=== PATIENT | male | born 1930 | race Two or more races ===

== ENCOUNTER 2017-08-11 21:37 | Inpatient (IN) | payer MEDICARE, MEDICAID ==
[~2017-08-11] VITALS: Ht 170.2 cm; Wt 76.0 kg
[~2017-08-11 21:37] MED LIST: BENA20TA2 PO; BENA20TA78 PO; CHOL100040 PO; CLOP75TA2 PO; FURO20TA4 PO; GLIM2TAB2 PO; POTA10TA25 PO
--- NOTE | 2017-08-11 21:39 | NUR ---
PT ARRIVED IN THE ER BY [facility]CUE AMBULANCE, TO BED 3 VIA STRETCHER. PT C/O HEADACHE AND BLURRED VISION X 2 DAYS, DENIES N/V. RESP EVEN AND UNLABORED, NAD NOTED. SKIN WARM AND DRY. PT PLACED ON V/S MONITOR.
[2017-08-11 22:04] LABS: BASOPHILS % (AUTO) 0.5 % (0.0-2.0); EOSINOPHILS # (AUTO) 0.2 /CMM (0.0-0.7); EOSINOPHILS % (AUTO) 3.1 % (0.0-6.0); HEMATOCRIT 35 % (39-51); HEMOGLOBIN 11.8 g/dL (13.5-17.5); LYMPHOCYTES # (AUTO) 2.3 /CMM (0.8-4.8); LYMPHOCYTES % (AUTO) 42.5 % (20.0-44.0); MEAN CORPUSCULAR HEMOGLOBIN 32 PG (26.0-33.0); MEAN CORPUSCULAR HGB CONC 34 g/dl (31.0-36.0); MEAN CORPUSCULAR VOLUME 95 fL (80-96); MONOCYTES # (AUTO) 0.5 /CMM (0.1-1.30); MONOCYTES % (AUTO) 9.4 % (2.0-12.0); NEUTROPHILS # (AUTO) 2.4 /CMM (1.8-8.9); NEUTROPHILS % (AUTO) 44.5 % (43.0-81.0); PLATELET COUNT (AUTO) 165 /CMM (150-450); RDW COEFFICIENT OF VARIATION 15.2 (11.5-15.0); RED BLOOD CELL COUNT(AUTO) 3.67 MIL/uL (4.5-6.0); WHITE BLOOD COUNT (AUTO) 5.3 K/uL (4.3-11.0)
--- NOTE | 2017-08-11 22:07 | NUR ---
PT TO CT VIA STRETCHER, VSS.
--- NOTE | 2017-08-11 22:15 | NUR ---
PT BACK FROM CT VIA STRETCHER TO BED 3. NAD NOTED
[2017-08-11] MEDS ORDERED: MORPHINE SULFATE INJ 2 MG/ML DISP.SYRIN ONE (22:25)
[2017-08-11 22:30] LABS: ALBUMIN 3.8 g/dL (3.4-5.0); BILIRUBIN,DIRECT 0.1 mg/dL (0.0-0.2); BILIRUBIN,TOTAL 1.2 mg/dL (0.2-1.0); INR 0.96 (0.87-1.13); TOTAL PROTEIN, SERUM 7.5 g/dL (6.4-8.2); TROPONIN I 0.053 ng/mL (0.00-0.056)
[2017-08-11] MEDS ORDERED: MORPHINE SULFATE INJ 2 MG/ML DISP.SYRIN IV ONE (22:30)
--- NOTE | 2017-08-11 22:36 | NUR ---
MEDICATED ORDERED BY
--- NOTE | 2017-08-11 22:50 | NUR ---
PT STATES HEADACHE IS GONE. PAIN IS 0.
--- NOTE | 2017-08-12 00:44 | NUR ---
PT GOING TO TELE ROOM 112. REPORT GIVEN TO DANICA.
--- NOTE | 2017-08-12 00:59 | NUR ---
PT TRANS TO TELE ROOM 112 VIA STRETCHER ACLS BY RN. RN AT BEDSIDE TO RECEIVE PT. VSS.
[2017-08-12] MEDS ORDERED: Z GUARD REMEDY 2 OZ OINT TP PRN (01:00)
[2017-08-12] MEDS ORDERED: MAG HYDROX/AL HYDROX/SIMETH 30 ML UDC PO PRN (01:00)
[2017-08-12] MEDS ORDERED: MAGNESIUM HYDROXIDE 30 ML UDC PO PRN (01:00)
[2017-08-12] MEDS ORDERED: CLONIDINE HCL 0.1 MG TABLET PO PRN (01:00)
[2017-08-12] MEDS ORDERED: DEXTROSE 50%-WATER 50 ML DISP.SYRIN IV PRN (01:00)
[2017-08-12] MEDS ORDERED: ZOLPIDEM TARTRATE 5 MG TABLET PO PRN (01:00)
[2017-08-12] MEDS ORDERED: INSULIN REGULAR, HUMAN 100 UNIT/ML 3 ML VIAL SQ PRN (01:00)
[2017-08-12] MEDS ORDERED: ONDANSETRON HCL/PF 4 MG/2 ML VIAL IVP PRN (01:00)
[2017-08-12] MEDS ORDERED: HYDROCODONE/APAP 5/325MG 1 EACH TABLET PO PRN (01:00)
[2017-08-12] MEDS ORDERED: ENOXAPARIN SODIUM 40 MG/0.4 ML DISP.SYRIN SQ ONE (01:17)
[2017-08-12] MEDS: ENOXAPARIN SODIUM 40 MG/0.4 ML DISP.SYRIN SQ SCH (01:58)
[2017-08-12 04:00] VITALS: BP 97/57
[2017-08-12 08:00] VITALS: BP 97/57
--- NOTE | 2017-08-12 08:00 | NUR ---
FISH SALTER INITIAL NOTE RN RECEIVED THE PATIENT IN STABLE CONDITION ON TELE CURRENTLY V-PACING PATIENT HAS PACEMAKER IN PLACE, PATIENT STATES HEADACHE HAS STARTED TO CEASED NOT NAUSEA OR VOMITING PT B/P DECREASED BELIEVED TO BE DUE TO MORPHINE GIVEN IN ER. RN WILL CONTINUE TO MONITOR RN WILL HOLD B/P MEDICATION PER PATIENTS REQUEST AND ALSO DUE TO DECREASED B/P . RN WILL CONTINUE TO MONITOR THROUGHOUT HE DAY
[2017-08-12] MEDS: CLOPIDOGREL BISULFATE 75 MG TABLET PO SCH (08:20)
[2017-08-12] MEDS: BLOOD SUGAR DIAGNOSTIC 1 EACH STRIP VI SCH ×4 (08:20→21:16)
[2017-08-12] MEDS: BENAZEPRIL HCL 20 MG TABLET PO SCH (08:20)
[2017-08-12] MEDS ORDERED: FUROSEMIDE 20 MG TABLET PO SCH (09:00)
[2017-08-12 09:33] VITALS: BP 97/57
[2017-08-12] MEDS: ATORVASTATIN 10 MG TABLET PO SCH (10:00)
--- NOTE | 2017-08-12 10:00 | NUR ---
RN NOTE PATIENT STATES NO PAIN OR DISCOMFORT AT THIS TIME RN WILL CONTINUE TO FOLLOW
[2017-08-12 10:41] LABS: THYROID STIMULATING HORMONE 3.784 uIU/mL (0.358-3.74)
[2017-08-12 11:24] LABS: ALBUMIN 3.7 g/dL (3.4-5.0); ALKALINE PHOSPHATASE 46 U/L (46-116); ASPARTATE AMINOTRANSFERASE 25 U/L (15-37); CALCIUM, SERUM 8.5 mg/dL (8.5-10.1); CARBON DIOXIDE 28 mmol/L (21-32); CHLORIDE 108 mmol/L (98-107); CREATININE 1.4 mg/dL (0.6-1.3); GLUCOSE 96 mg/dL (74-106); POTASSIUM 4.1 mmol/L (3.5-5.1); SODIUM SERUM 145 mmol/L (136-145); TOTAL PROTEIN, SERUM 6.9 g/dL (6.4-8.2); UREA NITROGEN, BLOOD 17 mg/dL (7-18)
[2017-08-12 11:33] LABS: ALANINE AMINOTRANSFERASE 28 U/L (12-78)
--- NOTE | 2017-08-12 11:45 | NUR ---
RN NOTE PATIENT REQUESTING THAT HE IS GIVEN CBG COVERAGE PRIOR TO FOOD RN EXPLAINED IMPORTANCE OF INSULIN COVERAGE ONCE FOOD ARRIVES AND THE NEED TO ASSESS CBG ACCORDINGLY RN WILL CONTINUE TO FOLLOW
[2017-08-12 12:00] VITALS: BP 100/61
[2017-08-12] MEDS: *INSULIN REGULAR(HUMULIN R)HUM 100 UNIT/ML VIAL SQ PRN ×2 (12:38→21:20)
[2017-08-12 13:21] LABS: MAGNESIUM 1.9 mg/dL (1.8-2.4)
[2017-08-12] MEDS: ACETAMINOPHEN 325 MG TABLET PO PRN ×2 (14:58→21:18)
--- NOTE | 2017-08-12 14:58 | NUR ---
RN NOTE PATIENT STATES HE IS STARTING TO EXPERIENCE A HEAD ACHE DUE TO HIGH B/P OR HIGH CBG , RN ASSESSED BOTH , MANUAL B/P ASSESSED AT 112/72 HR 62, PT CBG 152, PATIENT [id number] HE WANTS CBG MEDICATION BEFORE BLOOD SUGAR INCREASE OVER 130 RN EXPLAINS HOSPITAL PROTOCAL PATIENT STATES HE HAS BEEN DEALING WITH THIS FOR OVER 40 YEAR HE KNOWS BEST . RN ACKNOWLEDGED AND INFORMS PATIENT SHE WILL NOTIFIED THE MD
[2017-08-12 16:00] VITALS: BP 93/57
--- NOTE | 2017-08-12 16:12 | NUR ---
RN NOTE PATIENT HAS SON DESPITE PATIENT FIRST CLAIMING HE HAD NO LIVING RELATIVES, SON VISITED AND SPOKE WITH PATIENT AND RN OVER THE PHONE PATIENT SON NAME IS ARYAN [phone] PHARMACY GIVEN SON NUMBER TO CLARIFY MEDICATION PATIENT SON ALSO STATES THAT HE WILL BRING PATIENT MEDICATION TO HOSPITAL TOMORROW SO THAT PHARMACY WILL VERIFY
--- NOTE | 2017-08-12 16:51 | NUR ---
RN NOTE MD CONTACTED /PAGED RN AWAITING RETURN CALL FROM MD CARRASCO IN REGARDS TO PATIENT B/P AND ALSO REFUSAL OF B/P MEDICATIONS AND CHOLESTEROL MEDICATION. PATIENT ALERT AND ORIENTED BUT REFUSED B/P MEDS STATES HE WOULD LIKE TO SPEAK WITH MD , NO MD CAME TO EVALUATED PATIENT AT BEDSIDE CURRENTLY AND PATIENT EXPRESSES CONCERNS RN TOLD PATIENT THAT SHE WILL CONTACT MD. RN HAS SEEN MD TODAY BUT PATIENT STATES KNOW ONE HAS OBSERVED HIM YET TODAY . RN AWAITING RETURN CALL FROM ,
--- NOTE | 2017-08-12 17:01 | NUR ---
RN NOTE RN SPOKE WITH MD CARRASCO IN REGARDS TO THE PATIENTS CONCERNS ACKNOWLEDGED AND STATES HE A WILL ADDRESS THE PATIENT CONCERNS IN THE AM ALSO NOTIFIED ABOUT PATIENT DECREASED B/P STATES HE IS AWARE AND CURRENTLY NO NEW ORDERS GIVEN PATIENT MADE AWARE RN WILL CONTINUE TO FOLLOW
--- NOTE | 2017-08-12 17:12 | NUR ---
RN NOTE CBG LOW 59 PATIENT REFUSED ORANGE JUICE HOWEVER PATIENT STATES HE WILL TAKE MICHELET CRACKERS INSTEAD CHARGE NURSE NOTIFIED PATIENT STATED HE WILL BE OK AFTER DINNER RN WILL CONTINUE TO MONITOR
--- NOTE | 2017-08-12 19:20 | NUR ---
RN NOTE PATIENT STABLE THROUGHOUT THE DAY HEADACHE X1 , TYLENOL GIVEN PATIENT ALSO HAD DECREASED CBG , PT REFUSED ORANGE JUICE FOOD TRAY CAME PATIENT ATE 100 PERCENT NO HEADACHE CURRENTLY , PATIENT NEED MET PATIENT STABLE AT THIS TIME CARE ENDORSED TO PM RN ,
[2017-08-12 20:00] VITALS: BP 118/62
--- NOTE | 2017-08-12 20:43 | NUR ---
RN:TELE: PT RECEIVED IN BED ALERT AND ORIENTED, ABLE TO MAKE NEEDS KNOWN. PER DAYSHIFT PT FREQUENTLY REFUSING MEDICATIONS DESPITE EDUCATION AND IS VERY PARTICULAR ABOUT THE TIMING OF SPECIFIC NURSING INTERVENTIONS. D/W PT REGARDING SCHEDULED CARDURA MEDICATION THIS HS, PT AGREEABLE TO TAKE MEDICATION. PT INSTRUCTED TO USE URINAL AFTER TAKING THIS MEDICATION OPPOSED TO AMBULATING TO THE BATHROOM. OR IF PT REQUIRERS ASSISTANCE TO BATHROOM TO USE CALL LIGHT, THIS MEDICATION MAY CAUSE ORTHOSTATIC HYPOTENSION. FALL PRECAUTIONS IN PLACE. PT SON FREQUENTLY CALLS BUT PT STATES HE DOES NOT WANT TO SPEAK TO HIM BECAUSE HE IS RESTING. PT SON VERY PERSISTENT TO TALK TO PT, PT AGREEABLE TO TALK TO SON. PT DENIES LE AT THIS TIME. PT SR ON TELE WITH OCCASIONAL V PACING, LEFT CW PACEMAKER IN PLACE. BP WNL. WILL CONTINUE TO MONITOR CLOSELY.
[2017-08-12] MEDS ORDERED: DOXAZOSIN MESYLATE (1 MG) 1 MG TABLET PO SCH (22:00)
[2017-08-13] VITALS: BP 139/95
[2017-08-13] MEDS: ENOXAPARIN SODIUM 40 MG/0.4 ML DISP.SYRIN SQ SCH (00:28)
[2017-08-13 04:00] VITALS: BP 126/88
--- NOTE | 2017-08-13 05:50 | NUR ---
RN:TELE: PT HAD UNEVENTFUL NIGHT, REPORTS SLEEPING WELL. PT REQUEST AM BLOOD SUGAR CHECK TO OCCUR WHEN TRAYS ARE ON THE UNIT. VITAL STABLE THROUGHOUT THE SHIFT. PT RESTING COMFORTABLY. WILL ENDORSE CARE TO ONCOMING SHIFT.
[2017-08-13 07:15] LABS: BASOPHILS % (AUTO) 0.3 % (0.0-2.0); EOSINOPHILS # (AUTO) 0.2 /CMM (0.0-0.7); EOSINOPHILS % (AUTO) 4.3 % (0.0-6.0); HEMATOCRIT 35 % (39-51); HEMOGLOBIN 11.7 g/dL (13.5-17.5); LYMPHOCYTES # (AUTO) 1.9 /CMM (0.8-4.8); LYMPHOCYTES % (AUTO) 39.8 % (20.0-44.0); MEAN CORPUSCULAR HEMOGLOBIN 32 PG (26.0-33.0); MEAN CORPUSCULAR HGB CONC 33 g/dl (31.0-36.0); MEAN CORPUSCULAR VOLUME 97 fL (80-96); MONOCYTES # (AUTO) 0.5 /CMM (0.1-1.30); MONOCYTES % (AUTO) 9.9 % (2.0-12.0); NEUTROPHILS # (AUTO) 2.2 /CMM (1.8-8.9); NEUTROPHILS % (AUTO) 45.7 % (43.0-81.0); PLATELET COUNT (AUTO) 161 /CMM (150-450); RDW COEFFICIENT OF VARIATION 14.5 (11.5-15.0); RED BLOOD CELL COUNT(AUTO) 3.63 MIL/uL (4.5-6.0); WHITE BLOOD COUNT (AUTO) 4.8 K/uL (4.3-11.0)
[2017-08-13 07:26] LABS: ALANINE AMINOTRANSFERASE 26 U/L (12-78); ALBUMIN 3.4 g/dL (3.4-5.0); ALKALINE PHOSPHATASE 43 U/L (46-116); ASPARTATE AMINOTRANSFERASE 21 U/L (15-37); BILIRUBIN,TOTAL 1.2 mg/dL (0.2-1.0); CALCIUM, SERUM 8.5 mg/dL (8.5-10.1); CARBON DIOXIDE 31 mmol/L (21-32); CHLORIDE 107 mmol/L (98-107); CREATININE 1.4 mg/dL (0.6-1.3); GLUCOSE 85 mg/dL (74-106); MAGNESIUM 1.7 mg/dL (1.8-2.4); POTASSIUM 4.2 mmol/L (3.5-5.1); SODIUM SERUM 144 mmol/L (136-145); TOTAL PROTEIN, SERUM 6.8 g/dL (6.4-8.2); UREA NITROGEN, BLOOD 21 mg/dL (7-18)
[2017-08-13 07:34] LABS: TROPONIN I 0.047 ng/mL (0.00-0.056)
[2017-08-13 08:00] VITALS: BP 122/62
--- NOTE | 2017-08-13 08:10 | NUR ---
RN NOTE CORRECTION TO VITAL SIGNS DOCUMENTATION FOR ALVARADO HOLLIS ON 08/12/17 ALL B/P TAKEN VIA RIGHT UPPER ARM AUTOMATIC CUFF AND MANUAL B/P
--- NOTE | 2017-08-13 08:15 | NUR ---
PLASTIC PRESS OPERATOR INITIAL NOTE RN RECEIVED THE PATIENT IN STABLE CONDITION ON TELE CURRENTLY SINUS RHYTHM PATIENT HAS PACEMAKER IN PLACE, PATIENT STATES NO HEADACHE, NAUSEA OR VOMITING PT B/P AND CBG STABLE . RN WILL CONTINUE TO MONITOR RN WILL HOLD B/P MEDICATION UNTIL AFTER PATIENT EATS BREAKFAST PER PATIENTS REQUEST RN WILL CONTINUE TO MONITOR THROUGHOUT HE DAY.
[2017-08-13] MEDS: BLOOD SUGAR DIAGNOSTIC 1 EACH STRIP VI SCH ×2 (08:54→11:44)
[2017-08-13] MEDS: BENAZEPRIL HCL 20 MG TABLET PO SCH (08:54)
[2017-08-13] MEDS: CLOPIDOGREL BISULFATE 75 MG TABLET PO SCH (08:54)
[2017-08-13] MEDS: ATORVASTATIN 10 MG TABLET PO SCH (08:55)
--- NOTE | 2017-08-13 10:36 | NUR ---
RN NOTE PATIENT REQUESTING THAT UPON DISCHARGE HE IS GIVEN PM DOSE OF CADURA 1 MG , AND THAT HE HAS A APPOINTMENT WITH HIS FAMILY MD IN THE AM AND WILL REVIEW NEW MEDICATIONS WITH HIM AT THAT TIME. RN SPOKE WITH CHARGE NURSE IN REGARDS TO PATIENTS REQUEST CHARGE NURSE OK'D THAT RN GIVE THE MEDICATION TO THE PATIENT UPON DISCHARGE , THEN STATES TO FOLLOW UP WITH MD DANILO FORTUNE TO PATIENT BEING DISCHARGED
--- NOTE | 2017-08-13 10:40 | NUR ---
RN SPOKE WITH MD CARRASCO EXPECTED DISCHARGE TODAY , PATIENT HAS ALSO SPOKEN WITH THE PROVIDER PLAN OF CARE EXPLAINED VIA RN AND MD , PATIENT VERBALIZES UNDERSTANDING RN WILL CONTINUE TO FOLW AND AWAIT DC PLANNING
--- NOTE | 2017-08-13 10:44 | NUR ---
RN NOTE PER MD MAGANA RN IS OK TO PRE PULL PM DOSE OF CADURA AND SEND WITH THE PATIENT UPON DISCHARGE CHARGE NURSE SOON NOTIFIED MD WILL BE ALSO SUPPLY A PRESCRIPTION FOR THE MEDICATION UPON DISCHARGE. PATIENT ALSO MADE AWARE OF MD DECISION, RN WILL CONTINUE TO FOLLOW
[2017-08-13] MEDS ORDERED: Magnesium 1GM/D5W 100ML PREMIX 100 ML IV SCH (11:00)
[2017-08-13 12:08] VITALS: BP 112/68
--- NOTE | 2017-08-13 13:00 | NUR ---
Rn note patient discharged without issue patient discharge paperwork reviewed and discussed with patient patient verbalized understanding patient iv removed patient son aurther picked patient up from the front , patient escorted by nursing staff, no issues present rn informed charge nurse and biochemistry technologist of patient discharge.
[2017-08-14] MEDS ORDERED: MECL-102 PO (11:55)
[2017-08-14] MEDS ORDERED: TAMS0.4C34 PO (11:55)
[2017-08-14] MEDS ORDERED: BENA40TA2 PO (11:55)
== END 2017-08-13 13:24 | disposition home or self-care (01) | DRG 684 ==
LOC: ER 21:38 → TELE1 08-12 00:39 → MEDSG1 08-13 10:49
PROVIDERS: ADMIT Internal Medicine; ATTEND Internal Medicine
DX: I12.9 Hypertensive chronic kidney disease with stage 1 through stage 4 chronic kidney disease, or unspecified chronic kidney disease (principal); E11.22 Type 2 diabetes mellitus with diabetic chronic kidney disease; D64.9 Anemia, unspecified; Z95.1 Presence of aortocoronary bypass graft; I25.10 Atherosclerotic heart disease of native coronary artery without angina pectoris; N18.9 Chronic kidney disease, unspecified; K21.9 Gastro-esophageal reflux disease without esophagitis; Z95.0 Presence of cardiac pacemaker; R51 Headache; T46.4X5A Adverse effect of angiotensin-converting-enzyme inhibitors, initial encounter; T50.1X5A Adverse effect of loop [high-ceiling] diuretics, initial encounter; Y92.009 Unspecified place in unspecified non-institutional (private) residence as the place of occurrence of the external cause
CPT/HCPCS: 36415; 70450-TC; 71010-TC; 80053-TC; 80061-TC; 80076-TC; 82306; 82728-TC; 82962-TC; 83540-TC; 83735-TC; 84100-TC; 84439-TC; 84443-TC; 84484-TC; 85025-TC; 85730-TC; 87081-TC; 93307-TC; A4606; J1650; J1815; J2270; J3475; Z7610

== ENCOUNTER 2017-08-14 11:09 | Inpatient (IN) | payer MEDICARE, MEDICAID ==
[~2017-08-14] VITALS: Ht 170.2 cm; Wt 83.9 kg
[~2017-08-14 11:09] MED LIST changes: -BENA20TA78 PO; -POTA10TA25 PO
--- NOTE | 2017-08-14 11:12 | NUR ---
HUSSAIN RA 38 FROM [address] STOP. c/o dizziness and sob while on his way to see his PCP. GOWNED PT PLACED ON MONITOR. AWAITING MD ORDER. PT HAS CARSON #18 G IV ACCESS CORRECTIONAL CASE MANAGER.
[2017-08-14] MEDS ORDERED: IV NS 0.9% 500 ML BAG IV ONE (11:30)
[2017-08-14 11:37] LABS: BASOPHILS % (AUTO) 0.9 % (0.0-2.0); EOSINOPHILS # (AUTO) 0.1 /CMM (0.0-0.7); EOSINOPHILS % (AUTO) 3.2 % (0.0-6.0); HEMATOCRIT 35 % (39-51); HEMOGLOBIN 11.6 g/dL (13.5-17.5); LYMPHOCYTES # (AUTO) 1.4 /CMM (0.8-4.8); LYMPHOCYTES % (AUTO) 36.9 % (20.0-44.0); MEAN CORPUSCULAR HEMOGLOBIN 32 PG (26.0-33.0); MEAN CORPUSCULAR HGB CONC 33 g/dl (31.0-36.0); MEAN CORPUSCULAR VOLUME 95 fL (80-96); MONOCYTES # (AUTO) 0.3 /CMM (0.1-1.30); MONOCYTES % (AUTO) 7.9 % (2.0-12.0); NEUTROPHILS # (AUTO) 2.1 /CMM (1.8-8.9); NEUTROPHILS % (AUTO) 51.1 % (43.0-81.0); PLATELET COUNT (AUTO) 159 /CMM (150-450); RED BLOOD CELL COUNT(AUTO) 3.64 MIL/uL (4.5-6.0); WHITE BLOOD COUNT (AUTO) 3.9 K/uL (4.3-11.0)
[2017-08-14 11:45] LABS: CALCIUM, SERUM 8.2 mg/dL (8.5-10.1); CARBON DIOXIDE 28 mmol/L (21-32); CHLORIDE 105 mmol/L (98-107); CREATININE 1.6 mg/dL (0.6-1.3); GLUCOSE 269 mg/dL (74-106); POTASSIUM 4.2 mmol/L (3.5-5.1); SODIUM SERUM 139 mmol/L (136-145); UREA NITROGEN, BLOOD 26 mg/dL (7-18)
[2017-08-14] MEDS ORDERED: MECL-102 PO (11:55)
[2017-08-14] MEDS ORDERED: TAMS0.4C34 PO (11:55)
[2017-08-14] MEDS ORDERED: BENA40TA2 PO (11:55)
[2017-08-14 11:56] LABS: INR 0.98 (0.87-1.13); PROTHROMBIN TIME 10.2 SECS (9.5-12.7)
--- NOTE | 2017-08-14 11:59 | NUR ---
PATIENT ASSIGNED TO [facility] 324-1
[2017-08-14 12:11] LABS: APPEARANCE,URINE Clear (CLEAR); BILIRUBIN,URINE Negative (NEGATIVE); BLOOD, URINE Trace-lysed Ery/uL (NEGATIVE); COLOR,URINE Yellow (YELLOW); KETONES,URINE Negative (NEGATIVE); LEUKOCYTE ESTERASE ,URINE Negative (NEGATIVE); NITRITE, URINE Negative (NEGATIVE); PH,URINE 6.5 (5.0-8.0); PROTEIN,URINE 30 mg/dl (NEGATIVE); UGLUCOSE 100 MG/DL mg/dL (NEGATIVE)
[2017-08-14 12:24] LABS: BACTERIA,URINE Rare /HPF (None Seen); RBC,URINE 0-2 /HPF (0-2); SQUAMOUS EPITHELIAL CELL,UR Rare /HPF (None Seen); WBC,URINE 0-2 /HPF (0-3)
--- NOTE | 2017-08-14 12:52 | NUR ---
GAVE REPORT TO HECTOR CHILDERS ROOM 324-[address] JEFF RM.
[2017-08-14 13:20] VITALS: BP 113/59
--- NOTE | 2017-08-14 13:20 | NUR ---
TELE/SLITTER AND REWINDER NOTES ADMITTED THIS 87 Y/O MALE. PT. FROM ER WITH DIAGNOSIS NEAR SYNCOPE AND DIZZINESS. AWAKE, ALERT AND ORIENTED X4. NO C/O PAIN, DIZZINESS, CHEST PAIN, N/V, OR ANY DISCOMFORT. ORIENTED TO ROOM AND SURROUNDINGS, PLACED PT. ON TELE, V PACING=60. ON O2 AT 2L/MIN VIA NASAL CANNULA. SON AT BEDSIDE. ALL QUESTIONS AND CONCERNS ANSWERED DURING ADMISSION. NO ACUTE DISTRESS. INSTRUCTED TO CALL FOR ASSISTANCE, CALL LIGHT IS WITHIN REACH.
[2017-08-14] MEDS ORDERED: MAGNESIUM HYDROXIDE 30 ML UDC PO PRN (13:30)
[2017-08-14] MEDS ORDERED: ACETAMINOPHEN 325 MG TABLET PO PRN (13:30)
[2017-08-14] MEDS ORDERED: ENOXAPARIN SODIUM 40 MG/0.4 ML DISP.SYRIN SQ SCH (13:30)
[2017-08-14] MEDS ORDERED: ONDANSETRON HCL/PF 4 MG/2 ML VIAL IVP PRN (13:30)
[2017-08-14] MEDS ORDERED: MAG HYDROX/AL HYDROX/SIMETH 30 ML UDC PO PRN (13:30)
[2017-08-14] MEDS ORDERED: Z GUARD REMEDY 2 OZ OINT TP PRN (13:30)
[2017-08-14] MEDS ORDERED: ZOLPIDEM TARTRATE 5 MG TABLET PO PRN (13:30)
[2017-08-14] MEDS ORDERED: HYDROCODONE/APAP 5/325MG 1 EACH TABLET PO PRN (13:30)
[2017-08-14] MEDS: IV NS 0.9% 1,000 ML IV PRN (14:03)
[2017-08-14] MEDS: ENOXAPARIN SODIUM 30 MG/0.3 ML DISP.SYRIN SQ SCH (14:03)
[2017-08-14] MEDS ORDERED: DEXTROSE 50%-WATER 50 ML DISP.SYRIN IV PRN (14:30)
[2017-08-14] MEDS: BLOOD SUGAR DIAGNOSTIC 1 EACH STRIP IN SCH ×3 (14:30→21:51)
[2017-08-14] MEDS: INSULIN REGULAR, HUMAN 100 UNIT/ML 3 ML VIAL SQ PRN ×2 (14:42→21:53)
[2017-08-14 16:00] VITALS: BP 102/65
[2017-08-14] MEDS: GLIMEPIRIDE 4 MG TABLET PO SCH (17:38)
--- NOTE | 2017-08-14 18:58 | NUR ---
TELE/RN CLOSING NOTES PT. IN BED A&OX4. BREATHING UNLABORED ON ROOM AIR. NO S/S OF ACUTE DISTRESS. IV ACCESS IS INTACT AND PATENT WITH IV FLUIDS RUNNING AT 125 ML/HR. BED IS IN LOWEST, LOCKED POSITION, 2 SIDE RAILS UP, AND CALL LIGHT WITHIN REACH. WILL ENDORSE REPORT TO NURSE.
--- NOTE | 2017-08-14 19:45 | NUR ---
SMOOTH PLATER INITIAL NOTE PT REMAINS IN NO ACUTE DISTRESS AT THIS TIME. PT IS A/O X3 AND ABLE TO MAKE NEEDS KNOWN. ON TELE WITH SR 66 V PACING. PT HAS LEFT HAND 20G THAT IS RUNNING IVF NS @125CC/HR. COMFORT AND SAFETY MEASURES TO BE ENSURED DURING THE SHIFT. WILL CONTINUE TO MONITOR FOR ANY CHANGES DURING THE SHIFT.
[2017-08-14 20:00] VITALS: BP 105/56
[2017-08-14 22:00] VITALS: BP 105/56
[2017-08-14] MEDS ORDERED: TAMSULOSIN 0.4 MG CAP.SR.24H PO SCH (22:00)
[2017-08-15] VITALS: BP 130/61
--- NOTE | 2017-08-15 02:56 | NUR ---
RN NOTE PT BS IS 46 UPON PT REQUEST TO CHECK. STATED " I DONT FEEL GOOD PLEASE CHECK SUGAR". AFTER I CHECKED AND TOLD HIM THE NUMBER HE STATED "I DEAL WITH THIS AT HOME, JUST GIVE ME JUICE AND I WILL BE BETTER. I DO NOT WANT TO GO TOO HIGH THOUGH. PT DRANK 1 1/2 ORANGE JUICE BOX'S.
[2017-08-15 04:00] VITALS: BP 121/61
[2017-08-15] MEDS: BLOOD SUGAR DIAGNOSTIC 1 EACH STRIP IN SCH ×3 (06:42→17:30)
--- NOTE | 2017-08-15 07:30 | NUR ---
WATCH BAND ASSEMBLER OPENING NOTE PATIENT IS ALERT AND ORIENTED x4. NO PAIN AT THIS TIME. NO SOB OR DISTRESS NOTED. CALL LIGHT WITHIN REACH. SAFETY MEASURES IMPLEMENTED. ABLE TO COMMUNICATE NEEDS. IV ON LEFT HAND INTACT AND PATENT NO REDNESS OR SWELLING NOTED. IV FLUIDS RUNNING AT 125 ML/HR. ORTHOSTATIC BLOOD PRESSURE TO BE TAKEN. TELE MONITOR-V PACING, PACE MAKER ON LEFT CHEST WALL. MONITOR ON AND 67 FOR HEART RATE. EDUCATED PATIENT ON SYNCOPE AND RISK FACTOR, WILL CONTINUE TO MONITOR
[2017-08-15 08:00] VITALS: BP_SYST 109; BP_DIAS 57; BP_DIAS 62
[2017-08-15 08:05] LABS: BASOPHILS % (AUTO) 0.3 % (0.0-2.0); EOSINOPHILS # (AUTO) 0.1 /CMM (0.0-0.7); HEMATOCRIT 32 % (39-51); HEMOGLOBIN 10.9 g/dL (13.5-17.5); LYMPHOCYTES # (AUTO) 1.6 /CMM (0.8-4.8); LYMPHOCYTES % (AUTO) 32.7 % (20.0-44.0); MEAN CORPUSCULAR HEMOGLOBIN 33 PG (26.0-33.0); MEAN CORPUSCULAR HGB CONC 34 g/dl (31.0-36.0); MEAN CORPUSCULAR VOLUME 97 fL (80-96); MONOCYTES # (AUTO) 0.3 /CMM (0.1-1.30); MONOCYTES % (AUTO) 7.3 % (2.0-12.0); NEUTROPHILS # (AUTO) 2.7 /CMM (1.8-8.9); NEUTROPHILS % (AUTO) 56.7 % (43.0-81.0); PLATELET COUNT (AUTO) 139 /CMM (150-450); RDW COEFFICIENT OF VARIATION 15.2 (11.5-15.0); RED BLOOD CELL COUNT(AUTO) 3.34 MIL/uL (4.5-6.0); WHITE BLOOD COUNT (AUTO) 4.8 K/uL (4.3-11.0)
[2017-08-15 08:16] LABS: CALCIUM, SERUM 8.1 mg/dL (8.5-10.1); CARBON DIOXIDE 26 mmol/L (21-32); CHLORIDE 109 mmol/L (98-107); CREATININE 1.3 mg/dL (0.6-1.3); GLUCOSE 100 mg/dL (74-106); MAGNESIUM 1.8 mg/dL (1.8-2.4); PHOSPHORUS 3.9 mg/dL (2.5-4.9); POTASSIUM 4.1 mmol/L (3.5-5.1); SODIUM SERUM 144 mmol/L (136-145); UREA NITROGEN, BLOOD 18 mg/dL (7-18)
[2017-08-15] MEDS: GLIMEPIRIDE 4 MG TABLET PO SCH ×2 (08:23→17:00)
[2017-08-15 08:27] LABS: CHOLESTEROL 158 mg/dL (<200); HDL CHOLESTEROL 49 mg/dL (40-60); LDL 105 mg/dL (0-99); THYROID STIMULATING HORMONE 1.456 uIU/mL (0.358-3.74); TRIGLYCERIDES 57 mg/dL (30-150)
[2017-08-15] MEDS: IV NS 0.9% 1,000 ML IV PRN (08:29)
--- NOTE | 2017-08-15 08:30 | NUR ---
RN NOTE PATIENT TAKEN OFF TELE MONITOR PER MD. NOW MEDSUR. PATIENT IS STABLE
[2017-08-15] MEDS ORDERED: CLOPIDOGREL BISULFATE 75 MG TABLET PO SCH (09:00)
[2017-08-15] MEDS ORDERED: CHOLECALCIFEROL 1,000 UNIT TABLET (VIT D3) PO SCH (09:00)
[2017-08-15 09:01] LABS: B-TYPE NATRIURETIC PEPTIDE 485 PG/ML (0-125)
[2017-08-15] MEDS: INSULIN REGULAR, HUMAN 100 UNIT/ML 3 ML VIAL SQ PRN (12:04)
[2017-08-15] MEDS: ENOXAPARIN SODIUM 30 MG/0.3 ML DISP.SYRIN SQ SCH (13:38)
--- NOTE | 2017-08-15 17:48 | NUR ---
BUMPER MACHINE OPERATOR NOTE PATIENT IS ALERT AND ORIENTED x4. NO PAIN AT THIS TIME. NO SOB OR DISTRESS NOTED. CALL LIGHT WITHIN REACH AT ALL TIMES.SAFETY MEASURES IMPLEMENTED. ABLE TO COMMUNICATE NEEDS. IV REMOVED, SKIN INTACT. ALL BELONGINGS ACCOUNTED FOR AND WITH PATIENT. ALL DISCHARGE INSTRUCTIONS GIVEN TO PATIENT AND SON-ARYAN. NO NEW MEDICATIONS/PRESCRIPTIONS. EDUCATED PATIENT ON RISKS FOR SYNCOPE LEFT VIA PRIVATE CAR WITH LOVE BAEZA. PATIENT REFUSED 1700 MEDICATION AND BLOOD SUGAR CHECK.
== END 2017-08-15 17:50 | disposition home or self-care (01) | DRG 73 ==
LOC: ER 11:10 → TELE 12:47
DX: G90.8 Other disorders of autonomic nervous system (principal); N17.0 Acute kidney failure with tubular necrosis; E11.22 Type 2 diabetes mellitus with diabetic chronic kidney disease; D64.9 Anemia, unspecified; E86.0 Dehydration; I25.10 Atherosclerotic heart disease of native coronary artery without angina pectoris; K21.9 Gastro-esophageal reflux disease without esophagitis; N18.9 Chronic kidney disease, unspecified; N40.0 Benign prostatic hyperplasia without lower urinary tract symptoms; Z95.1 Presence of aortocoronary bypass graft; Z79.84 Long term (current) use of oral hypoglycemic drugs; Z95.0 Presence of cardiac pacemaker; Z91.81 History of falling; M19.90 Unspecified osteoarthritis, unspecified site; I12.9 Hypertensive chronic kidney disease with stage 1 through stage 4 chronic kidney disease, or unspecified chronic kidney disease
CPT/HCPCS: 36415; 71010-TC; 80048-TC; 80061-TC; 81000-TC; 82962-TC; 83735-TC; 83880; 84100-TC; 84443-TC; 84484-TC; 85025-TC; 85730-TC; 87081-TC; 93880-TC; A4606; J1650; J1815; J7030; J7040; Z7610

== ENCOUNTER 2017-08-18 19:46 | Inpatient (IN) | payer MEDICARE, MEDICAID ==
[~2017-08-18] VITALS: Ht 170.2 cm; Wt 79.5 kg
[~2017-08-18 19:46] MED LIST changes: -BENA20TA2 PO; +BENA40TA2 PO; +MECL-102 PO; +TAMS0.4C34 PO
--- NOTE | 2017-08-18 20:05 | NUR ---
PT CAME FROM HOME COMPLAIN OF HEADACHE AND DIZZYNESS TODAY WHILE AT HOME. PT AMBULATED WITH STEADY GAIT TO [facility].PT ASSESSED TO HAVE HIGH BLOOD PRESSURE WHEN VITAL SIGNS TAKEN,167/87. AWAIT ANY NEW ORDERS FROM
--- NOTE | 2017-08-18 20:08 | NUR ---
DR SUMNER AT BEDSIDE FOR EVAL.
[2017-08-18] MEDS ORDERED: LABETALOL 20 MG/4 ML VIAL IV ONE (20:30)
[2017-08-18 20:41] LABS: BASOPHILS % (AUTO) 0.4 % (0.0-2.0); EOSINOPHILS # (AUTO) 0.2 /CMM (0.0-0.7); EOSINOPHILS % (AUTO) 2.6 % (0.0-6.0); HEMATOCRIT 34 % (39-51); HEMOGLOBIN 11.4 g/dL (13.5-17.5); LYMPHOCYTES # (AUTO) 2.2 /CMM (0.8-4.8); LYMPHOCYTES % (AUTO) 37.7 % (20.0-44.0); MEAN CORPUSCULAR HEMOGLOBIN 32 PG (26.0-33.0); MEAN CORPUSCULAR HGB CONC 33 g/dl (31.0-36.0); MEAN CORPUSCULAR VOLUME 96 fL (80-96); MONOCYTES # (AUTO) 0.5 /CMM (0.1-1.30); MONOCYTES % (AUTO) 8.9 % (2.0-12.0); NEUTROPHILS # (AUTO) 2.9 /CMM (1.8-8.9); NEUTROPHILS % (AUTO) 50.4 % (43.0-81.0); PLATELET COUNT (AUTO) 160 /CMM (150-450); RED BLOOD CELL COUNT(AUTO) 3.56 MIL/uL (4.5-6.0); WHITE BLOOD COUNT (AUTO) 5.8 K/uL (4.3-11.0)
--- NOTE | 2017-08-18 20:46 | NUR ---
2034 STARTED IV LINE 20g TO THE LEFT AC, THEN LABS WERE DRAWN. WHEN THIS WAS COMPLETED PT WAS THEN TAKEN FOR HEAD CT DUE TO C/O OF HEADACHE AND DIZZYNESS.
[2017-08-18 20:49] LABS: CALCIUM, SERUM 8.9 mg/dL (8.5-10.1); CARBON DIOXIDE 29 mmol/L (21-32); CHLORIDE 106 mmol/L (98-107); CREATININE 1.2 mg/dL (0.6-1.3); GLUCOSE 112 mg/dL (74-106); POTASSIUM 4.6 mmol/L (3.5-5.1); SODIUM SERUM 140 mmol/L (136-145); UREA NITROGEN, BLOOD 18 mg/dL (7-18)
[2017-08-18 20:52] LABS: INR 0.96 (0.87-1.13)
[2017-08-18 20:54] LABS: ALANINE AMINOTRANSFERASE 35 U/L (12-78); ALBUMIN 3.8 g/dL (3.4-5.0); ALKALINE PHOSPHATASE 48 U/L (46-116); ASPARTATE AMINOTRANSFERASE 28 U/L (15-37); BILIRUBIN,DIRECT 0.2 mg/dL (0.0-0.2); BILIRUBIN,TOTAL 1.2 mg/dL (0.2-1.0); TOTAL PROTEIN, SERUM 7.4 g/dL (6.4-8.2)
[2017-08-18 20:57] LABS: TROPONIN I 0.055 ng/mL (0.00-0.056)
--- NOTE | 2017-08-18 21:01 | NUR ---
PT BACK FROM HEAD CT, APPEARS TO BE RESTING COMFORTABLE. VITALS TAKEN CURRENTLY COMPLAINS OF A HEADACHE WITH BLOOD PRESSURE OF 163/71.
[2017-08-18] MEDS ORDERED: LABETALOL 20 MG/4 ML VIAL ONE (21:22)
--- NOTE | 2017-08-18 21:27 | NUR ---
SIRISHA PAGED, MASTER OCEAN YACHT
--- NOTE | 2017-08-18 21:28 | NUR ---
CALLED NURSING SUP. FOR TELE BED
--- NOTE | 2017-08-18 21:34 | NUR ---
2120 BEFORE LABETALOL 10MG IVP GIVEN BY RN, BLOOD PRESSURE WAS 173/74. RN PUSHED 5MG IVP OVER A PERIOD OF 6 MINTES BLOOD PRESSURE DROPPED 145/74, MD MADE AWARE OF THIS. AWAIT ANY NEW ORDERS FROM MD BEFORE PT IS TRANFERED TO FLOOR FOR ADMISSION.
[2017-08-18 22:00] VITALS: BP 140/55
[2017-08-18] MEDS ORDERED: MAGNESIUM HYDROXIDE 30 ML UDC PO PRN (22:00)
[2017-08-18] MEDS ORDERED: MAG HYDROX/AL HYDROX/SIMETH 30 ML UDC PO PRN (22:00)
[2017-08-18] MEDS ORDERED: ONDANSETRON HCL/PF 4 MG/2 ML VIAL IVP PRN (22:00)
[2017-08-18] MEDS ORDERED: Z GUARD REMEDY 2 OZ OINT TP PRN (22:00)
[2017-08-18] MEDS ORDERED: ZOLPIDEM TARTRATE 5 MG TABLET PO PRN (22:00)
[2017-08-18 22:05] VITALS: BP 140/55
--- NOTE | 2017-08-18 22:08 | NUR ---
GAVE REPORT TO ALVARADO GUERRERO WHO WILL BE RECIEVE PT IN ROOM 103.
[2017-08-18] MEDS ORDERED: TAMSULOSIN 0.4 MG CAP.SR.24H ONE (22:14)
--- NOTE | 2017-08-18 22:15 | NUR ---
rn notes received patient from ER via stretcher with no respiratory distress or shortness of breath. Breathing even and unlabored. Alert and oriented, able to communicate needs verbally. No complaint of pain as of this time. Ambulatory with assist. Vital signs WNL. will continue to monitor.
[2017-08-18] MEDS: TAMSULOSIN 0.4 MG CAP.SR.24H PO SCH (22:49)
[2017-08-19] VITALS: BP 115/56
--- NOTE | 2017-08-19 01:00 | NUR ---
PATIENT REQUESTED TO HAVE BLOOD SUGAR CHECKED, NOTED WITH BLOOD SUGAR OF 209. PER PATIENT, SINCE HIS DIABETIC PILLS AREN'T AVAILABLE AT THIS HOSPITAL, HE WILL TAKE INSULIN. PER PATIENT HE DOESN'T TAKE INSULIN AT HOME JUST THE PILLS WE DON'T HAVE AVAILABLE PATIENT DEMANDING TO HAVE INSULIN. WILL RELAY TO DR. AMADOR.
--- NOTE | 2017-08-19 01:15 | NUR ---
ORDER RECEIVED FROM DR. AMADOR FOR MILD SLIDING SCALE. WILL CONTINUE TO MONITOR.
[2017-08-19] MEDS: BLOOD SUGAR DIAGNOSTIC 1 EACH STRIP IN SCH ×5 (01:17→21:35)
[2017-08-19] MEDS: INSULIN REGULAR, HUMAN 100 UNIT/ML 3 ML VIAL SQ PRN ×3 (01:29→21:36)
[2017-08-19] MEDS ORDERED: DEXTROSE 50%-WATER 50 ML DISP.SYRIN IV PRN (01:30)
[2017-08-19 04:00] VITALS: BP 117/60
[2017-08-19 04:02] LABS: BASOPHILS % (AUTO) 0.3 % (0.0-2.0); EOSINOPHILS # (AUTO) 0.2 /CMM (0.0-0.7); EOSINOPHILS % (AUTO) 3.3 % (0.0-6.0); HEMATOCRIT 33 % (39-51); LYMPHOCYTES % (AUTO) 36.8 % (20.0-44.0); MEAN CORPUSCULAR HEMOGLOBIN 32 PG (26.0-33.0); MEAN CORPUSCULAR HGB CONC 34 g/dl (31.0-36.0); MEAN CORPUSCULAR VOLUME 95 fL (80-96); MONOCYTES # (AUTO) 0.5 /CMM (0.1-1.30); MONOCYTES % (AUTO) 8.7 % (2.0-12.0); NEUTROPHILS # (AUTO) 2.8 /CMM (1.8-8.9); NEUTROPHILS % (AUTO) 50.9 % (43.0-81.0); PLATELET COUNT (AUTO) 166 /CMM (150-450); RDW COEFFICIENT OF VARIATION 14.9 (11.5-15.0); RED BLOOD CELL COUNT(AUTO) 3.42 MIL/uL (4.5-6.0); WHITE BLOOD COUNT (AUTO) 5.4 K/uL (4.3-11.0)
[2017-08-19 04:16] LABS: CALCIUM, SERUM 8.9 mg/dL (8.5-10.1); CARBON DIOXIDE 28 mmol/L (21-32); CHLORIDE 108 mmol/L (98-107); CREATININE 1.3 mg/dL (0.6-1.3); GLUCOSE 113 mg/dL (74-106); MAGNESIUM 2.1 mg/dL (1.8-2.4); POTASSIUM 3.8 mmol/L (3.5-5.1); SODIUM SERUM 145 mmol/L (136-145); UREA NITROGEN, BLOOD 19 mg/dL (7-18)
[2017-08-19 04:17] LABS: CHOLESTEROL 171 mg/dL (<200); HDL CHOLESTEROL 47 mg/dL (40-60); LDL 104 mg/dL (0-99); TRIGLYCERIDES 125 mg/dL (30-150)
--- NOTE | 2017-08-19 05:39 | NUR ---
rn notes Patient removed his monterroso catheter and LAC PIV line. He said he wanted to go to the bathroom. Scant bleeding on the tip of the penis and scant bleeding on LAC area noted. Tried to re-insert monterroso catheter but was unsuccessful because there was resistance. Inserted PIV line to right hand, procedure well tolerated. Will continue to monitor. Addendum: 08/19/17 at 0614 by DERICK ALVES RN wrong patient pls disregard note
--- NOTE | 2017-08-19 07:40 | NUR ---
ENGINE EMISSION TECHNICIAN NOTE PATIENT IN BED , ALL NEEDS ATTENDED .ALERT ORIENTED X3 , BED IN LOWEST AND LOCKED POSITION , ON TELE MONITOR SR WITH V PACING HR LT AC HL INTACT, NO S\S INFECTION NOTED , BED IN LOWEST AND LOCKED POSITION , CALL LIGHT WITHIN REACH , RESPIRATION NONLABORED,WILL CONT TO MONITOR CLOSELY , PLAN OF CARE DISUSED WITH PATINT
[2017-08-19 08:00] VITALS: BP 129/62
[2017-08-19] MEDS: CLOPIDOGREL BISULFATE 75 MG TABLET PO SCH (08:02)
[2017-08-19] MEDS: MECLIZINE HCL 25 MG TABLET PO SCH (08:03)
[2017-08-19] MEDS: CHOLECALCIFEROL 1,000 UNIT TABLET (VIT D3) PO SCH ×2 (08:04→09:15)
[2017-08-19] MEDS: BENAZEPRIL HCL 20 MG TABLET PO SCH (08:05)
[2017-08-19] MEDS: GLIMEPIRIDE 4 MG TABLET PO SCH ×2 (08:08→16:54)
[2017-08-19] MEDS ORDERED: FUROSEMIDE 20 MG TABLET PO SCH (09:00)
--- NOTE | 2017-08-19 10:13 | NUR ---
DIRECTOR EAST COAST SALES NOTE REPORTED TO DR SALVADOR THAT TROPONIN IS ELEVATED 0.06, STATED THAT DR NEWMAN DIRECTOR OF DANCE WILL SEE PATENT SOON . SPOKE WITH DR NEWMAN ,STATED THAT WILL CHECK PATIENT SOON
--- NOTE | 2017-08-19 11:45 | NUR ---
TELE R NOTE PER RADIOLOGY, WILL KEEP NPO AFTER MID NIGHT , PATIENT WILL HAVE CT ANGIO OF HEART , SPOKE WITH LUIS DIAZMETAL MIXER, WILL ARRANGE RN FOR RADIOLOGY FOR TOMORROW PROCEDURE ,CONSENT FOR CT ANGIO DONE
[2017-08-19 12:00] VITALS: BP 96/56
--- NOTE | 2017-08-19 12:43 | NUR ---
television mechanic note renal us done as ordered
[2017-08-19 16:00] VITALS: BP 101/54
--- NOTE | 2017-08-19 16:55 | NUR ---
it telecom technician note blood sugar 129 mg\ dl no coverage with insulin
--- NOTE | 2017-08-19 19:05 | NUR ---
OPERATIONAL INTELLIGENCE ANALYST OPENING NOTES REPORT RECEIVED FROM ERICA CHILDERS. PATIENT A/A/O X3, ABLE TO MAKE NEEDS KNOWN. BREATHING EVEN & UNLABORED ON O2 2L VIA NC. DENIES SOB OR DIFFICULTY BREATHING. ON TELE SINUS RHYTHM W/ HR 60 AND V-PACING WHEN HR 61-70S. DENIES ANY CHEST PAIN OR DISCOMFORT @ THIS TIME. LEFT AC IV #20 & RIGHT AC IV #18 INTACT & PATENT W/ DRESSING CDI, ON SALINE LOCK. URINAL @ BEDSIDE. SAFETY MEASURES IN PLACE, BED LOCKED IN LOWEST POSITION & CALL LIGHT WITHIN REACH. WILL CONTINUE TO MONITOR.
--- NOTE | 2017-08-19 19:28 | NUR ---
BOWL TOPPER NOTE ALL NEEDS ATTENDED, NOT IN ACUTE DISTRESS, WILL CONT TO MONITOR CLOSELY
[2017-08-19 20:00] VITALS: BP 108/71
--- NOTE | 2017-08-19 20:00 | NUR ---
RN NOTES PATIENT INSISTED ON CHECKING BS & RECEIVING INSULIN EARLIER THAN SCHEDULED. BS = 176 & 3 UNITS OF REGULAR INSULIN ADMINISTERED PER SSI. CHARGE NURSE AWARE.
[2017-08-19] MEDS: ACETAMINOPHEN 325 MG TABLET PO PRN (20:23)
[2017-08-19] MEDS: DOXAZOSIN MESYLATE (1 MG) 1 MG TABLET PO SCH (21:29)
[2017-08-19] MEDS: TAMSULOSIN 0.4 MG CAP.SR.24H PO SCH (21:30)
[2017-08-20] VITALS (14 sets, daily range): BP systolic 90–127; BP diastolic 49–95
[2017-08-20 07:09] LABS: BASOPHILS % (AUTO) 0.2 % (0.0-2.0); EOSINOPHILS # (AUTO) 0.1 /CMM (0.0-0.7); EOSINOPHILS % (AUTO) 2.3 % (0.0-6.0); HEMATOCRIT 35 % (39-51); HEMOGLOBIN 11.6 g/dL (13.5-17.5); LYMPHOCYTES # (AUTO) 1.9 /CMM (0.8-4.8); LYMPHOCYTES % (AUTO) 31.4 % (20.0-44.0); MEAN CORPUSCULAR HEMOGLOBIN 32 PG (26.0-33.0); MEAN CORPUSCULAR HGB CONC 33 g/dl (31.0-36.0); MEAN CORPUSCULAR VOLUME 96 fL (80-96); MONOCYTES # (AUTO) 0.5 /CMM (0.1-1.30); MONOCYTES % (AUTO) 8.2 % (2.0-12.0); NEUTROPHILS # (AUTO) 3.5 /CMM (1.8-8.9); NEUTROPHILS % (AUTO) 57.9 % (43.0-81.0); PLATELET COUNT (AUTO) 164 /CMM (150-450); RDW COEFFICIENT OF VARIATION 14.9 (11.5-15.0); RED BLOOD CELL COUNT(AUTO) 3.61 MIL/uL (4.5-6.0); WHITE BLOOD COUNT (AUTO) 6.1 K/uL (4.3-11.0)
--- NOTE | 2017-08-20 07:15 | NUR ---
RN NOTES RECEIVED PATIENT AOX4 , DENIES SOB AND DISCOMFORT AT THIS TIME , ST 105 ON ASSOCIATE SOFTWARE ENGINEER , IV OF AC # 20 PATENT AND INTACT SL , NPO STATUS FOR CT ANGIOGRAM WITH 3D IMAGE TODAY , ALL NEEDS ATTENDED , BED ON LOW AND LOCKED POSITION , SIDE RAILS X2 , CALL LIGHT WITHIN REACH , HOB @ 35 , WILL CONTINUE TO MONITOR
[2017-08-20 07:38] LABS: CALCIUM, SERUM 8.8 mg/dL (8.5-10.1); CARBON DIOXIDE 25 mmol/L (21-32); CHLORIDE 106 mmol/L (98-107); CREATININE 1.2 mg/dL (0.6-1.3); GLUCOSE 92 mg/dL (74-106); MAGNESIUM 1.9 mg/dL (1.8-2.4); PHOSPHORUS 4.5 mg/dL (2.5-4.9); POTASSIUM 4.3 mmol/L (3.5-5.1); SODIUM SERUM 142 mmol/L (136-145); UREA NITROGEN, BLOOD 17 mg/dL (7-18)
[2017-08-20] MEDS: BLOOD SUGAR DIAGNOSTIC 1 EACH STRIP IN SCH ×4 (08:05→21:42)
[2017-08-20] MEDS: GLIMEPIRIDE 4 MG TABLET PO SCH ×2 (08:05→17:20)
--- NOTE | 2017-08-20 08:07 | NUR ---
RN NOTES AMARLY 4MG HELD PT IS NPO , BS OF 97MG/DL
[2017-08-20] MEDS: BENAZEPRIL HCL 20 MG TABLET PO SCH (08:25)
[2017-08-20] MEDS: CHOLECALCIFEROL 1,000 UNIT TABLET (VIT D3) PO SCH (08:26)
[2017-08-20] MEDS: CLOPIDOGREL BISULFATE 75 MG TABLET PO SCH (08:26)
[2017-08-20] MEDS: MECLIZINE HCL 25 MG TABLET PO SCH (08:26)
[2017-08-20] MEDS: IV NS 0.9% 1,000 ML IV PRN ×2 (10:12→18:49)
[2017-08-20] MEDS ORDERED: IOHEXOL-350 100 ML VIAL IV ONE (10:42)
[2017-08-20] MEDS ORDERED: CT SWABBABLE VALVE TRANS SET 1 EA INFUS.SET MC ONE (10:42)
[2017-08-20] MEDS ORDERED: NITROGLYCERIN 0.4 MG/TAB BOTTLE ONE (10:42)
[2017-08-20] MEDS ORDERED: METOPROLOL TARTRATE INJ 5 MG/5 ML AMPUL ONE (10:43)
--- NOTE | 2017-08-20 11:00 | NUR ---
PT TO CTA- CONSENT SIGNED BY PT. CREATINE 1.3. PACING ON MONITOR HR 60. DENIES CP, DENIES DYSPNEA.
--- NOTE | 2017-08-20 11:03 | NUR ---
HR WITHIN DESIRED LEVEL- NO BETA MAYRA INDICATED.
--- NOTE | 2017-08-20 11:28 | NUR ---
NITROGLYCERIN 0.4 MG SL ADMINSITERED, EXPLAINED POSSIBLE SIDE EFFECT TO PT. VSS
--- NOTE | 2017-08-20 11:30 | NUR ---
PROCEDURE COMPLETED. NO SIGNIFICANT CHANGE IN CONDITION. NO MEDICAL COMPLAINTS. VSS.
--- NOTE | 2017-08-20 11:44 | NUR ---
PT STARTED TO COMPLAINT CHEST PAIN ON OUR WAY BACK TO UNIT, REPEATED STATING "HOT HOT". PT TURNED CYANOTIC. 02 VIA NRBM. PT BECAME RESPONSIVE IMMEDIATELY WITH + SPONTANEOUS RESPIRATION ,RATER & EFFORT NON LABORED.
--- NOTE | 2017-08-20 11:50 | NUR ---
TRANSFERRED CARE TO [facility].
--- NOTE | 2017-08-20 11:50 | NUR ---
RN NOTES PT NOTED WITH CHANGE IN CONDITION WHILE WHEELING THE PT BACK TO ROOM , PT BECAME CYANOTIC , UNRESPONSIVE WITH SPONTANEOUS RESPIRATIONS , PULSES PALPABLE UPON PALPATION , JEWELRY CASTING MODEL MAKER CALLED , V/S BP OF 123/67 , SR 56 ON TELE MONITOR , PLACED PT ON NON REBREATHER MASK 15LPM WITH SPO2 OF 100% , BS OF 116MG/DL , PT BECAME MORE RESPONSIVE , ABLE TO FOLLOWS COMMANDS , DENIES SOB , BUT STILL COMPLAINS OF DIZZINESS , PLACED ON MONITOR , EKG OBTAINED , DISCUSSED CHANGE OF CONDITION WITH DR NEWMAN AND DR SALVADOR , OK TO UPGRADE TO TELE , IV OF NS @ 12 5ML/HR RESTARTED ,
--- NOTE | 2017-08-20 12:40 | NUR ---
RN NOTES PT AWAKE ALERT OX4 , DENIES SOB AND DISCOMFORT AT THIS TIME , EATING HIS LUNCH WITH NO COMPLAINS OF DIZZINESS , SPO2 OF 98% VIA 2LPM NC , WILL CONTINUE TO MONITOR
--- NOTE | 2017-08-20 14:43 | NUR ---
RN NOTES RECEIVED A CALL FROM DR NEWMAN, REQUESTING FOR LEXISCAN RESULT THAT WAS DONE A WEEK A GO IN OTHER HOSPITAL [facility] , PER PT HE WAS IN [facility] LAST WEEK FAXED RELEASE OF INFORMATION SIGNED BY THE PT TO [facility] , AWAITING FOR DOCUMENTS TO BE FAXED
--- NOTE | 2017-08-20 15:33 | NUR ---
RN NOTES CALLED [facility] , SPOKE WITH JEANMARIE, NOTIFIED THE REQUEST FOR [facility]ICAL RECORDS WAS FAXED ALREADY , PER JEANMARIE SHE FAXED MEDICAL RECORDS ALREADY ,
[2017-08-20] MEDS: INSULIN REGULAR, HUMAN 100 UNIT/ML 3 ML VIAL SQ PRN ×2 (17:23→21:48)
--- NOTE | 2017-08-20 18:46 | NUR ---
RN NOTES MEDICAL RECORDS FROM [facility] , NO LEXISCAN RESULT RECEIVED, VERIFIED WITH SON ARYAN IF HIS FATHER RECENTLY HAD A LEXISCAN , PER SON NO RECENT LEXISCAN WERE DONE , NOTIFIED DR PATY MD AWARE
--- NOTE | 2017-08-20 19:24 | NUR ---
RN NOTES PATIENT STABLE AT THIS TIME , DENIES SOB AND DISCOMFORT AT THIS TIME , V PACING 61 ON PRODUCTION MANUFACTURING WORKER , IV OF R AC # 20 AND LEFT WRIST # 18 PATENT AND INTACT WITH NS @ 125ML/HR INFUSING WELL , ALL NEEDS ATTENDED , BED ON LOW AND LOCKED POSITION , SIDE RAILS X2 , CALL LIGHT WITHIN REACH , HOB @ 35 , REPORT GIVEN TO MARTÍNEZ FOR CONTINUITY OF CARE
[2017-08-20] MEDS: TAMSULOSIN 0.4 MG CAP.SR.24H PO SCH (21:43)
[2017-08-20] MEDS: ACETAMINOPHEN 325 MG TABLET PO PRN (21:43)
[2017-08-20] MEDS: DOXAZOSIN MESYLATE (1 MG) 1 MG TABLET PO SCH (21:44)
[2017-08-21] VITALS (8 sets, daily range): BP systolic 94–141; BP diastolic 48–94
[2017-08-21] MEDS: IV NS 0.9% 1,000 ML IV PRN (03:13)
[2017-08-21 06:48] LABS: BASOPHILS % (AUTO) 0.3 % (0.0-2.0); EOSINOPHILS # (AUTO) 0.1 /CMM (0.0-0.7); EOSINOPHILS % (AUTO) 1.6 % (0.0-6.0); HEMATOCRIT 32 % (39-51); HEMOGLOBIN 10.9 g/dL (13.5-17.5); LYMPHOCYTES # (AUTO) 1.2 /CMM (0.8-4.8); LYMPHOCYTES % (AUTO) 19.1 % (20.0-44.0); MEAN CORPUSCULAR HEMOGLOBIN 33 PG (26.0-33.0); MEAN CORPUSCULAR HGB CONC 34 g/dl (31.0-36.0); MEAN CORPUSCULAR VOLUME 97 fL (80-96); MONOCYTES # (AUTO) 0.5 /CMM (0.1-1.30); MONOCYTES % (AUTO) 7.3 % (2.0-12.0); NEUTROPHILS # (AUTO) 4.7 /CMM (1.8-8.9); NEUTROPHILS % (AUTO) 71.7 % (43.0-81.0); PLATELET COUNT (AUTO) 133 /CMM (150-450); RDW COEFFICIENT OF VARIATION 15.3 (11.5-15.0); RED BLOOD CELL COUNT(AUTO) 3.33 MIL/uL (4.5-6.0); WHITE BLOOD COUNT (AUTO) 6.5 K/uL (4.3-11.0)
[2017-08-21 07:21] LABS: CALCIUM, SERUM 7.9 mg/dL (8.5-10.1); CARBON DIOXIDE 24 mmol/L (21-32); CHLORIDE 109 mmol/L (98-107); CREATININE 1.2 mg/dL (0.6-1.3); GLUCOSE 155 mg/dL (74-106); MAGNESIUM 1.8 mg/dL (1.8-2.4); PHOSPHORUS 3.8 mg/dL (2.5-4.9); POTASSIUM 4.2 mmol/L (3.5-5.1); SODIUM SERUM 143 mmol/L (136-145); UREA NITROGEN, BLOOD 18 mg/dL (7-18)
--- NOTE | 2017-08-21 07:51 | NUR ---
WIRE STRETCHER NOTE PATIENT IN BED ,HAVING BREAKFAST , ALL NEEDS ATTENDED ,ON 2L NC NO SOB NOTED , ON TELE MONITOR SR 60 RT AC AND LT AC HL INTACT , NO S\S INFECTION NOTED , ON IVF ORDERED, PLAN OF CARE DISCUSSED WITH PATIENT , BED IN LOWEST AND LOCKED POSITION , RESPIRATION EVEN UNLABORED , WILL CONT TO MONITOR CLOSELY, CALL LIGHT WITHIN REACH
--- NOTE | 2017-08-21 08:00 | NUR ---
SPUDDER NOTE BLOOD SUGAR 132 MG\ DL, REFUSED T HAVE COVERAGE WITH INSULIN 2 INIT ,STATED I WILL TAKE AMARYL 4 MG , WILL F\U
[2017-08-21] MEDS: CLOPIDOGREL BISULFATE 75 MG TABLET PO SCH (08:07)
[2017-08-21] MEDS: GLIMEPIRIDE 4 MG TABLET PO SCH ×2 (08:08→17:00)
[2017-08-21] MEDS: MECLIZINE HCL 25 MG TABLET PO SCH (08:08)
[2017-08-21] MEDS: CHOLECALCIFEROL 1,000 UNIT TABLET (VIT D3) PO SCH (08:08)
[2017-08-21] MEDS: BENAZEPRIL HCL 20 MG TABLET PO SCH (08:09)
[2017-08-21] MEDS: BLOOD SUGAR DIAGNOSTIC 1 EACH STRIP IN SCH ×4 (08:09→22:01)
--- NOTE | 2017-08-21 10:03 | NUR ---
RESEARCH EPIDEMIOLOGIST NOTE SEEN BY DR MORROW ORDERED TO D\C IVF , ALSO SAID THAT PATIENT WILL HAVE CARDIAC CATH AT [facility], WILL F\U WITH SERVICES MANAGER ,
[2017-08-21] MEDS: INSULIN REGULAR, HUMAN 100 UNIT/ML 3 ML VIAL SQ PRN (11:24)
[2017-08-21] MEDS: ACETAMINOPHEN 325 MG TABLET PO PRN (11:47)
--- NOTE | 2017-08-21 12:00 | NUR ---
HYDROELECTRIC PLANT ELECTRICIAN NOTE C\O HEADACHE TYLENOL PO GIVEN WILL F\U
[2017-08-21] MEDS: HYDROCODONE/APAP 5/325MG 1 EACH TABLET PO PRN (13:38)
--- NOTE | 2017-08-21 14:56 | NUR ---
TOBACCO DIPPER NOTE CALLED TO DR MOSES LEFT A MESSAGE TO CALL SON ARYAN SPOKE WITH CHICKEN VACCINATOR PHONE NUMBER GIVEN
--- NOTE | 2017-08-21 14:59 | NUR ---
TEST DESKMAN NOTE STILL C\O HEADACHE ,NORCO PO GIVEN, BP 104/54 BLOOD SUGAR 196 MG\DL, WILL MONITOR CLOSELY
[2017-08-21] MEDS ORDERED: EPINEPHRINE (1:10,000) SYRINGE 1 MG/10 ML DISP.SYRIN IVP ONE (15:17)
--- NOTE | 2017-08-21 16:52 | NUR ---
RAILROAD ACCOUNTANT NOTE PER CHRISTIAN SOUND EQUIPMENT MECHANIC, PATIENT WILL BE TRANSFER TOMORROW AT [facility] FOR CARDIAC CATH , AMBULANCE WILL ARRIVED AT 0930 AN AM TOMORROW 08/22/17 AND REPORT NEED TO BE GIVEN TOMORROW IN AM [phone]
--- NOTE | 2017-08-21 18:36 | NUR ---
VOLUNTEER SERVICES SUPERVISOR NOTE WILL KEEP NPO AFTER MIDNIGHT , AND REPORT WILL BE GIVE TO [facility] IN AM 0830 ALSO SPOKE WITH SON ARYAN, NOTIFIED THAT PATIENT WILL BE TRANSFERRED TO [facility] FOR CARDIAC CATH BY AMBULANCE ,SON ALSO SPOKE WITH DR YAO ABOUT HIS FATHER CONDITION
--- NOTE | 2017-08-21 19:35 | NUR ---
RN OPENING NOTES RECEIVED REPORT FROM DAYSHIFT RN. FOUND Pt AWAKE, RESTING IN BED. NO S/S OF ACUTE DISTRESS OR SOB NOTED. Pt IS A/OX4, VERBAL, ABLE TO MAKE NEEDS KNOWN. IV ACCESS ON RAC #20G, SL & LFA#18G, SL. BEING SENT TO [facility] TOMORROW MORNING FOR CARDIAC CATH PROCEDURE. WILL BE NPO STARTING MN TONIGHT. Pt IS AWARE. SAFETY MEASURES IN PLACE. BED ALARM ON. BED LOW, LOCKED, HOB ELEVATED, SIDE RAILS UP, CALL LIGHT AND BEDSIDE TABLE WITHIN REACH. WILL CONTINUE TO MONITOR Pt THROUGHOUT THE NIGHT FOR SAFETY.
[2017-08-21] MEDS: TAMSULOSIN 0.4 MG CAP.SR.24H PO SCH (22:00)
--- NOTE | 2017-08-21 22:00 | NUR ---
RN NOTES HS ACCUCHECK BG 121. NO INSULIN NEEDED AT THIS TIME.
[2017-08-21] MEDS: DOXAZOSIN MESYLATE (1 MG) 1 MG TABLET PO SCH (22:01)
[2017-08-22] VITALS (7 sets, daily range): BP systolic 100–142; BP diastolic 61–76
--- NOTE | 2017-08-22 06:30 | NUR ---
RN NOTES AC ACCUCHECK BG 68. NO INSULIN COVERAGE NEEDED AT THIS TIME. WILL SEE IF OTHER INTERVENTIONS WILL BE NEEDED SINCE Pt IS NPO AND CANNOT DRINK OJ.
[2017-08-22] MEDS: BLOOD SUGAR DIAGNOSTIC 1 EACH STRIP IN SCH ×4 (06:31→22:03)
--- NOTE | 2017-08-22 06:35 | NUR ---
RN NOTES PATIENT'S BLOOD SUGAR 68, CURRENTLY NPO FOR PROCEDURE LATER TODAY, NOT ON ANY FLUIDS WITH DEXTROSE. ASYMPTOMATIC AT THIS TIME. TWIN TREAD BUILDER MADE AWARE WITH ORDER FOR 1/2 AMP OF D50 X1 NOW, THEN START ON D5 LR @ 50ML/HR. PRIMARY NURSE SONAL MADE AWARE. WILL ADMINISTER AND MONITOR CLOSELY
--- NOTE | 2017-08-22 06:40 | NUR ---
RN CLOSING NOTES INFORMED WATER METER INSTALLER TWIN OF Pt's BG OF 68. PER ORDER, GAVE Pt 25ML OF D50% & STARTED ON IVF D5LR @50ML/HR. Pt IS ASYMPTOMATIC OF HYPOGLYCEMIA. NO OTHER SIGNIFICANT CHANGES NOTED DURING THE SHIFT. Pt REMAINS IN STABLE CONDITION. NO S/S OF ACUTE DISTRESS OR SOB NOTED. ALL NEEDS MET AND ATTENDED TO. SAFETY MEASURES IN PLACE. WAITING FOR SCHEDULED MORNING SHOW PRODUCER TO BE TRANSFERRED TO [facility]. WILL ENDORSE TO DAYSHIFT RN FOR Pt's ALONSO.
[2017-08-22] MEDS ORDERED: DEXTROSE 50%-WATER 50 ML DISP.SYRIN IVP ONE (07:00)
[2017-08-22] MEDS ORDERED: IV D5 LR 1,000 ML IV PRN (07:00)
--- NOTE | 2017-08-22 07:20 | NUR ---
RN INITIAL NOTES: PATIENT RESTING IN BED. NO NONLABORED BREATHING ON 2 L NASAL CANNULA. PATIENT DENIES CHEST PAIN AT THE MOMENT. PATIENT ON TELEMETRY MONITORING WITH SINUS RHYTHM NOTED. IV SITES PATENT AND INTACT. BED IN LOWEST POSITION. CALL LIGHT WITHIN REACH. WILL CONTINUE TO MONITOR
[2017-08-22] MEDS: CHOLECALCIFEROL 1,000 UNIT TABLET (VIT D3) PO SCH (09:00)
[2017-08-22] MEDS: CLOPIDOGREL BISULFATE 75 MG TABLET PO SCH (09:00)
[2017-08-22] MEDS: BENAZEPRIL HCL 20 MG TABLET PO SCH (09:00)
[2017-08-22] MEDS: GLIMEPIRIDE 4 MG TABLET PO SCH ×2 (09:00→18:45)
[2017-08-22] MEDS: MECLIZINE HCL 25 MG TABLET PO SCH (09:00)
--- NOTE | 2017-08-22 09:13 | NUR ---
RN NOTES: PATIENT REFUSED TO HAVE BLOOD DRAWN FOR LABS. OFFERED MULTIPLE TIMES BY LAB STAFF AND MYSLEF. BENEFITS AND RISKS EXPLAINED. PATIENT STILL REFUSED.
--- NOTE | 2017-08-22 10:32 | NUR ---
RN NOTES: PATIENT LEFT TO [facility] TO PRODUCT STRATEGY DIRECTOR PER MD ORDERS VIA AMBULANCE. NONLABORED BREATHING NOTED. PATIENT DENIES CHEST PAIN. VS WITHIN NORMAL RANGE. IV SITES PATENT AND INTACT. A FOLDER GIVEN TO PARAMEDICS WITH ALL OF PATIENT'S HISTORY AND DIAGNOSTIC TESTS. VALUABLES GIVEN TO PATIENT INCLUDING WATCH. REPORT WAS GIVEN TO MISA AT [facility]
--- NOTE | 2017-08-22 19:45 | NUR ---
TELE/RN NOTES RECEIVED PT IN STABLE CONDITION. A&OX4. O2 2L VIA LISA. Darryl SEVILLA CDI. PATIENT MADE AWARE OF PLAN OF CARE AND VERBALIZED UNDERSTANDING. BED AT LOWEST POSITION AND LOCKED, HOB 20-30 DEGREES, SRX3 UP, SIDE TABLE AND CALL BOWER WITHIN REACH. WILL CONTINUE TO MONITOR.
--- NOTE | 2017-08-22 19:47 | NUR ---
RN CLOSING NOTES: 1600- PATIENT RETURNED FROM [facility] [address] [facility]. RECEIVED REPORT FROM MINERVA WHO INFORMED ME THAT PATIENT RECEIVED BENADRYL, SOLUMEDROL DURING PROCEDURE. PATIENT WAS NOT GIVEN ANY MEDICATIONS IN POST OP. PER MINERVA, PATIENT WILL RESUME PREVIOUS DIET, BE ON REST TILL 1800. PATIENT ARRIVED TO UNIT STABLE. VS WITHIN NORMAL RANGE. NONLABORED BREATHING ON 2 L NASAL CANNULA. IV SITES PATENT AND INTACT. DRESSING ON RIGHT GROIN INTACT. NO SIGNS OF BLEEDING NOTED. PATIENT INSTRUCTED TO KEEP LEG STRAIGHT. PATIENT DENIES PAIN AND DENIES CHEST PAIN. BLOOD SUGAR 191 UPON ASSESSMENT. PATIENT REFUSING TO EAT. PATIENT REFUSED MEDICATIONS. BENEFITS AND RISKS EXPLAINED. PATIENT FINALLY AGREED TO TAKE HIS AMARYL. BLOOD SUGAR CHECKED. HOWEVER, PHARMACY HAS REMOVED HIS INSULIN BOTTLE. CONTACTED PHARMACY. THEY WILL BE REPLACING THE BOTTLE. PATIENT ATE 100% OF DINNER. PATIENT RESTING IN BED. NO NONLABORED BREATHING ON 2 L NASAL CANNULA. PATIENT DENIES CHEST PAIN AT THE MOMENT. PATIENT ON TELEMETRY MONITORING WITH SINUS RHYTHM NOTED. IV SITES PATENT AND INTACT. BED IN LOWEST POSITION. D5 1000 ML FLUIDS DISCONTINUED SINCE PATIENT NO LONGER NPO PER ORDERS. CALL LIGHT WITHIN REACH. ENDORSED TO NEXT SHIFT. BED SCALE WEIGHT ASSESSED. HOWEVER, IT SEEMS INACCURATE. ENDORSED TO NEXT SHIFT TO REASSESS.
[2017-08-22] MEDS: ACETAMINOPHEN 325 MG TABLET PO PRN (20:06)
[2017-08-22] MEDS: INSULIN REGULAR, HUMAN 100 UNIT/ML 3 ML VIAL SQ PRN (22:05)
[2017-08-22] MEDS: TAMSULOSIN 0.4 MG CAP.SR.24H PO SCH (22:16)
[2017-08-22] MEDS: DOXAZOSIN MESYLATE (1 MG) 1 MG TABLET PO SCH (22:17)
--- NOTE | 2017-08-22 22:19 | NUR ---
TELE/RN NOTES PT C/O OF LE >10/10. B/P 142/71, HR 63. BS 376. 10 UNITS INSULIN, CARDURA AND FLOMAX GIVEN. REFUSED NORCO AT THIS TIME. WATCHING T.V. NO DISTRESS NOTED. WILL CONTINUE TO MONITOR.
[2017-08-23] VITALS (7 sets, daily range): BP systolic 91–150; BP diastolic 50–72
[2017-08-23] MEDS ORDERED: BENAZEPRIL HCL 5 MG TABLET PO ONE (00:30)
[2017-08-23] MEDS ORDERED: CLOPIDOGREL BISULFATE 75 MG TABLET PO ONE (00:30)
[2017-08-23] MEDS: HYDROCODONE/APAP 5/325MG 1 EACH TABLET PO PRN (01:22)
--- NOTE | 2017-08-23 06:35 | NUR ---
TELE/RN NOTES AA&OX4. NO SOB ON O2 2L VIA NC. PATIENT STATES HE FINALLY WAS ABLE TO SLEEP. SANGEETA SAINZ MADE AWARE PATIENT REQUESTING TO SEE HER AND ALSO WOULD LIKE TO TALK TO TRIPE FINISHER TODAY. PATIENT VERY CONCERNED ABOUT HIS B/P AND BLOOD SUGAR. NO OTHER CONCERNS OR COMPLAINS MADE. ALL NEEDS MET. BED AT LOWEST POSITION AND LOCKED, SRX 3 UP, SIDE TABLE AND CALL BOWER WITHIN REACH. WILL ENDORSE TO AM SHIFT FOR CONTINUITY OF CARE.
--- NOTE | 2017-08-23 07:05 | NUR ---
RN NOTES: RECEIVED PT ON BED, A/Ox4, ON 2L O2 N/C , NO SOB NOTED, RESPIRATION EVEN AND UNLABORED, PATIENT RESTING IN BED.PATIENT DENIES CHEST PAIN AT THE MOMENT. ON TELEMETRY SR V PACING , R WRIST AND R FA IV G 18 , SITES CDI, SR UP x3, BED LOCKED AND IN LOWEST POSITION. CALL LIGHT WITHIN EASY REACH. WILL CONTINUE TO MONITOR PT CLSOELY
[2017-08-23] MEDS: INSULIN REGULAR, HUMAN 100 UNIT/ML 3 ML VIAL SQ PRN ×2 (07:45→11:30)
[2017-08-23] MEDS: BLOOD SUGAR DIAGNOSTIC 1 EACH STRIP IN SCH ×3 (07:51→16:50)
[2017-08-23] MEDS: CLOPIDOGREL BISULFATE 75 MG TABLET PO SCH (08:46)
[2017-08-23] MEDS: GLIMEPIRIDE 4 MG TABLET PO SCH ×2 (08:46→17:18)
[2017-08-23] MEDS: MECLIZINE HCL 25 MG TABLET PO SCH (08:46)
[2017-08-23] MEDS: CHOLECALCIFEROL 1,000 UNIT TABLET (VIT D3) PO SCH (08:46)
[2017-08-23] MEDS: BENAZEPRIL HCL 20 MG TABLET PO SCH (08:46)
--- NOTE | 2017-08-23 09:16 | NUR ---
RN NOTES PT REFUSED MORNING BLOOD DRAWING , EXPLAINED TO PT HOW IMPORTANT IT IS TO GET BLOOD WORK DONE AND FOLLOW PLAN OF CARE , PT STILL REFUSED .
[2017-08-23] MEDS ORDERED: METOPROLOL TARTRATE 25 MG TABLET PO SCH (09:30)
[2017-08-23 10:03] LABS: BASOPHILS % (AUTO) 0.2 % (0.0-2.0); HEMATOCRIT 32 % (39-51); HEMOGLOBIN 10.6 g/dL (13.5-17.5); LYMPHOCYTES % (AUTO) 11.5 % (20.0-44.0); MEAN CORPUSCULAR HEMOGLOBIN 32 PG (26.0-33.0); MEAN CORPUSCULAR HGB CONC 33 g/dl (31.0-36.0); MEAN CORPUSCULAR VOLUME 95 fL (80-96); MONOCYTES # (AUTO) 0.7 /CMM (0.1-1.30); MONOCYTES % (AUTO) 8.4 % (2.0-12.0); NEUTROPHILS # (AUTO) 6.6 /CMM (1.8-8.9); NEUTROPHILS % (AUTO) 79.9 % (43.0-81.0); PLATELET COUNT (AUTO) 154 /CMM (150-450); RDW COEFFICIENT OF VARIATION 14.9 (11.5-15.0); RED BLOOD CELL COUNT(AUTO) 3.34 MIL/uL (4.5-6.0); WHITE BLOOD COUNT (AUTO) 8.3 K/uL (4.3-11.0)
[2017-08-23 10:22] LABS: CALCIUM, SERUM 8.7 mg/dL (8.5-10.1); CARBON DIOXIDE 26 mmol/L (21-32); CHLORIDE 100 mmol/L (98-107); CREATININE 1.5 mg/dL (0.6-1.3); GLUCOSE 277 mg/dL (74-106); POTASSIUM 4.4 mmol/L (3.5-5.1); SODIUM SERUM 134 mmol/L (136-145); UREA NITROGEN, BLOOD 29 mg/dL (7-18)
--- NOTE | 2017-08-23 10:30 | NUR ---
RN NOTES WILLIAM YARBROUGH NOTIFIED REGARDING BMP RESULTS, NO NEW ORDER GIVEN
[2017-08-23] MEDS ORDERED: ATOR40TA PO (11:50)
[2017-08-23] MEDS ORDERED: METO25TA20 PO (11:50)
[2017-08-23] MEDS ORDERED: IV NS 0.9% 500 ML IV ONE (12:00)
--- NOTE | 2017-08-23 14:00 | NUR ---
RN NOTES PT STATED WANTS TO WALK AROUND AND MAKE SURE HE IS OK BEFORE HE LIVES THE HOSPITAL .
--- NOTE | 2017-08-23 15:07 | NUR ---
RN NOTES DISCHARGE INSTRUCTION GIVEN , PT VERBALIZES UNDERSTANDING . NO DISTRESS NOTED
--- NOTE | 2017-08-23 15:09 | NUR ---
RN NOTES PT UP AND WALKING AROUND NURSING STATION, STABLE , NO DISTRESS NOTED.
--- NOTE | 2017-08-23 16:51 | NUR ---
RN NOTES FAMILY WILL BE COME IN AFTER 6PM TO ASSISTANT GOLF COACH THE PT PER CM CHRISTIAN.
--- NOTE | 2017-08-23 18:46 | NUR ---
RN NOTES PT DISCHARGED AND LEFT THE FLOOR TO MAIN ENTRANCE ACCOMPANIED BY STAFF MEMBERS AND SON IN STABLE CONDITION , NO SKIN ISSUE NOTED, PT STATED WILL MAKE OWN APPOINTMENT WITH HIS RENAL MEDICINE PHYSICIAN AND PMD GZ=115/ 68 , HR 64 AT THIS TIME.
[2017-08-23] MEDS ORDERED: ATORVASTATIN 40 MG TABLET PO SCH (22:00)
== END 2017-08-23 18:57 | disposition home or self-care (01) | DRG 281 ==
LOC: ER 19:48 → TELE1 21:44 → MEDSG1 08-20 09:14 → TELE1 08-20 11:49 → UNDODISIN 08-22 10:34
PROVIDERS: ADMIT Family Medicine; ATTEND Family Medicine
PROC: B213YZZ Fluoroscopy of Multiple Coronary Artery Bypass Grafts using Other Contrast (ICD-10-PCS; principal; 2017-08-22)
PROC: 4A023N7 Measurement of Cardiac Sampling and Pressure, Left Heart, Percutaneous Approach (ICD-10-PCS; 2017-08-22)
DX: I21.A1 Myocardial infarction type 2 (principal); I13.0 Hypertensive heart and chronic kidney disease with heart failure and stage 1 through stage 4 chronic kidney disease, or unspecified chronic kidney disease; E11.22 Type 2 diabetes mellitus with diabetic chronic kidney disease; I50.32 Chronic diastolic (congestive) heart failure; D63.8 Anemia in other chronic diseases classified elsewhere; E78.5 Hyperlipidemia, unspecified; K21.9 Gastro-esophageal reflux disease without esophagitis; N40.0 Benign prostatic hyperplasia without lower urinary tract symptoms; N18.9 Chronic kidney disease, unspecified; I25.118 Atherosclerotic heart disease of native coronary artery with other forms of angina pectoris; Z79.84 Long term (current) use of oral hypoglycemic drugs; Z95.1 Presence of aortocoronary bypass graft; R55 Syncope and collapse; Z95.0 Presence of cardiac pacemaker; R79.89 Other specified abnormal findings of blood chemistry; I49.9 Cardiac arrhythmia, unspecified; H53.2 Diplopia
CPT/HCPCS: 36415; 70450-TC; 71010-TC; 75574; 80048-TC; 80061-TC; 80076-TC; 82962-TC; 83735-TC; 84100-TC; 84484-TC; 85025-TC; 85730-TC; 87081-TC; A4606; A6402; J0171; J1815; J3490; J7030; J7040; J8597; Q9967; Z7610

== ENCOUNTER 2017-09-09 21:38 | Inpatient (IN) | payer MEDICARE, MEDICAID ==
[~2017-09-09] VITALS: Ht 167.6 cm; Wt 68.9 kg
[~2017-09-09 21:38] MED LIST changes: +ATOR40TA PO; +METO25TA20 PO
--- NOTE | 2017-09-09 21:40 | NUR ---
PT VIVIAN#39 FROM HOME, PT C/O FEELING ANXIOUS, NAD NOTED, VSS, RESP EVEN AND UNLABORED, PT PUT ON HOSPITAL GOWN, AND MONITOR, WAITING FOR MD DE GUZMAN
[2017-09-09 22:41] LABS: BASOPHILS % (AUTO) 0.4 % (0.0-2.0); EOSINOPHILS # (AUTO) 0.1 /CMM (0.0-0.7); EOSINOPHILS % (AUTO) 1.4 % (0.0-6.0); HEMATOCRIT 35 % (39-51); HEMOGLOBIN 11.4 g/dL (13.5-17.5); LYMPHOCYTES # (AUTO) 1.7 /CMM (0.8-4.8); LYMPHOCYTES % (AUTO) 29.2 % (20.0-44.0); MEAN CORPUSCULAR HEMOGLOBIN 31 PG (26.0-33.0); MEAN CORPUSCULAR HGB CONC 33 g/dl (31.0-36.0); MEAN CORPUSCULAR VOLUME 96 fL (80-96); MONOCYTES # (AUTO) 0.5 /CMM (0.1-1.30); MONOCYTES % (AUTO) 8.6 % (2.0-12.0); NEUTROPHILS # (AUTO) 3.5 /CMM (1.8-8.9); NEUTROPHILS % (AUTO) 60.4 % (43.0-81.0); PLATELET COUNT (AUTO) 148 /CMM (150-450); RDW COEFFICIENT OF VARIATION 14.9 (11.5-15.0); RED BLOOD CELL COUNT(AUTO) 3.64 MIL/uL (4.5-6.0); WHITE BLOOD COUNT (AUTO) 5.9 K/uL (4.3-11.0)
--- NOTE | 2017-09-09 22:50 | NUR ---
PT CAME BACK FROM [facility]
[2017-09-09 22:53] LABS: CALCIUM, SERUM 8.9 mg/dL (8.5-10.1); CARBON DIOXIDE 31 mmol/L (21-32); CHLORIDE 100 mmol/L (98-107); CREATININE 1.6 mg/dL (0.6-1.3); GLUCOSE 223 mg/dL (74-106); POTASSIUM 4.4 mmol/L (3.5-5.1); SODIUM SERUM 136 mmol/L (136-145); UREA NITROGEN, BLOOD 25 mg/dL (7-18)
[2017-09-09 22:55] LABS: INR 0.99 (0.87-1.13); PROTHROMBIN TIME 10.3 SECS (9.5-12.7)
[2017-09-09 23:01] LABS: TROPONIN I 0.085 ng/mL (0.00-0.056)
--- NOTE | 2017-09-09 23:08 | NUR ---
Patient is resting comfortably in bed with eyes closed. Easily aroused. VSS
[2017-09-09] MEDS ORDERED: CLOPIDOGREL BISULFATE 75 MG TABLET ONE (23:25)
[2017-09-09] MEDS ORDERED: CLOPIDOGREL BISULFATE 75 MG TABLET PO ONE (23:30)
--- NOTE | 2017-09-09 23:43 | NUR ---
PAGED DR SALVADOR FOR PANEL ADMISSION
[2017-09-10] MEDS ORDERED: LORAZEPAM INJ 2 MG/ML VIAL ONE (00:14)
[2017-09-10] MEDS ORDERED: LORAZEPAM INJ 2 MG/ML VIAL IV ONE (00:30)
--- NOTE | 2017-09-10 00:41 | NUR ---
REPORT GIVEN TO SCHUYLER CHILDERS FOR CONTINUATION OF CARE.
[2017-09-10 00:45] VITALS: BP 133/79
--- NOTE | 2017-09-10 00:45 | NUR ---
RN NOTES RECEIVED PATIENT FROM ER FOR CHEST PAIN. PATIENT AO X 3, ABLE TO MAKE NEEDS KNOWN. NO ACUTE DISTRESS NOTED. DENIES ANY PAIN AT THIS TIME. TELE READING V PACING HR 60. SKIN INTACT. RIGHT AC GAUGE 20 IV SITE PATENT, INTACT; FLUSHED. NO SYMPTOMS OF HYPER/HYPERGLYCEMIA. ON LOW BED WITH BILATERAL UPPER SIDE RAILS UP. CALL LIGHT WITHIN EASY REACH. WAITING FOR ADMISSION ORDERS. WILL CONTINUE TO MONITOR.
[2017-09-10 03:01] VITALS: BP 133/79
[2017-09-10] MEDS ORDERED: DEXTROSE 50%-WATER 50 ML DISP.SYRIN IV PRN (03:30)
[2017-09-10] MEDS ORDERED: NITROGLYCERIN 0.4 MG/TAB BOTTLE SL PRN (03:30)
[2017-09-10] MEDS ORDERED: DOCUSATE SODIUM 100 MG CAPSULE PO PRN (03:30)
[2017-09-10] MEDS ORDERED: MORPHINE SULFATE INJ 2 MG/ML DISP.SYRIN IV PRN ×2 (03:30)
[2017-09-10] MEDS ORDERED: LORAZEPAM 1 MG TABLET ONE (04:37)
[2017-09-10] MEDS: LORAZEPAM 1 MG TABLET PO PRN (04:45)
--- NOTE | 2017-09-10 04:45 | NUR ---
RN NOTES PATIENT WAS RESTLESS, ANXIOUS. NONPHARMACOLOGICAL INTERVENTIONS INEFFECTIVE. ATIVAN GIVEN ORDERED. WILL CONTINUE TO MONITOR.
--- NOTE | 2017-09-10 06:08 | NUR ---
RN NOTES PATIENT ASLEEP, EASILY AROUSABLE. RESPIRATIONS EVEN. NO SIGNS OF PAIN NOTED. NEEDS ATTENDED. SAFETY PRECAUTIONS AND COMFORT MEASURES IN PLACE. WILL GIVE REPORT TO DAY SHIFT FOR CONTINUITY OF CARE.
[2017-09-10 06:28] VITALS: BP 120/71
[2017-09-10] MEDS: BLOOD SUGAR DIAGNOSTIC 1 EACH STRIP IN SCH ×4 (06:31→21:28)
--- NOTE | 2017-09-10 07:35 | NUR ---
RN NOTES RECEIVED PT IN BED RESTING COMFORTABLY, EASILY AROUSABLE DURING CARE, ALERT ORIENTED, VERBALLY RESPONSIVE, ABLE TO MAKE NEEDS KNOWN. RESPIRATIONS EVEN AND LABORED, IN NO APPARENT PAIN OR DISCOMFORT AT THIS TIME. RAC IV SITE PATENT AND INTACT, NO REDNESS OR INFILTRATION NOTED.NPO AT THIS TIME FOR POSSIBLE STRESS TEST. KEPT CLEAN DRY AND COMFORTABLE, CALL LIGHT WITHIN EASY REACH, SAFETY MEASURES IN PLACE, WILL CONTINUE TO MONITOR
[2017-09-10 07:54] LABS: IRON, SERUM 78 ug/dl (50-175); TOTAL IRON BINDING CAPACITY 297 ug/dl (250-450)
[2017-09-10 08:00] VITALS: BP 104/60
[2017-09-10] MEDS ORDERED: MORPHINE SULFATE INJ 10 MG/ML DISP.SYRIN IV PRN ×2 (08:30)
[2017-09-10] MEDS ORDERED: FUROSEMIDE 20 MG/2 ML VIAL IV ONE (08:30)
[2017-09-10] MEDS: MECLIZINE HCL 25 MG TABLET PO SCH (09:02)
[2017-09-10] MEDS: BENAZEPRIL HCL 20 MG TABLET PO SCH (09:03)
[2017-09-10] MEDS: CHOLECALCIFEROL 1,000 UNIT TABLET (VIT D3) PO SCH (09:04)
[2017-09-10] MEDS: CLOPIDOGREL BISULFATE 75 MG TABLET PO SCH (09:04)
[2017-09-10] MEDS: GLIMEPIRIDE 4 MG TABLET PO SCH ×2 (09:05→17:28)
[2017-09-10] MEDS: METOPROLOL TARTRATE 25 MG TABLET PO SCH ×2 (09:51→21:00)
[2017-09-10] MEDS: INSULIN REGULAR, HUMAN 100 UNIT/ML 3 ML VIAL SQ PRN ×3 (12:35→21:34)
[2017-09-10 16:00] VITALS: BP 116/64
--- NOTE | 2017-09-10 18:56 | NUR ---
RN NOTES PT IN BED RESTING COMFORTABLY, EASILY AROUSABLE DURING CARE, ALERT ORIENTED, VERBALLY RESPONSIVE, ABLE TO MAKE NEEDS KNOWN. RESPIRATIONS EVEN AND LABORED, IN NO APPARENT PAIN OR DISCOMFORT AT THIS TIME. RAC IV SITE PATENT AND INTACT, NO REDNESS OR INFILTRATION NOTED.KEPT CLEAN DRY AND COMFORTABLE, CALL LIGHT WITHIN EASY REACH, SAFETY MEASURES IN PLACE, WILL CONTINUE TO MONITOR AND ENDORSE TO NEXT SHIFT FOR CONTINUITY OF CARE
[2017-09-10 20:00] VITALS: BP 93/52
[2017-09-10] MEDS: TAMSULOSIN 0.4 MG CAP.SR.24H PO SCH (21:28)
[2017-09-10] MEDS: ATORVASTATIN 40 MG TABLET PO SCH (21:28)
--- NOTE | 2017-09-11 01:30 | NUR ---
MS RN NOTE PATIENT STATED THAT HIS BLOOD SUGAR FEELS LOW. ACCUCHECK PERFORMED. BLOOD SUGAR 57. PATIENT IS REFUSING DEXTROSE. EXPLAINED BENEFITS. CONTINUED TO REFUSE. ALSO REFUSED ORANGE JUICE. STATES HE JUST WANTS CRACKERS. GAVE PATIENT CRACKERS. WILL RE-CHECK BLOOD SUGAR SHORTLY.
--- NOTE | 2017-09-11 02:10 | NUR ---
MS RN NOTE BLOOD SUGAR 130 AT THIS TIME. PATIENT STABLE. WILL CONTINUE TO MONITOR.
[2017-09-11] MEDS: BLOOD SUGAR DIAGNOSTIC 1 EACH STRIP IN SCH ×4 (06:39→22:30)
[2017-09-11] MEDS: INSULIN REGULAR, HUMAN 100 UNIT/ML 3 ML VIAL SQ PRN ×3 (06:44→17:37)
[2017-09-11 06:56] LABS: TROPONIN I 0.073 ng/mL (0.00-0.056)
[2017-09-11 06:57] LABS: BASOPHILS % (AUTO) 0.3 % (0.0-2.0); EOSINOPHILS # (AUTO) 0.1 /CMM (0.0-0.7); EOSINOPHILS % (AUTO) 0.9 % (0.0-6.0); HEMATOCRIT 32 % (39-51); LYMPHOCYTES # (AUTO) 1.5 /CMM (0.8-4.8); LYMPHOCYTES % (AUTO) 19.7 % (20.0-44.0); MEAN CORPUSCULAR HEMOGLOBIN 33 PG (26.0-33.0); MEAN CORPUSCULAR HGB CONC 34 g/dl (31.0-36.0); MEAN CORPUSCULAR VOLUME 96 fL (80-96); MONOCYTES # (AUTO) 0.6 /CMM (0.1-1.30); MONOCYTES % (AUTO) 8.3 % (2.0-12.0); NEUTROPHILS # (AUTO) 5.3 /CMM (1.8-8.9); NEUTROPHILS % (AUTO) 70.8 % (43.0-81.0); PLATELET COUNT (AUTO) 140 /CMM (150-450); RDW COEFFICIENT OF VARIATION 14.5 (11.5-15.0); RED BLOOD CELL COUNT(AUTO) 3.38 MIL/uL (4.5-6.0); WHITE BLOOD COUNT (AUTO) 7.5 K/uL (4.3-11.0)
[2017-09-11 06:58] LABS: AMYLASE 52 U/L (25-115); LIPASE 293 U/L (73-393)
[2017-09-11 06:59] LABS: INR 1.03 (0.87-1.13); PROTHROMBIN TIME 10.7 SECS (9.5-12.7)
[2017-09-11 07:01] LABS: CHOLESTEROL 128 mg/dL (<200); HDL CHOLESTEROL 48 mg/dL (40-60); LDL 72 mg/dL (0-99); TRIGLYCERIDES 58 mg/dL (30-150)
[2017-09-11 07:03] LABS: ALANINE AMINOTRANSFERASE 32 U/L (12-78); ALBUMIN 3.2 g/dL (3.4-5.0); ALKALINE PHOSPHATASE 37 U/L (46-116); ASPARTATE AMINOTRANSFERASE 17 U/L (15-37); BILIRUBIN,TOTAL 1.4 mg/dL (0.2-1.0); CALCIUM, SERUM 8.6 mg/dL (8.5-10.1); CARBON DIOXIDE 29 mmol/L (21-32); CHLORIDE 101 mmol/L (98-107); CREATININE 1.5 mg/dL (0.6-1.3); GLUCOSE 167 mg/dL (74-106); MAGNESIUM 1.9 mg/dL (1.8-2.4); PHOSPHORUS 3.7 mg/dL (2.5-4.9); POTASSIUM 3.6 mmol/L (3.5-5.1); SODIUM SERUM 137 mmol/L (136-145); TOTAL PROTEIN, SERUM 6.6 g/dL (6.4-8.2); UREA NITROGEN, BLOOD 28 mg/dL (7-18)
--- NOTE | 2017-09-11 07:06 | NUR ---
MS RN NOTE PATIENT STABLE. BLOOD SUGAR 162. COVERAGE GIVEN ORDERED. PATIENT SLEEPING AT THIS TIME. WILL ENDORSE TO DAY SHIFT FOR ALONSO.
[2017-09-11 08:00] VITALS: BP 95/51
[2017-09-11] MEDS: MECLIZINE HCL 25 MG TABLET PO SCH (08:42)
[2017-09-11] MEDS: CHOLECALCIFEROL 1,000 UNIT TABLET (VIT D3) PO SCH (08:42)
[2017-09-11] MEDS: GLIMEPIRIDE 4 MG TABLET PO SCH ×2 (08:42→17:25)
[2017-09-11] MEDS: CLOPIDOGREL BISULFATE 75 MG TABLET PO SCH (08:42)
[2017-09-11] MEDS: METOPROLOL TARTRATE 25 MG TABLET PO SCH ×2 (08:43→21:00)
[2017-09-11] MEDS: BENAZEPRIL HCL 20 MG TABLET PO SCH (08:45)
[2017-09-11] MEDS ORDERED: FUROSEMIDE 40 MG/4 ML VIAL IV SCH (09:00)
[2017-09-11 16:00] VITALS: BP 108/68
[2017-09-11] MEDS ORDERED: ACETAMINOPHEN 325 MG TABLET PO PRN (16:30)
--- NOTE | 2017-09-11 16:47 | NUR ---
RT TITRATED O2 PER DR ORDERS TOOK OFF NASAL CANNULA PT SAT 98% INFORMED ALVARADO CORREA
--- NOTE | 2017-09-11 17:10 | NUR ---
M/S RN - Notes FSBS done noted with blood sugar 60 mg/dL, no s/s of hypoglycemia, denies dizziness, no shakiness seen, 4.2 fl oz apple juice given. Re-checked blood sugar within 20 mins, blood sugar was 134 mg/dL. Will continue to monitor closely.
--- NOTE | 2017-09-11 18:47 | NUR ---
M/S RN - End Notes Patient awake, A/O x 3, calm and cooperative with care, denies pain, no apparent distress seen, tolerating room air O2sat 97-98%, lungs clear on auscultation. Patient diuresing well, total urine output this shift was 2000 ml, Lasix 40 mg switched to oral dose, Cardura ordered as well for BP control. All needs attended and met. Will continue with current plan of care.
[2017-09-11 20:00] VITALS: BP 88/52
[2017-09-11] MEDS: TAMSULOSIN 0.4 MG CAP.SR.24H PO SCH (20:11)
[2017-09-11] MEDS: ATORVASTATIN 40 MG TABLET PO SCH (20:11)
[2017-09-11] MEDS ORDERED: DOXAZOSIN MESYLATE (1 MG) 1 MG TABLET PO SCH (22:00)
--- NOTE | 2017-09-12 06:17 | NUR ---
MS RN NOTE PATIENT STABLE. BLOOD SUGAR 99. NO COVERAGE NEEDED. PATIENT SLEEPING AT THIS TIME. WILL ENDORSE TO DAY SHIFT FOR ALONSO.
[2017-09-12] MEDS: BLOOD SUGAR DIAGNOSTIC 1 EACH STRIP IN SCH ×3 (07:54→16:56)
--- NOTE | 2017-09-12 07:59 | NUR ---
RN OPENING NOTES RECEIVED PATIENT AWAKE IN BED, ALERT AND ORIENTED, VERBALLY RESPONSIVE, BREATHING EVEN AND UNLABORED, NO SOB, ABLE TO MAKE NEEDS KNOWN, NO COMPLAINT OF PAIN, NO SIGNS AND SYMPTOMS OF ACUTE DISTRESS. BLOOD SUGAR CHECKED WITH LEVEL@ 86 MG/DL, NO INSULIN COVERAGE NEEDED. PATIENT'S NEEDS ATTENDED TO. BREAKFAST SERVED, ENCOURAGED PT TO EAT WELL. WILL CONTINUE TO MONITOR.
[2017-09-12 08:00] VITALS: BP 130/60
[2017-09-12] MEDS: CHOLECALCIFEROL 1,000 UNIT TABLET (VIT D3) PO SCH (08:51)
[2017-09-12] MEDS: CLOPIDOGREL BISULFATE 75 MG TABLET PO SCH (08:51)
[2017-09-12] MEDS: GLIMEPIRIDE 4 MG TABLET PO SCH ×2 (08:52→16:51)
[2017-09-12] MEDS: MECLIZINE HCL 25 MG TABLET PO SCH (08:52)
[2017-09-12 09:00] VITALS: BP 110/70
[2017-09-12] MEDS: BENAZEPRIL HCL 20 MG TABLET PO SCH (09:00)
[2017-09-12] MEDS: METOPROLOL TARTRATE 25 MG TABLET PO SCH (09:00)
[2017-09-12] MEDS ORDERED: FUROSEMIDE 40 MG TABLET PO SCH (09:00)
--- NOTE | 2017-09-12 09:00 | NUR ---
PATIENT VERBALIZED HE IS CONCERNED AND STARTING TO GET ANXIOUS ABOUT HIS BLOOD PRESSURE. INFORMED PATIENT THAT HIS BLOOD PRESSURE IS ON THE LOW SIDE AND WILL HOLD BP MEDS TO PREVENT IT FROM GETTING TOO LOW. RE-ASSURED PATIENT THAT WE WILL CONTINUE TO MONITOR HIS VITAL SIGNS. PATIENT AGREED WITH PLAN OF CARE.
[2017-09-12] MEDS: LORAZEPAM 1 MG TABLET PO PRN (09:01)
--- NOTE | 2017-09-12 09:01 | NUR ---
PATIENT VERBALIZED HE NEEDS SOMETHING TO RELAX, ATIVAN 1 MG PRN GIVEN. WILL CONTINUE TO MONITOR.
--- NOTE | 2017-09-12 09:30 | NUR ---
RN NOTES PATIENT SEEN AND EXAMINED BY DR. BALDERRAMA AND DISCUSSED PLAN OF CARE.
[2017-09-12] MEDS: INSULIN REGULAR, HUMAN 100 UNIT/ML 3 ML VIAL SQ PRN ×2 (11:59→17:06)
--- NOTE | 2017-09-12 14:00 | NUR ---
PATIENT SEEN BY PT FOR EVAL. ABLE TO AMBULATE WITH WALKER IN THE HALLWAYS, TOLERATED WELL.
--- NOTE | 2017-09-12 14:25 | NUR ---
RN NOTES PATIENT IN BED, SLEEPING BUT EASILY AROUSABLE. ALERT AND ORIENTED X 3, CALM, NO SOB NOTED, BREATHING EVEN AND UNLABORED, NO C/O PAIN AT THIS TIME. PLACED CALL LIGHT WITHIN EASY REACH. WILL CONTINUE TO MONITOR.
[2017-09-12 16:00] VITALS: BP 105/55
--- NOTE | 2017-09-12 17:00 | NUR ---
RN NOTES SPOKE WITH PATIENT'S SON, ARYAN, REGARDING DISCHARGE PLAN. SON REFUSED PLACEMENT TO SNF/ASSISTED LIVING. PREFERS TO BE DISCHARGED HOME TODAY. MD INFORMED WITH ORDERS TO DISCHARGE PATIENT HOME AND TO CONTINUE WITH ALL HOME MEDS. ORDER NOTED AND CARRIED OUT. PATIENT AND SON INFORMED OF DISCHARGE TODAY AND AGREES WITH PLAN. DISCHARGE INSTRUCTIONS GIVEN TO PATIENT AND SON. VERBALIZED UNDERSTANDING. AWAITING FOR SON TO KITCHEN HELPER PATIENT.
--- NOTE | 2017-09-12 18:10 | NUR ---
EXHIBITIONS AND COLLECTIONS MANAGER NOTES PATIENT'S SON, ARYAN, PRESENT TO HARDWOOD FLOOR FINISHER PATIENT IN FRONT OF HOSPITAL. PATIENT READY FOR DISCHARGE, UP IN WHEELCHAIR, ALERT AND ORIENTED X 3, NOTED WITH NO SOB, BREATHING EVEN AND UNLABORED, NO C/O PAIN, NO SIGNS AND SYMPTOMS OF ACUTE DISTRESS. ACCOMPANIED PATIENT DOWN TO HOSPITAL ENTRANCE VIA WHEELCHAIR. PATIENT EXITED FACILITY SAFELY AND WILL BE TRANSPORTED TO HOME VIA PRIVATE CAR. PATIENT AND SON THANKFUL FOR CARE RENDERED.
== END 2017-09-12 18:10 | disposition home or self-care (01) | DRG 280 ==
LOC: ER 21:39 → TELE 09-10 00:40 → MED 09-10 09:21
PROVIDERS: ADMIT Internal Medicine; ATTEND Internal Medicine
DX: I13.0 Hypertensive heart and chronic kidney disease with heart failure and stage 1 through stage 4 chronic kidney disease, or unspecified chronic kidney disease (principal); I50.33 Acute on chronic diastolic (congestive) heart failure; I21.4 Non-ST elevation (NSTEMI) myocardial infarction; N17.9 Acute kidney failure, unspecified; I25.10 Atherosclerotic heart disease of native coronary artery without angina pectoris; E11.22 Type 2 diabetes mellitus with diabetic chronic kidney disease; D63.8 Anemia in other chronic diseases classified elsewhere; J44.9 Chronic obstructive pulmonary disease, unspecified; K21.9 Gastro-esophageal reflux disease without esophagitis; E78.5 Hyperlipidemia, unspecified; F03.90 Unspecified dementia, unspecified severity, without behavioral disturbance, psychotic disturbance, mood disturbance, and anxiety; N18.9 Chronic kidney disease, unspecified; N40.0 Benign prostatic hyperplasia without lower urinary tract symptoms; Z79.84 Long term (current) use of oral hypoglycemic drugs; Z95.0 Presence of cardiac pacemaker; Z95.1 Presence of aortocoronary bypass graft; F41.9 Anxiety disorder, unspecified
CPT/HCPCS: 36415; 70450-TC; 71010-TC; 80048-TC; 80053-TC; 80061-TC; 82150-TC; 82962-TC; 83540-TC; 83690-TC; 83735-TC; 83880; 84100-TC; 84484-TC; 85025-TC; 85610-TC; 85730-TC; 87081-TC; A4606; A6402; J1815; J1940; J2060; J8597; Z7610

== ENCOUNTER 2017-09-19 20:46 | Inpatient (IN) | payer MEDICARE, MEDICAID ==
[~2017-09-19] VITALS: Ht 170.2 cm; Wt 78.9 kg
[2017-09-19 21:21] LABS: BASOPHILS % (AUTO) 0.4 % (0.0-2.0); EOSINOPHILS % (AUTO) 0.6 % (0.0-6.0); HEMATOCRIT 34 % (39-51); HEMOGLOBIN 11.2 g/dL (13.5-17.5); LYMPHOCYTES # (AUTO) 1.3 /CMM (0.8-4.8); MEAN CORPUSCULAR HEMOGLOBIN 32 PG (26.0-33.0); MEAN CORPUSCULAR HGB CONC 33 g/dl (31.0-36.0); MEAN CORPUSCULAR VOLUME 95 fL (80-96); MONOCYTES # (AUTO) 0.7 /CMM (0.1-1.30); NEUTROPHILS # (AUTO) 5.2 /CMM (1.8-8.9); PLATELET COUNT (AUTO) 160 /CMM (150-450); RDW COEFFICIENT OF VARIATION 13.6 (11.5-15.0); RED BLOOD CELL COUNT(AUTO) 3.56 MIL/uL (4.5-6.0); WHITE BLOOD COUNT (AUTO) 7.2 K/uL (4.3-11.0)
--- NOTE | 2017-09-19 21:23 | NUR ---
PT BB RA39 FROM HOME. PER EMS, SOB x30 MINS; RESOLVED ELECTRICAL SOFTWARE ENGINEER. PT REPORTS HE WAS HERE RECENTLY FOR THE SAME COMPLAINTS. PT AAOX3. VSS. SAFETY AND COMFORT MEASURES PROVIDED. WILL MONITOR.
--- NOTE | 2017-09-19 21:23 | NUR ---
IV ACCESS STARTED. BLOOD DRAWN FOR LABS.
[2017-09-19 21:30] LABS: CALCIUM, SERUM 8.3 mg/dL (8.5-10.1); CARBON DIOXIDE 28 mmol/L (21-32); CHLORIDE 96 mmol/L (98-107); CREATININE 1.5 mg/dL (0.6-1.3); GLUCOSE 308 mg/dL (74-106); POTASSIUM 4.6 mmol/L (3.5-5.1); SODIUM SERUM 131 mmol/L (136-145); UREA NITROGEN, BLOOD 20 mg/dL (7-18)
[2017-09-19 21:32] LABS: INR 1.03 (0.87-1.13); PROTHROMBIN TIME 10.7 SECS (9.5-12.7)
[2017-09-19 21:37] LABS: TROPONIN I 0.091 ng/mL (0.00-0.056)
[2017-09-19 21:42] LABS: ALANINE AMINOTRANSFERASE 29 U/L (12-78); ALBUMIN 3.6 g/dL (3.4-5.0); ALKALINE PHOSPHATASE 45 U/L (46-116); ASPARTATE AMINOTRANSFERASE 23 U/L (15-37); B-TYPE NATRIURETIC PEPTIDE 3401 PG/ML (0-125); BILIRUBIN,DIRECT 0.3 mg/dL (0.0-0.2); BILIRUBIN,TOTAL 1.5 mg/dL (0.2-1.0); TOTAL PROTEIN, SERUM 7.3 g/dL (6.4-8.2)
--- NOTE | 2017-09-19 22:24 | NUR ---
CALLED FOR TELE BED
--- NOTE | 2017-09-19 22:45 | NUR ---
FC INITIATED. URINE SAMPLE OBTAINED, SENT.
[2017-09-19 22:48] LABS: APPEARANCE,URINE CLEAR (CLEAR); BILIRUBIN,URINE NEGATIVE (NEGATIVE); BLOOD, URINE 2+ Ery/uL (NEGATIVE); COLOR,URINE YELLOW (YELLOW); KETONES,URINE NEGATIVE (NEGATIVE); LEUKOCYTE ESTERASE ,URINE NEGATIVE (NEGATIVE); NITRITE, URINE NEGATIVE (NEGATIVE); PROTEIN,URINE NEGATIVE (NEGATIVE); UGLUCOSE TRACE mg/dL (NEGATIVE); UROBILINOGEN,URINE 0.2 EU/dL (0.2)
--- NOTE | 2017-09-19 23:06 | NUR ---
CALLED FOR UPDATE ON TELE BED - NURSE SUP WILL CALL BACK
--- NOTE | 2017-09-19 23:12 | NUR ---
TELE 311-2
--- NOTE | 2017-09-19 23:20 | NUR ---
REPORT GIVEN TO RON CHILDERS FOR TELE ROOM 311-2
[2017-09-19 23:21] LABS: BACTERIA,URINE None seen /HPF (None Seen); SQUAMOUS EPITHELIAL CELL,UR Rare /HPF (None Seen); WBC,URINE 0-2 /HPF (0-3)
[2017-09-19 23:48] VITALS: BP 135/84
--- NOTE | 2017-09-19 23:48 | NUR ---
LASER MACHINE OPERATOR NOTES RECEIVED PT FROM ER VIA STRETCHER, TRANSFERRED TO BED SAFELY. PT IS A/O X 3 , VERBALLY RESPONSIVE. NO DISTRESS, NO SOB NOTED AT THIS TIME. DENIES ANY PAIN OR DISCOMFORT AT THIS TIME. BODY ASSESSMENT DONE, SKIN IS INTACT. FC IS INTACT AND PATENT DRAINING WELL WITH CLEAR YELLOW URINE, NO HEMATURIA NOTED. IV SITE ON LAC G# 20 INTACT AND PATENT , NO S/S OF INFILTRATION NOTED. ALL NEEDS ATTENDED AND MET. SAFETY PRECAUTIONS OBSERVED. KEPT COMFORTABLE. CALL LIGHT WITHIN REACH WILL CONT TO MONITOR.
[2017-09-20] VITALS (8 sets, daily range): BP systolic 110–154; BP diastolic 56–84
[2017-09-20] MEDS ORDERED: ONDANSETRON HCL/PF 4 MG/2 ML VIAL IVP PRN
[2017-09-20] MEDS ORDERED: ACETAMINOPHEN 325 MG TABLET PO PRN
[2017-09-20] MEDS ORDERED: ZOLPIDEM TARTRATE 5 MG TABLET PO PRN
[2017-09-20] MEDS ORDERED: Z GUARD REMEDY 2 OZ OINT TP PRN
[2017-09-20] MEDS ORDERED: MAG HYDROX/AL HYDROX/SIMETH 30 ML UDC PO PRN
[2017-09-20] MEDS ORDERED: ENOXAPARIN SODIUM 40 MG/0.4 ML DISP.SYRIN SQ ONE (00:13)
[2017-09-20] MEDS: ENOXAPARIN SODIUM 40 MG/0.4 ML DISP.SYRIN SQ SCH (00:18)
[2017-09-20] MEDS ORDERED: ZOLPIDEM TARTRATE 5 MG TABLET ONE (00:49)
[2017-09-20] MEDS ORDERED: ACETAMINOPHEN 325 MG TABLET ONE (00:51)
--- NOTE | 2017-09-20 00:55 | NUR ---
PT C/O INABILITY TO SLEEP, NON PHARMACOLOGICAL INTERVENTION RENDERED INEFFECTIVE. PT REQUESTED FOR AMBIEN GIVEN ORDERED. BP : 135/84, HR : 66, 02 SAT : 97 % . WILL CONT TO MONITOR.
--- NOTE | 2017-09-20 01:35 | NUR ---
PT DENIES ANY CHEST PAIN OR ANY DISCOMFORT AT THIS TIME.
--- NOTE | 2017-09-20 01:38 | NUR ---
RELAYED PT'S TROPONIN : 0.105 AND CLARIFIED WITH MD IF HE WANT TO ORDER IVF ( NA : 131) , MD WITH NNO AT THIS TIME.
--- NOTE | 2017-09-20 06:47 | NUR ---
FOREST RESOURCE SPECIALIST NOTES PT IN BED, RESTING AT THIS TIME, AROUSES EASILY. PT IS A/O X 3 , VERBALLY RESPONSIVE. NO DISTRESS, NO SOB NOTED AT THIS TIME. DENIES ANY PAIN OR DISCOMFORT AT THIS TIME. V PACING 61 ON TELE MONITOR. BODY ASSESSMENT DONE, SKIN IS INTACT. FC IS INTACT AND PATENT DRAINING WELL WITH CLEAR YELLOW URINE, NO HEMATURIA NOTED. IV SITE ON LAC G# 20 INTACT AND PATENT , NO S/S OF INFILTRATION NOTED. ALL NEEDS ATTENDED AND MET. SAFETY PRECAUTIONS OBSERVED. KEPT COMFORTABLE. CALL LIGHT WITHIN REACH WILL ENDORSE TO NEXT SHIFT FOR ALONSO. .
[2017-09-20 06:51] LABS: BASOPHILS % (AUTO) 0.4 % (0.0-2.0); EOSINOPHILS # (AUTO) 0.1 /CMM (0.0-0.7); HEMATOCRIT 30 % (39-51); HEMOGLOBIN 10.3 g/dL (13.5-17.5); LYMPHOCYTES # (AUTO) 1.6 /CMM (0.8-4.8); LYMPHOCYTES % (AUTO) 23.3 % (20.0-44.0); MEAN CORPUSCULAR HEMOGLOBIN 32 PG (26.0-33.0); MEAN CORPUSCULAR HGB CONC 34 g/dl (31.0-36.0); MEAN CORPUSCULAR VOLUME 96 fL (80-96); MONOCYTES # (AUTO) 0.7 /CMM (0.1-1.30); MONOCYTES % (AUTO) 10.2 % (2.0-12.0); NEUTROPHILS # (AUTO) 4.6 /CMM (1.8-8.9); NEUTROPHILS % (AUTO) 65.1 % (43.0-81.0); PLATELET COUNT (AUTO) 145 /CMM (150-450); RDW COEFFICIENT OF VARIATION 14.2 (11.5-15.0); RED BLOOD CELL COUNT(AUTO) 3.16 MIL/uL (4.5-6.0); WHITE BLOOD COUNT (AUTO) 7.1 K/uL (4.3-11.0)
[2017-09-20 07:05] LABS: CHOLESTEROL 102 mg/dL (<200); HDL CHOLESTEROL 47 mg/dL (40-60); LDL 49 mg/dL (0-99); TRIGLYCERIDES 31 mg/dL (30-150)
--- NOTE | 2017-09-20 07:37 | NUR ---
INFRASTRUCTURE ARCHITECT NOTES RECEIVED PT RESTING IN BED, AWAKE A/O X 3 , VERBALLY RESPONSIVE. NO FORM OF DISTRESS NOTED, SOB WITH MINIMAL EXERTION ON 02 AT 2 LPM VIA NC. CHEST XRAY DONE AT BEDSIDE, SEEN BY DR NEWMAN MIGRATORY FARM HAND. PATIENT DENIES ANY PAIN OR DISCOMFORT AT THIS TIME. PER TELE MONITOR HR 60 WITH V PACING. DO CATH IN PLACE DRAINING WELL WITH CLEAR YELLOW URINE. IV SITE TO LAC G# 20 INTACT AND PATENT , NO S/S OF INFILTRATION NOTED. SAFETY MEASURES RENDERED, CALL LIGHT WITHIN REACH WILL CONTINUE TO MONITOR .
[2017-09-20] MEDS: FUROSEMIDE 40 MG/4 ML VIAL IV SCH ×3 (08:33→17:05)
[2017-09-20] MEDS: MECLIZINE HCL 25 MG TABLET PO SCH (08:33)
[2017-09-20] MEDS: GLIMEPIRIDE 4 MG TABLET PO SCH ×2 (08:33→17:05)
[2017-09-20] MEDS: CLOPIDOGREL BISULFATE 75 MG TABLET PO SCH (08:33)
[2017-09-20] MEDS: CHOLECALCIFEROL 1,000 UNIT TABLET (VIT D3) PO SCH (08:34)
[2017-09-20 08:35] LABS: ALANINE AMINOTRANSFERASE 27 U/L (12-78); ALKALINE PHOSPHATASE 40 U/L (46-116); ASPARTATE AMINOTRANSFERASE 18 U/L (15-37); BILIRUBIN,TOTAL 1.3 mg/dL (0.2-1.0); CALCIUM, SERUM 8.1 mg/dL (8.5-10.1); CARBON DIOXIDE 23 mmol/L (21-32); CHLORIDE 104 mmol/L (98-107); CREATININE 1.5 mg/dL (0.6-1.3); GLUCOSE 149 mg/dL (74-106); MAGNESIUM 1.9 mg/dL (1.8-2.4); PHOSPHORUS 3.6 mg/dL (2.5-4.9); POTASSIUM 3.8 mmol/L (3.5-5.1); SODIUM SERUM 141 mmol/L (136-145); TOTAL PROTEIN, SERUM 6.4 g/dL (6.4-8.2); UREA NITROGEN, BLOOD 17 mg/dL (7-18)
[2017-09-20] MEDS: BENAZEPRIL HCL 20 MG TABLET PO SCH (08:35)
[2017-09-20] MEDS: METOPROLOL TARTRATE 25 MG TABLET PO SCH ×2 (08:35→21:46)
[2017-09-20] MEDS ORDERED: FUROSEMIDE 20 MG TABLET PO SCH (09:00)
[2017-09-20] MEDS: HYDROCODONE/APAP 5/325MG 1 EACH TABLET PO PRN (12:18)
--- NOTE | 2017-09-20 15:20 | NUR ---
TELE/RN NOTES HEMATURIA NOTED IN PATIENT DO CATH BAG WITH GOOD URINE OUTPUT. FLUSHED DO WITH 30CC WATER AND NOTIFIED MD.
[2017-09-20] MEDS ORDERED: BISOPROLOL FUMARATE 5 MG TABLET PO SCH (16:00)
--- NOTE | 2017-09-20 18:28 | NUR ---
TELE/RN NOTES PATIENT RESTING IN BED COMFORTABLY AT THIS TIME. ALL DUE MEDICATIONS GIVEN, ALL NEEDS MET AND ATTENDED. DIURESIS PROVIDED WITH LASIX EVERY 4 HOURS, VITAL SIGNS MONITORED CLOSELY AND ACCORDINGLY. TOTAL URINE OUTPUT VIA F/C 2850. ON CONTINUOS 02 AT 2 LPM MAY TITRATE UP TO 5 TO KEEP 02 ABOVE 92%. PER TELE READING VPACYING HR 60. PATIENT HAS BEEN STABLE THROUGHOUT THE SHIFT WITH WILL ENDORSE CARE TO CYBER DEFENSE ANALYST NURSE FOR ALONSO.
--- NOTE | 2017-09-20 19:45 | NUR ---
METAL BONDING CRIB ATTENDANT OPENING NOTES RECEIVED PATIENT RESTING IN BED, A & O X 3. NO C/O PAIN, NO SOB, NO ACUTE DISTRESS NOTED AT THIS TIME. ON TELE MONITORING WITH V PACING @ 60/MT. DO CATH IN PLACE WITH SLIGHT RED COLOR URINE POSSIBLE DUE TO TRAUMA DURING CATHETERIZATION, PER AM RN. WOODWORKING MACHINE OFFBEARER TWIN AWARE & ADVISED CONTINUE TO MONITOR. IV ACCESS TO LAC, INTACT PATENT. SAFETY MEASURES IN PLACE. BED ALARM ON & IN LOW LOCKED POSITION. WILL CONTINUE TO MONITOR CLOSELY.
[2017-09-20] MEDS: ATORVASTATIN 40 MG TABLET PO SCH (21:40)
[2017-09-20] MEDS: TAMSULOSIN 0.4 MG CAP.SR.24H PO SCH (21:40)
[2017-09-20] MEDS: DOXAZOSIN MESYLATE (1 MG) 1 MG TABLET PO SCH (21:45)
--- NOTE | 2017-09-20 23:00 | NUR ---
ELECTROCARDIOGRAPH TECHNICIAN NOTES PATIENT C/O SOB, V/S CHECKED 127/68, 63, 18, 95 %, ON O2 @ 2 LPM. PATIENT NOTED WITH EPISODES OF ANXIOUSNESS, BUT WHEN STAYED WITH HIM, TALKED TO HIM HE SMILES, LAUGHS, TALKS ABOUT HIS SON BEING BUSY IN HIS LIFE & WORRIED THAT WHO WOULD TAKE CARE OF HIM WHEN HE GOES HOME. NO SOB NOTED. REASSURED HIM THAT HIS SON WILL MAKE ARRANGEMENTS WHEN HE D/C HOME & WAS EFFECTIVE. HE RELAXED & STATED, HE WANTS TO SLEEP. WILL CONTINUE TO OBSERVE.
[2017-09-21] VITALS (8 sets, daily range): BP systolic 96–120; BP diastolic 57–69
[2017-09-21] MEDS: HYDROCODONE/APAP 5/325MG 1 EACH TABLET PO PRN (00:03)
--- NOTE | 2017-09-21 00:03 | NUR ---
PRN NORCO GIVEN PATIENT HAD C/O HEADACHE & WANTED TO TAKE ONLY NORCO, PRN NORCO GIVEN ORDERED. WILL REASSESS FOR EFFECTIVENESS.
[2017-09-21] MEDS: ENOXAPARIN SODIUM 40 MG/0.4 ML DISP.SYRIN SQ SCH (00:21)
--- NOTE | 2017-09-21 06:25 | NUR ---
COOL ROOFING INSTALLER CLOSING NOTES PATIENT SLEPT INTERMITTENTLY @ NIGHT. EPISODE OF ANXIOUSNESS NOTED BUT REDIRECTABLE & CALMED DOWN. NO SOB EXACERBATION, NO ACUTE CHANGES NOTED. A & O X 3. ON O2 @ 2 LPM VIA NC. ON TELE MONITORING WITH V PACING 60/MNT. DO CATH IN PLACE, SLIGHT REDDISH/PINKISH COLOR OF URINE NOTED, BUT URINE COLOR HAS IMPROVED THAN BEFORE. BENCH TOOL MAKER TWIN AWARE. IV ACCESS TO LAC. INTACT PATENT. BED IN LOW LOCKED POSITION. CALL LIGHT WITHIN REACH. WILL ENDORSE TO AM RN FOR CONTINUITY OF CARE.
[2017-09-21 06:30] LABS: BASOPHILS % (AUTO) 0.5 % (0.0-2.0); EOSINOPHILS # (AUTO) 0.1 /CMM (0.0-0.7); EOSINOPHILS % (AUTO) 1.8 % (0.0-6.0); HEMATOCRIT 32 % (39-51); HEMOGLOBIN 10.8 g/dL (13.5-17.5); LYMPHOCYTES # (AUTO) 1.5 /CMM (0.8-4.8); MEAN CORPUSCULAR HEMOGLOBIN 32 PG (26.0-33.0); MEAN CORPUSCULAR HGB CONC 34 g/dl (31.0-36.0); MEAN CORPUSCULAR VOLUME 95 fL (80-96); MONOCYTES # (AUTO) 0.6 /CMM (0.1-1.30); MONOCYTES % (AUTO) 9.5 % (2.0-12.0); NEUTROPHILS # (AUTO) 3.7 /CMM (1.8-8.9); NEUTROPHILS % (AUTO) 62.2 % (43.0-81.0); PLATELET COUNT (AUTO) 148 /CMM (150-450); RDW COEFFICIENT OF VARIATION 14.5 (11.5-15.0); RED BLOOD CELL COUNT(AUTO) 3.37 MIL/uL (4.5-6.0); WHITE BLOOD COUNT (AUTO) 5.9 K/uL (4.3-11.0)
[2017-09-21 06:55] LABS: TROPONIN I 0.081 ng/mL (0.00-0.056)
[2017-09-21 07:07] LABS: ALANINE AMINOTRANSFERASE 26 U/L (12-78); ALBUMIN 3.1 g/dL (3.4-5.0); ALKALINE PHOSPHATASE 41 U/L (46-116); ASPARTATE AMINOTRANSFERASE 15 U/L (15-37); BILIRUBIN,TOTAL 1.6 mg/dL (0.2-1.0); CALCIUM, SERUM 8.4 mg/dL (8.5-10.1); CARBON DIOXIDE 28 mmol/L (21-32); CHLORIDE 104 mmol/L (98-107); CREATININE 1.5 mg/dL (0.6-1.3); GLUCOSE 157 mg/dL (74-106); MAGNESIUM 1.9 mg/dL (1.8-2.4); POTASSIUM 3.9 mmol/L (3.5-5.1); SODIUM SERUM 141 mmol/L (136-145); TOTAL PROTEIN, SERUM 6.7 g/dL (6.4-8.2); UREA NITROGEN, BLOOD 19 mg/dL (7-18)
--- NOTE | 2017-09-21 07:20 | NUR ---
RN INITIAL NOTE PATIENT RECEIVED IN BED SLEEPING. NO SOB OR DISTRESS, PATIENT DOES NOT APPEAR TO BE IN PAIN, NO FACIAL GRIMACE NOTED. HEART RATE VPACING IN THE 60S. BED IN A LOW POSITION, CALL LIGHT WITHIN PATIENT REACH. WILL CONTINUE TO MONITOR.
[2017-09-21] MEDS: METOPROLOL TARTRATE 25 MG TABLET PO SCH ×2 (07:49→21:44)
[2017-09-21] MEDS: CHOLECALCIFEROL 1,000 UNIT TABLET (VIT D3) PO SCH (08:03)
[2017-09-21] MEDS: BENAZEPRIL HCL 20 MG TABLET PO SCH (08:03)
[2017-09-21] MEDS: GLIMEPIRIDE 4 MG TABLET PO SCH ×2 (08:03→16:40)
[2017-09-21] MEDS: MECLIZINE HCL 25 MG TABLET PO SCH (08:03)
[2017-09-21] MEDS: CLOPIDOGREL BISULFATE 75 MG TABLET PO SCH (08:03)
--- NOTE | 2017-09-21 08:48 | NUR ---
CALLED SILVIO MURCIA, PATIENT IS COMPLAINING OF EXTREME ANXIETY. TWIN ORDERED ATIVAN 1MG PO. WILL PLACE ORDERS.
[2017-09-21] MEDS ORDERED: LORAZEPAM 1 MG TABLET PO ONE (09:00)
--- NOTE | 2017-09-21 09:42 | NUR ---
TWIN ASKS TO PLACE A Q8H 1MG ATIVAN ORDER PRN.
[2017-09-21] MEDS ORDERED: LORAZEPAM 1 MG TABLET PO PRN (13:30)
[2017-09-21] MEDS: busPIRone 5 MG TABLET PO SCH (17:22)
--- NOTE | 2017-09-21 19:37 | NUR ---
MS RN OPENING NOTES RECEIVED PATIENT RESTING IN BED, A & O X 3. NO C/O PAIN, NO SOB, NO ACUTE DISTRESS NOTED AT THIS TIME. DO CATH IN PLACE WITH YELLOW COLOR URINE. PER AM RN, PT HAS REFUSED TO TAKE METOPROLOL & CARDURA IN AM SHIFT. AWARE. IV ACCESS TO LAC, INTACT PATENT. SAFETY MEASURES IN PLACE. BED ALARM ON & IN LOW LOCKED POSITION. WILL CONTINUE TO MONITOR CLOSELY.
[2017-09-21] MEDS: TAMSULOSIN 0.4 MG CAP.SR.24H PO SCH (21:44)
[2017-09-21] MEDS: ATORVASTATIN 40 MG TABLET PO SCH (21:44)
[2017-09-21] MEDS: DOXAZOSIN MESYLATE (1 MG) 1 MG TABLET PO SCH (22:00)
--- NOTE | 2017-09-21 22:34 | NUR ---
REFUSED CARDURA PATIENT REFUSED TO TAKE CARDURA SCHEDULED, AFRAID OF HAVING HIGH BP AFTER TAKING CARDURA, STATES MD PRESCRIBED HIM TOO MUCH MEDICINES FOR BP BUT HE ONLY TAKES 2 @ HOME. EXPLAINED HIM THE RISK BUT STILL REFUSED. BP WNL @ THIS TIME.
[2017-09-22] MEDS: ENOXAPARIN SODIUM 40 MG/0.4 ML DISP.SYRIN SQ SCH ×2 (00:54→23:58)
[2017-09-22] MEDS: MAGNESIUM HYDROXIDE 30 ML UDC PO PRN ×2 (02:44→12:28)
--- NOTE | 2017-09-22 02:44 | NUR ---
PRN MOM GIVEN PATIENT VERBALIZED HAVING CONSTIPATION, NO BM X 3 DAYS. PRN MOM GIVEN. WILL MONITOR FOR EFFECTIVENESS.
--- NOTE | 2017-09-22 06:32 | NUR ---
MS RN OPENING NOTES PATIENT SLEPT INTERMITTENTLY @ NIGHT, A & O X 3. NO C/O PAIN, NO SOB, NO ACUTE DISTRESS NOTED AT THIS TIME. ON O2 @ 2 LMP VIA NC. DO CATH IN PLACE WITH JAYDNE COLOR URINE. IV ACCESS TO LAC, INTACT PATENT.SAFETY MEASURES IN PLACE. BED ALARM ON & IN LOW LOCKED POSITION. WILL ENDORSE TO AM RN FOR CONTINUITY OF CARE.
--- NOTE | 2017-09-22 06:32 | NUR ---
ADDENDUM MS RN CLOSING NOTES, NOT OPENING NOTES.
--- NOTE | 2017-09-22 07:20 | NUR ---
RN OPENING NOTES RECEIVED PATIENT IN BED RESTING, A/OX4. NO ACUTE DISTRESS, NO SOB NOTED, DENIES PAIN OR DISCOMFORT AT THE MOMENT. ON 2LPM VIA NC, 96% SATURATION. IV SITE INTACT AND PATENT. DO CATH IN PLACE, DRAINING JAYDEN CLEAR URINE. KEPT PATIENT SAFE AND COMFORTABLE. BED IN LOCKED, LOW POSITION, HOB ELEVATED, SIDERAILS UPX2, CALL LIGHT IN REACH, WILL CONTINUE TO MONITOR ACCORDINGLY.
[2017-09-22 08:00] VITALS: BP 104/59
[2017-09-22] MEDS: GLIMEPIRIDE 4 MG TABLET PO SCH ×2 (08:22→16:52)
[2017-09-22] MEDS: CLOPIDOGREL BISULFATE 75 MG TABLET PO SCH (08:22)
[2017-09-22] MEDS: MECLIZINE HCL 25 MG TABLET PO SCH (08:23)
[2017-09-22] MEDS: CHOLECALCIFEROL 1,000 UNIT TABLET (VIT D3) PO SCH (08:23)
[2017-09-22 08:24] VITALS: BP 104/59
[2017-09-22] MEDS: busPIRone 5 MG TABLET PO SCH ×2 (08:49→16:52)
[2017-09-22] MEDS: BENAZEPRIL HCL 20 MG TABLET PO SCH (09:00)
[2017-09-22] MEDS: METOPROLOL TARTRATE 25 MG TABLET PO SCH ×2 (09:00→20:38)
[2017-09-22] MEDS: FUROSEMIDE 40 MG TABLET PO SCH (10:36)
--- NOTE | 2017-09-22 12:30 | NUR ---
RN NOTES PATIENT VERBALIZED NO BM X3 DAYS, MOM GIVEN ORDERED. WILL MONITOR ACCORDINGLY.
[2017-09-22 16:00] VITALS: BP 144/70
--- NOTE | 2017-09-22 19:10 | NUR ---
RN CLOSING NOTES NO CHANGE IN PATIENT'S CONDITION. DISCHARGE WAS ON HOLD, PT EVAL WASNT DONE YET. ALL NEEDS ATTENDED AND PROVIDED. NO ACUTE DISTRESS, NO SOB NOTED. HAD A BM TODAY. BED IN LOCKED, LOW POSITION, SIDERAILS UPX2, HOB ELEVATED. CALL LIGHT IN REACH. ENDORSED TO NIGHT RN FOR ALONSO.
[2017-09-22] MEDS: HYDROCODONE/APAP 5/325MG 1 EACH TABLET PO PRN (19:59)
[2017-09-22 20:00] VITALS: BP 126/64
--- NOTE | 2017-09-22 20:00 | NUR ---
RN NOTES RECEIVED PATIENT IN BED, ALERT AND ORIENTED X3, NO RESPIRATORY DISTRESS, TOLERATING 2LPM VIA NC, SPO2 94%. COMPLAINING OF HEADACHE AT 9/10. NORCO 5/325 PO IS DUE, WILL ADMINISTER. LAC #20 IS SECURED WITH DRESSING, DO CATHETER DRAINING WELL OF DARK YELLOW URINE. SEEN EVALUATED BY PT, AMBULATED WITH WALKER. NEEDS ATTENDED. CALL LIGHT WITHIN REACH.
--- NOTE | 2017-09-22 20:07 | NUR ---
RN NOTES GIVEN NORCO 5/325 PO PRN, COMPLAINING OF HEADACHE OF 10. VITAL SIGNS STABLE, WILL CONTINUE TO MONITOR
[2017-09-22 20:53] VITALS: BP 126/64
[2017-09-22] MEDS: TAMSULOSIN 0.4 MG CAP.SR.24H PO SCH (22:32)
[2017-09-22] MEDS: DOXAZOSIN MESYLATE (1 MG) 1 MG TABLET PO SCH (22:32)
[2017-09-22] MEDS: ATORVASTATIN 40 MG TABLET PO SCH (22:32)
--- NOTE | 2017-09-23 01:00 | NUR ---
RN NOTES PER PATIENT, FEELING HIS BLOOD SUGAR IS LOW AND HUNGRY, WAS GIVEN A SANDWICH BEFORE REQUESTING ACCUCHECK. BG 209 MG/DL. HAS NO ROUTINE ORDER OF ACCUCHECK.
--- NOTE | 2017-09-23 06:41 | NUR ---
RN NOTES PATIENT IS ALERT AND AWAKE, NO DISTRESS, CALM, DENIES ANY PAIN AT THIS TIME, SLEPT FOR 5 HOURS, NO ADVERSE CHANGE OF CONDITION DURING SHIFT, ALL NEEDS ATTENDED, FOR DISCHARGE TODAY. NEEDS ATTENDED, CALL LIGHT WITHIN REACH.
--- NOTE | 2017-09-23 07:15 | NUR ---
RN NOTES PT IS SLEEPING COMFORTABLY IN BED, NO SIGNS OF DISTRESS NOTED. PT ON 2L O2, RESPIRATIONS ARE EVEN AND UNLABORED. IV ON LAC INTACT, SL. DO CATHETER IS INTACT AND DRAINING. SAFETY MEASURES ARE IN PLACE, CALL LIGHT IS IN REACH. WILL CONTINUE TO MONITOR.
[2017-09-23 08:00] VITALS: BP 121/67
[2017-09-23] MEDS: CHOLECALCIFEROL 1,000 UNIT TABLET (VIT D3) PO SCH (08:16)
[2017-09-23] MEDS: GLIMEPIRIDE 4 MG TABLET PO SCH (08:16)
[2017-09-23] MEDS: MECLIZINE HCL 25 MG TABLET PO SCH (08:16)
[2017-09-23] MEDS: FUROSEMIDE 40 MG TABLET PO SCH (08:16)
[2017-09-23] MEDS: CLOPIDOGREL BISULFATE 75 MG TABLET PO SCH (08:16)
[2017-09-23] MEDS: busPIRone 5 MG TABLET PO SCH (08:16)
[2017-09-23] MEDS: METOPROLOL TARTRATE 25 MG TABLET PO SCH (08:17)
[2017-09-23] MEDS ORDERED: LORA1TAB PO (08:53)
[2017-09-23] MEDS ORDERED: HYDR-552 PO (08:54)
[2017-09-23 09:00] VITALS: BP 94/56
[2017-09-23] MEDS: BENAZEPRIL HCL 20 MG TABLET PO SCH (09:00)
[2017-09-23] MEDS: HYDROCODONE/APAP 5/325MG 1 EACH TABLET PO PRN (10:01)
--- NOTE | 2017-09-23 15:40 | NUR ---
RN NOTES PT WAS DISCHARGED TO [facility] ACCOMPANIED BY EMT'S IN AMBULANCE. PT LEFT IN STABLE CONDITION. IV AND ID BAND WERE REMOVED. BELONGINGS LIST AND DISCHARGE PAPERS WERE SIGNED. MEDICATIONS AND BELONGINGS WERE RETURNED TO PT. REPORT WAS G[facility] TO EV[facility].
== END 2017-09-23 15:45 | DRG 280 ==
LOC: ER 20:48 → TELE 23:19 → MED 09-21 08:02
PROVIDERS: ADMIT Internal Medicine; ATTEND Internal Medicine
DX: I13.0 Hypertensive heart and chronic kidney disease with heart failure and stage 1 through stage 4 chronic kidney disease, or unspecified chronic kidney disease (principal); I21.A1 Myocardial infarction type 2; I50.43 Acute on chronic combined systolic (congestive) and diastolic (congestive) heart failure; N17.9 Acute kidney failure, unspecified; J90 Pleural effusion, not elsewhere classified; E87.1 Hypo-osmolality and hyponatremia; R17 Unspecified jaundice; E11.22 Type 2 diabetes mellitus with diabetic chronic kidney disease; N18.9 Chronic kidney disease, unspecified; D63.8 Anemia in other chronic diseases classified elsewhere; E78.5 Hyperlipidemia, unspecified; K21.9 Gastro-esophageal reflux disease without esophagitis; L80 Vitiligo; Z95.5 Presence of coronary angioplasty implant and graft; Z79.84 Long term (current) use of oral hypoglycemic drugs; N40.0 Benign prostatic hyperplasia without lower urinary tract symptoms; Z95.0 Presence of cardiac pacemaker; E80.6 Other disorders of bilirubin metabolism; E11.65 Type 2 diabetes mellitus with hyperglycemia; Z91.19 Patient's noncompliance with other medical treatment and regimen; F43.22 Adjustment disorder with anxiety
CPT/HCPCS: 36415; 71010-TC; 76700-TC; 80048-TC; 80053-TC; 80061-TC; 80076-TC; 81000-TC; 82962-TC; 83735-TC; 83880; 84100-TC; 84484-TC; 85025-TC; 85730-TC; 87081-TC; A4606; J1650; J1940; J8597; Z7610

== ENCOUNTER 2019-01-07 14:32 | Inpatient (IN) | payer MEDICARE, MEDICAID ==
[~2019-01-07] VITALS: Ht 175.3 cm; Wt 78.1 kg
[~2019-01-07 14:32] MED LIST changes: -BENA40TA2 PO; +BENA40TA8 PO; +CLOP75TA15 PO; -CLOP75TA2 PO; +HYDR-4384 PO; +LORA1TAB PO
--- NOTE | 2019-01-07 14:50 | NUR ---
[id number], HAD A SYNCOPE AND FALL, C/O LEFT HIP PAIN, POSSIBLE DISLOCATION. PATIENT A/OX3, PLACED ON A GOWN, AND MONITOR. BREATHING EVEN AND UNLABORED, NO SOB NOTED, ANXIOUS AND RESTLESS. AWAITING FOR MD DE GUZMAN.
[2019-01-07 14:58] LABS: BASOPHILS % (AUTO) 0.2 % (0.0-2.0); EOSINOPHILS % (AUTO) 1.3 % (0.0-6.0); HEMATOCRIT 36 % (39-51); LYMPHOCYTES # (AUTO) 1.9 /CMM (0.8-4.8); LYMPHOCYTES % (AUTO) 34.7 % (20.0-44.0); MEAN CORPUSCULAR HGB CONC 34 g/dl (31.0-36.0); MEAN CORPUSCULAR VOLUME 99 fL (80-96); MONOCYTES # (AUTO) 0.4 /CMM (0.1-1.30); MONOCYTES % (AUTO) 7.7 % (2.0-12.0); NEUTROPHILS % (AUTO) 56.1 % (43.0-81.0); PLATELET COUNT (AUTO) 158 /CMM (150-450); RED BLOOD CELL COUNT(AUTO) 3.64 MIL/uL (4.5-6.0); WHITE BLOOD COUNT (AUTO) 5.4 K/uL (4.3-11.0)
[2019-01-07] MEDS ORDERED: ONDANSETRON HCL/PF 4 MG/2 ML VIAL IV ONE (15:00)
[2019-01-07] MEDS ORDERED: MORPHINE SULFATE INJ 2 MG/ML DISP.SYRIN IV ONE (15:00)
[2019-01-07 15:06] LABS: CALCIUM, SERUM 9.4 mg/dL (8.5-10.1); CARBON DIOXIDE 30 mmol/L (21-32); CHLORIDE 103 mmol/L (98-107); CREATININE 1.5 mg/dL (0.6-1.3); GLUCOSE 106 mg/dL (74-106); SODIUM SERUM 143 mmol/L (136-145); UREA NITROGEN, BLOOD 26 mg/dL (7-18)
--- NOTE | 2019-01-07 15:11 | NUR ---
CALLED [facility] RE: PT/CONSULT
[2019-01-07] MEDS ORDERED: MORPHINE SULFATE INJ 4 MG/ML DISP.SYRIN ONE (15:25)
[2019-01-07] MEDS ORDERED: ONDANSETRON HCL/PF 4 MG/2 ML VIAL ONE (15:25)
--- NOTE | 2019-01-07 15:45 | NUR ---
2ND CALL FOR [facility] CONSULT. SEBASTIAN BARTLETT PA-C
--- NOTE | 2019-01-07 16:27 | NUR ---
CALLED [facility] MARIE STATES LUCILLE ESPINOZA PAGED AND WILL RE-PAGE.
--- NOTE | 2019-01-07 16:49 | NUR ---
4TH CALL TO [facility] RE: CONSULT
--- NOTE | 2019-01-07 17:11 | NUR ---
PT IS GOING TO RM 326-1
--- NOTE | 2019-01-07 18:20 | NUR ---
REPORT GIVEN TO RYLEE CHILDERS FOR ALONSO
--- NOTE | 2019-01-07 18:28 | NUR ---
TELE/ACID REGENERATOR PATIENT TRANSFERRED FROM ER VIA STRETCHER IN STABLE CONDITION. A/O X 2-3, ALBANIAN SPEAKING. NO SIGNS OF ACUTE DISTRESS. NO COMPLAIN OF PAIN OR DISCOMFORT. ON TELE MONITOR NOTED WITH SINUS RHYTHM WITH RATE OF 70'S. ADMITTING DIAGNOSIS SYNCOPE, S/P FALL AT HOME, HIP XRAY SHOWED LEFT HIP FRACTURE. LEFT AC IV SITE 20G, CLEAN DRY AND INTACT, FLUSHES WELL. CONTINENT OF BOWEL AND BLADDER, AMBULATE WITH ASSIST WALKER AT HOME. AT THIS TIME ON BED REST DUE TO LEFT HIP FRACTURE. ALL NEEDS ATTENDED TO. CALL LIGHT WITHIN REACH. WILL ENDORSE TO NEXT SHIFT FOR CONTINUITY OF CARE. LINOLEUM FLOOR LAYER TWIN BLAS PAGED FOR ADMISSION ORDERS. SON AT BEDSIDE AWARE.
--- NOTE | 2019-01-07 18:30 | NUR ---
PATIENT TRANSFERRED TO ROOM 326-1 IN STABLE CONDITION.
[2019-01-07 18:40] VITALS: BP 136/61
[2019-01-07 18:41] VITALS: BP 136/61
--- NOTE | 2019-01-07 18:52 | NUR ---
TELE/RN SPOKE WITH SILVIO BLAS AND RECEIVED CARDIAC DIET ORDER. TWIN PIECER ALSO MADE AWARE PATIENT'S SON ARYAN AT BEDSIDE WANTS TO SPEAK WITH HIM. PER TWIN ANGUIANO HE WILL BE ROUNDING SOON AND WILL TALK TO THE FAMILY AND PUT ORDER NEEDED.
--- NOTE | 2019-01-07 19:15 | NUR ---
IRONER OR PRESSER OPENING NOTES Received patient in bed, alert, oriented x 3. Son at bedside. Breahing even and unlabored. Not in any distress. Tele monitor in place, sinus rhythm 78. IV line on LAC g#20 intact and patent. Patient stable as endorsed by the morning RN. Will continue to monitor accordingly
[2019-01-07 20:00] VITALS: BP 122/50
[2019-01-07] MEDS ORDERED: ONDANSETRON HCL/PF 4 MG/2 ML VIAL IVP PRN (20:00)
[2019-01-07] MEDS ORDERED: ACETAMINOPHEN 650 MG/SUPP.RECT RC PRN (20:00)
[2019-01-07] MEDS ORDERED: PANTOPRAZOLE 40 MG VIAL IV SCH (20:00)
[2019-01-07] MEDS ORDERED: MAG HYDROX/AL HYDROX/SIMETH 30 ML UDC PO PRN (20:00)
[2019-01-07] MEDS ORDERED: INSULIN REGULAR, HUMAN 100 UNIT/ML 3 ML VIAL SQ PRN (20:00)
[2019-01-07] MEDS ORDERED: DEXTROSE 50%-WATER 50 ML DISP.SYRIN IV PRN ×2 (20:00)
[2019-01-07] MEDS ORDERED: MAGNESIUM HYDROXIDE 30 ML UDC PO PRN (20:00)
[2019-01-07] MEDS: PANTOPRAZOLE 40 MG TABLET.DR PO SCH (20:58)
[2019-01-07] MEDS: ACETAMINOPHEN 325 MG TABLET PO PRN (20:59)
--- NOTE | 2019-01-07 20:59 | NUR ---
RN NOTES Patient c/o headache. Tylenol 650mg PO given as ordered
[2019-01-07] MEDS: HEPARIN SODIUM, PORCINE 5000 UNITS/1 ML VIAL SQ SCH (21:57)
[2019-01-07] MEDS: LATANOPROST EYE DROP 0.005% 2.5 ML BOTTLE OP SCH (21:58)
[2019-01-07] MEDS: BLOOD SUGAR DIAGNOSTIC 1 EACH STRIP IN SCH (21:58)
[2019-01-07] MEDS ORDERED: IV D5/ 0.9% NACL 1,000 ML IV PRN (22:00)
[2019-01-07] MEDS: INSULIN REGULAR, HUMAN 100 UNIT/ML 3 ML VIAL SQ PRN (22:01)
[2019-01-08] VITALS: BP 125/54
[2019-01-08] MEDS ORDERED: BLOOD SUGAR DIAGNOSTIC 1 EACH STRIP IN SCH
[2019-01-08 04:00] VITALS: BP 102/62
[2019-01-08] MEDS: MORPHINE SULFATE INJ 2 MG/ML DISP.SYRIN IV PRN (04:55)
--- NOTE | 2019-01-08 04:56 | NUR ---
RN NOTES Patient c/o of pain on L hip, 07/01. BP checked- 110/72, HR-61. Morphine 2mg given as ordered. Will continue to monitor
[2019-01-08 06:33] LABS: BASOPHILS % (AUTO) 0.2 % (0.0-2.0); EOSINOPHILS % (AUTO) 1.9 % (0.0-6.0); HEMATOCRIT 31 % (39-51); HEMOGLOBIN 10.6 g/dL (13.5-17.5); LYMPHOCYTES # (AUTO) 1.4 /CMM (0.8-4.8); LYMPHOCYTES % (AUTO) 17.9 % (20.0-44.0); MEAN CORPUSCULAR HGB CONC 35 g/dl (31.0-36.0); MEAN CORPUSCULAR VOLUME 97 fL (80-96); MONOCYTES # (AUTO) 0.6 /CMM (0.1-1.30); MONOCYTES % (AUTO) 7.8 % (2.0-12.0); NEUTROPHILS # (AUTO) 5.5 /CMM (1.8-8.9); NEUTROPHILS % (AUTO) 72.2 % (43.0-81.0); PLATELET COUNT (AUTO) 143 /CMM (150-450); RED BLOOD CELL COUNT(AUTO) 3.17 MIL/uL (4.5-6.0); WHITE BLOOD COUNT (AUTO) 7.7 K/uL (4.3-11.0)
[2019-01-08 06:48] LABS: CHOLESTEROL 102 mg/dL (<200); HDL CHOLESTEROL 55 mg/dL (40-60); LDL 43 mg/dL (0-99); TRIGLYCERIDES 78 mg/dL (30-150)
--- NOTE | 2019-01-08 06:55 | NUR ---
MEDIA DIRECTOR CLOSING NOTES Patient still sleeping in bed, but easily arousable. Breathing even and unlabored. Not in any distress. No complaints as of this time. Peripheral IV infusing at 50mL/hr. Tele monitor in place, SR - V-Pacing 60. No insulin coverage given as BSL 95. Will endorse ALONSO to oncoming RN
[2019-01-08 07:05] LABS: CALCIUM, SERUM 8.6 mg/dL (8.5-10.1); CARBON DIOXIDE 31 mmol/L (21-32); CHLORIDE 105 mmol/L (98-107); CREATININE 1.4 mg/dL (0.6-1.3); GLUCOSE 95 mg/dL (74-106); MAGNESIUM 1.5 mg/dL (1.8-2.4); PHOSPHORUS 4.1 mg/dL (2.5-4.9); SODIUM SERUM 144 mmol/L (136-145); UREA NITROGEN, BLOOD 25 mg/dL (7-18)
[2019-01-08] MEDS: PANTOPRAZOLE 40 MG TABLET.DR PO SCH (07:30)
[2019-01-08] MEDS: BLOOD SUGAR DIAGNOSTIC 1 EACH STRIP IN SCH ×4 (07:30→23:22)
--- NOTE | 2019-01-08 07:35 | NUR ---
ms rn received on bed, awake,alert,oriented x3,not in any form of distress, respirations even and unlabored,no sob noted, lungs are diminish, abdomen soft,positive bowel sounds,denies pain at this time,all needs attended.
[2019-01-08 08:00] VITALS: BP 145/46
[2019-01-08] MEDS ORDERED: Magnesium 1GM/D5W 100ML PREMIX PIGGYBACK IV ONE (08:30)
[2019-01-08] MEDS ORDERED: Magnesium 1GM/D5W 100ML PREMIX 100 ML IV SCH (08:30)
[2019-01-08] MEDS: HEPARIN SODIUM, PORCINE 5000 UNITS/1 ML VIAL SQ SCH ×2 (09:00→21:10)
[2019-01-08] MEDS: BENAZEPRIL HCL 20 MG TABLET PO SCH ×2 (09:00→17:00)
--- NOTE | 2019-01-08 09:00 | NUR ---
ms rn npo at this time, will monitor patient's condition, for surgery today.
[2019-01-08] MEDS ORDERED: [UNRECOGNIZED DRUG - CODE] EACHEYE (09:38)
[2019-01-08] MEDS ORDERED: TRAV5DRO EACHEYE (09:38)
[2019-01-08] MEDS ORDERED: HYDR-4077 PO (09:38)
[2019-01-08] MEDS ORDERED: METF-440 PO (09:38)
--- NOTE | 2019-01-08 11:00 | NUR ---
ms ball wasseen by dr. swain w/ orders made and carried out.
--- NOTE | 2019-01-08 11:55 | NUR ---
rn bs - 127 - no coverage noted.
[2019-01-08 13:25] LABS: APPEARANCE,URINE CLEAR (CLEAR); BILIRUBIN,URINE NEGATIVE (NEGATIVE); BLOOD, URINE TRACE-INTA Ery/uL (NEGATIVE); COLOR,URINE YELLOW (YELLOW); KETONES,URINE NEGATIVE (NEGATIVE); LEUKOCYTE ESTERASE ,URINE NEGATIVE (NEGATIVE); NITRITE, URINE NEGATIVE (NEGATIVE); PROTEIN,URINE NEGATIVE (NEGATIVE); UGLUCOSE NEGATIVE (NEGATIVE)
[2019-01-08 13:33] LABS: BACTERIA,URINE None seen /HPF (None Seen); EOSINOPHIL,URINE None Seen; SQUAMOUS EPITHELIAL CELL,UR Few /HPF (None Seen); WBC,URINE NONE SEEN /HPF (0-3)
[2019-01-08 13:34] LABS: CREATININE, URINE 59.2 MG/DL (30.0-125.0); URINE TOTAL PROTEIN 21.8 mg/dL (0-11.9)
--- NOTE | 2019-01-08 15:40 | NUR ---
ms rn patient went down to or for surgery.
[2019-01-08] MEDS ORDERED: BUPIVACAINE 0.25% 75 MG/30 ML VIAL ONE (15:45)
[2019-01-08] MEDS ORDERED: ANESTHESIA TRAY IN PYXIS 1 EA TRAY MC ONE (15:45)
[2019-01-08] MEDS ORDERED: BACITRACIN 50000 UNITS/VIAL ONE (15:47)
[2019-01-08] MEDS ORDERED: CLINDAMYCIN 900 MG/6 ML VIAL ONE (16:00)
[2019-01-08] MEDS ORDERED: ROCURONIUM BROMIDE 50 MG/5 ML ONE (16:00)
[2019-01-08] MEDS ORDERED: HYDROMORPHONE INJ 2 MG/ML DISP.SYRIN ONE (16:00)
[2019-01-08] MEDS ORDERED: TRANEXAMIC ACID 3,000 MG in SODIUM CHLORIDE IRRIG SOLUTION 70 ML IR ONE (17:30)
[2019-01-08 18:44] LABS: BASOPHILS % (AUTO) 0.2 % (0.0-2.0); EOSINOPHILS % (AUTO) 1.3 % (0.0-6.0); HEMATOCRIT 31 % (39-51); HEMOGLOBIN 10.8 g/dL (13.5-17.5); LYMPHOCYTES # (AUTO) 1.2 /CMM (0.8-4.8); LYMPHOCYTES % (AUTO) 12.2 % (20.0-44.0); MEAN CORPUSCULAR HGB CONC 35 g/dl (31.0-36.0); MEAN CORPUSCULAR VOLUME 98 fL (80-96); MONOCYTES # (AUTO) 0.4 /CMM (0.1-1.30); NEUTROPHILS # (AUTO) 8.2 /CMM (1.8-8.9); NEUTROPHILS % (AUTO) 82.3 % (43.0-81.0); PLATELET COUNT (AUTO) 133 /CMM (150-450); RED BLOOD CELL COUNT(AUTO) 3.19 MIL/uL (4.5-6.0); WHITE BLOOD COUNT (AUTO) 9.9 K/uL (4.3-11.0)
[2019-01-08 18:51] LABS: CALCIUM, SERUM 7.8 mg/dL (8.5-10.1); CARBON DIOXIDE 29 mmol/L (21-32); CHLORIDE 106 mmol/L (98-107); CREATININE 1.3 mg/dL (0.6-1.3); GLUCOSE 148 mg/dL (74-106); POTASSIUM 3.9 mmol/L (3.5-5.1); SODIUM SERUM 142 mmol/L (136-145); UREA NITROGEN, BLOOD 20 mg/dL (7-18)
--- NOTE | 2019-01-08 18:54 | NUR ---
ms rn still at recovery, will be here soon.
[2019-01-08] MEDS ORDERED: HYDROCODONE/APAP 5/325MG 1 EACH TABLET PO PRN (19:00)
--- NOTE | 2019-01-08 19:20 | NUR ---
RN Notes Patient came back from OR, S/P left hip arthroplasty, awake alert and oriented x3 with periods of forgetfulness. Patient denies pain at this time with some nausea. Vital signs stable. Left hip incision covered with dressing clean,dry and intact. Abductor pillow in place between legs. IV access patent and intact with ongoing IVF infusing well. Plan of care discussed with the patient and son at bedside and verbalized understanding. Safety measures and fall precaution in place with call light within reach. Will continue to monitor patient.
[2019-01-08] MEDS: INSULIN REGULAR, HUMAN 100 UNIT/ML 3 ML VIAL SQ PRN ×2 (19:37→23:25)
[2019-01-08 20:00] VITALS: BP 120/52
--- NOTE | 2019-01-08 21:03 | NUR ---
Met with patient and son John at bedside. Patient speaks South Korean and little Salvadorean.He lives locally alone in the back guest house on his son's property. Prior to admission, he was ambulating with a cane and walked miles everyday. He was independent with adl's. He owns a cane, Shower Chair with Back, Hand Held Shower. Family is requesting ARU at [place] when discharge. Plan for PT eval in am and referral to ARU. Addendum: 01/08/19 at 2104 by CATRACHITA MALDONADO RN Amended: Links added.
[2019-01-08] MEDS: LATANOPROST EYE DROP 0.005% 2.5 ML BOTTLE OP SCH (21:10)
[2019-01-08] MEDS: ATORVASTATIN 40 MG TABLET PO SCH (21:11)
[2019-01-08 22:00] VITALS: BP 122/59
[2019-01-08] MEDS: IV LR 1000 ML 1,000 ML IV PRN (23:13)
[2019-01-09 00:05] VITALS: BP 112/56
[2019-01-09] MEDS: MORPHINE SULFATE INJ 2 MG/ML DISP.SYRIN IV PRN (02:52)
--- NOTE | 2019-01-09 02:52 | NUR ---
RN Notes Patient complains of pain 8/10, Morphine 2 mg given IVP. Will continue to monitor patient.
[2019-01-09] MEDS: VANCOMYCIN 1 GM in IV D5W 250ml IV SCH ×2 (03:58→15:34)
--- NOTE | 2019-01-09 06:33 | NUR ---
RN Notes Patient sleep well overnight, vital signs stable, afebrile. Denies nausea and vomiting. Kept pain at tolerable level with current regimen. Monterroso cath intact with jerrell colored urine output, monterroso to be remove today in the afternoon. Abductor pillow in place and hip precaution observed. Safety measures and fall precaution observed. All needs attended. Will endorse to morning RN for continuity of care.
[2019-01-09 07:00] VITALS: BP 116/59
[2019-01-09] MEDS: BLOOD SUGAR DIAGNOSTIC 1 EACH STRIP IN SCH ×4 (07:03→22:13)
[2019-01-09] MEDS: INSULIN REGULAR, HUMAN 100 UNIT/ML 3 ML VIAL SQ PRN ×4 (07:05→22:27)
[2019-01-09 07:22] LABS: BASOPHILS % (AUTO) 0.3 % (0.0-2.0); EOSINOPHILS % (AUTO) 0.9 % (0.0-6.0); HEMATOCRIT 27 % (39-51); HEMOGLOBIN 9.3 g/dL (13.5-17.5); LYMPHOCYTES # (AUTO) 0.9 /CMM (0.8-4.8); LYMPHOCYTES % (AUTO) 10.5 % (20.0-44.0); MEAN CORPUSCULAR HGB CONC 34 g/dl (31.0-36.0); MEAN CORPUSCULAR VOLUME 97 fL (80-96); MONOCYTES # (AUTO) 0.7 /CMM (0.1-1.30); NEUTROPHILS # (AUTO) 6.6 /CMM (1.8-8.9); NEUTROPHILS % (AUTO) 80.3 % (43.0-81.0); PLATELET COUNT (AUTO) 131 /CMM (150-450); RED BLOOD CELL COUNT(AUTO) 2.79 MIL/uL (4.5-6.0); WHITE BLOOD COUNT (AUTO) 8.2 K/uL (4.3-11.0)
[2019-01-09 07:27] LABS: CARBON DIOXIDE 27 mmol/L (21-32); CHLORIDE 106 mmol/L (98-107); SODIUM SERUM 142 mmol/L (136-145)
[2019-01-09 07:42] LABS: CALCIUM, SERUM 7.8 mg/dL (8.5-10.1); CREATININE 1.4 mg/dL (0.6-1.3); GLUCOSE 213 mg/dL (74-106); UREA NITROGEN, BLOOD 21 mg/dL (7-18)
[2019-01-09 08:00] VITALS: BP 116/59
[2019-01-09] MEDS: PANTOPRAZOLE 40 MG TABLET.DR PO SCH (09:13)
[2019-01-09] MEDS: BENAZEPRIL HCL 20 MG TABLET PO SCH ×2 (09:14→16:51)
[2019-01-09] MEDS ORDERED: ENOXAPARIN SODIUM 40 MG/0.4 ML DISP.SYRIN SQ SCH (12:00)
[2019-01-09] MEDS: ENOXAPARIN SODIUM 30 MG/0.3 ML DISP.SYRIN SQ SCH (12:27)
[2019-01-09] MEDS: IV LR 1000 ML 1,000 ML IV PRN (15:34)
[2019-01-09] MEDS: ACETAMINOPHEN 325 MG TABLET PO PRN (15:36)
[2019-01-09 16:00] VITALS: BP 117/47
--- NOTE | 2019-01-09 18:00 | NUR ---
F/C REMOVED PER ORDER .URINAL PROVIDED. WILL MONITOR .
[2019-01-09 20:00] VITALS: BP_SYST 108; BP_SYST 109; BP_DIAS 54; BP_DIAS 60
--- NOTE | 2019-01-09 20:00 | NUR ---
MS/RN OPENING NOTES PT RECEIVED AWAKE, RESTING COMFORTABLY IN BED. A/OX3. ON 2L O2 VIA NC, BREATHING EVEN AND UNLABORED. DENIES SOB AND PAIN AT THIS TIME. DO REMOVED THIS AFTERNOON, WAITING FOR PT TO VOID. LEFT HIP SURGICAL DRESSING C/D/I. ABDUCTOR PILLOW IN PLACE. IV TO LAC PATENT AND INTACT. BED IN LOW/LOCKED POSITION, HOB ELEVATED, SIDE RAILS IN PALCE X2. WILL CONTINUE TO MONITOR
--- NOTE | 2019-01-09 22:00 | NUR ---
MS/RN NOTES PT VOIDED TWICE POST DO REMOVAL. MINIMAL CLEAR PINK OUTPUT NOTED. WILL MONITOR
[2019-01-09] MEDS: ATORVASTATIN 40 MG TABLET PO SCH (22:13)
[2019-01-09] MEDS: LATANOPROST EYE DROP 0.005% 2.5 ML BOTTLE OP SCH (22:13)
--- NOTE | 2019-01-10 00:37 | NUR ---
MS/RN NOTES PT SLEEPING ON/OFF. WARM BLANKETS PROVIDED. NO OTHER NEEDS AT THIS TIME.
--- NOTE | 2019-01-10 02:32 | NUR ---
MS/RN NOTES ASSISTED PT WITH USE OF THE URINAL. NO OTHER NEEDS EXPRESSED AT THIS TIME. Addendum: 01/10/19 at 0235 by MARY CISNEROS RN URINE OUTPUT CLEAR YELLOW AT THIS TIME
--- NOTE | 2019-01-10 04:37 | NUR ---
MS/RN NOTES PT ASLEEP. IN NO ACUTE DISTRESS. BREATHING EVEN AND UNLABORED.
[2019-01-10] MEDS: BLOOD SUGAR DIAGNOSTIC 1 EACH STRIP IN SCH ×2 (06:30→12:11)
[2019-01-10] MEDS: PANTOPRAZOLE 40 MG TABLET.DR PO SCH (06:30)
[2019-01-10] MEDS: INSULIN REGULAR, HUMAN 100 UNIT/ML 3 ML VIAL SQ PRN ×2 (06:34→12:15)
[2019-01-10 06:39] LABS: BASOPHILS % (AUTO) 0.2 % (0.0-2.0); EOSINOPHILS % (AUTO) 4.2 % (0.0-6.0); HEMATOCRIT 25 % (39-51); HEMOGLOBIN 8.8 g/dL (13.5-17.5); LYMPHOCYTES # (AUTO) 1.4 /CMM (0.8-4.8); LYMPHOCYTES % (AUTO) 19.8 % (20.0-44.0); MEAN CORPUSCULAR HGB CONC 35 g/dl (31.0-36.0); MEAN CORPUSCULAR VOLUME 96 fL (80-96); MONOCYTES # (AUTO) 0.6 /CMM (0.1-1.30); MONOCYTES % (AUTO) 8.3 % (2.0-12.0); NEUTROPHILS # (AUTO) 4.8 /CMM (1.8-8.9); NEUTROPHILS % (AUTO) 67.5 % (43.0-81.0); PLATELET COUNT (AUTO) 113 /CMM (150-450); RED BLOOD CELL COUNT(AUTO) 2.63 MIL/uL (4.5-6.0); WHITE BLOOD COUNT (AUTO) 7.1 K/uL (4.3-11.0)
[2019-01-10 06:49] LABS: CALCIUM, SERUM 7.9 mg/dL (8.5-10.1); CARBON DIOXIDE 29 mmol/L (21-32); CHLORIDE 105 mmol/L (98-107); CREATININE 1.3 mg/dL (0.6-1.3); GLUCOSE 163 mg/dL (74-106); POTASSIUM 3.8 mmol/L (3.5-5.1); SODIUM SERUM 140 mmol/L (136-145); UREA NITROGEN, BLOOD 22 mg/dL (7-18)
--- NOTE | 2019-01-10 07:08 | NUR ---
MS/RN CLOSING NOTES PT ASLEEP, OPENS EYES TO NAME. ON 2L O2 VIA NC, BREATHING EVEN AND UNLABORED. DENIES SOB AND PAIN AT THIS TIME. ENCOURAGED USE OF INCENTIVE SPIROMETER. LEFT HIP SURGICAL DRESSING C/D/I. ABDUCTOR PILLOW IN PLACE. ASSISTED WITH URINAL, CLEAR YELLOW OUTPUT NOTED. IV TO LAC PATENT AND INTACT. NO SIGNIFICANT CHANGES OVERNIGHT. BED IN LOW/LOCKED POSITION WITH CALL LIGHT IN REACH. BILATERAL UPPER SIDE RAILS IN PLACE. HOB ELEVATED. REFUSED TURNING/REPOSITIONING DESPITE FREQUENT EDUCATION OF RISKS/BENEFITS. ALL NEEDS MET. ENDORSED TO DAY SHIFT RN ALONSO.
[2019-01-10 08:00] VITALS: BP 119/65
[2019-01-10] MEDS: BENAZEPRIL HCL 20 MG TABLET PO SCH (08:26)
[2019-01-10] MEDS ORDERED: FUROSEMIDE 40 MG TABLET PO SCH (09:00)
[2019-01-10] MEDS ORDERED: CLOPIDOGREL BISULFATE 75 MG TABLET PO SCH (09:00)
[2019-01-10] MEDS ORDERED: TAMSULOSIN 0.4 MG CAP.SR.24H PO SCH (10:00)
[2019-01-10] MEDS: ENOXAPARIN SODIUM 30 MG/0.3 ML DISP.SYRIN SQ SCH (12:00)
--- NOTE | 2019-01-10 14:00 | NUR ---
RE[facility] .
--- NOTE | 2019-01-10 15:30 | NUR ---
PATIENT CLEARED FOR TRANSFER TO [facility] BY MD. PATIENT ALERT AND ORIENTED X4 ABLE, CHINESE SPEAKING WITH LITTLE MAORI AND ABLE TO MAKE NEEDS KNOWN.PATIENT ON O2 VIA NC 2L, FOR COMFORT, SATURATION 98%. VS ARE STABLE AND WITHIN NORMAL RANGE. ABDUCTION PILLOW IN PLACE. PATIENT WAS ABLE TO STAND UP FOR 5-7 MIN WITH PT ASSISTANCE. LEFT HIP SURGICAL DRESSING CLEAN AND INTACT. INCISIONAL WOUND PICTURE WAS NOT TAKEN DUE TO ORDER TO CHANGE DRESSING ONLY BY MD AT THE REHAB.MED RECONCILIATION PROVIDED. D/C INSTRUCTIONS AND TEACHING PROVIDED TO PATIENT AND HIS SON, BOTH VERBALIZED UNDERSTANDING.VALUABLE FORM SIGHED BY PATIENT AND ALL BELONGINGS WITH THE PATIENT. IV LINE REMOVED NO REDNESS OR SWELLING NOTED. ID WRIST BAND REMOVED.PATIENT PICKED UP BY AMBULANCE .
[2019-01-10 15:35] VITALS: BP 115/48
== END 2019-01-10 15:30 | DRG 469 ==
LOC: ER 14:37 → TELE 17:30 → MED 01-08 09:30 → MEDSG2 01-09 17:46
PROVIDERS: ADMIT Nurse Practitioner Acute Care; ATTEND Nurse Practitioner Acute Care
PROC: 0SRS0JZ Replacement of Left Hip Joint, Femoral Surface with Synthetic Substitute, Open Approach (ICD-10-PCS; principal; 2019-01-08)
DX: S72.002A Fracture of unspecified part of neck of left femur, initial encounter for closed fracture (principal); I50.43 Acute on chronic combined systolic (congestive) and diastolic (congestive) heart failure; N17.0 Acute kidney failure with tubular necrosis; I13.0 Hypertensive heart and chronic kidney disease with heart failure and stage 1 through stage 4 chronic kidney disease, or unspecified chronic kidney disease; I25.10 Atherosclerotic heart disease of native coronary artery without angina pectoris; Z95.1 Presence of aortocoronary bypass graft; Z95.0 Presence of cardiac pacemaker; E78.5 Hyperlipidemia, unspecified; E11.22 Type 2 diabetes mellitus with diabetic chronic kidney disease; L80 Vitiligo; D64.9 Anemia, unspecified; E83.42 Hypomagnesemia; W18.39XA Other fall on same level, initial encounter; Y92.89 Other specified places as the place of occurrence of the external cause; K21.9 Gastro-esophageal reflux disease without esophagitis; M16.0 Bilateral primary osteoarthritis of hip; M47.816 Spondylosis without myelopathy or radiculopathy, lumbar region; M85.80 Other specified disorders of bone density and structure, unspecified site; N18.9 Chronic kidney disease, unspecified; N40.0 Benign prostatic hyperplasia without lower urinary tract symptoms; Z79.02 Long term (current) use of antithrombotics/antiplatelets; Z79.84 Long term (current) use of oral hypoglycemic drugs; Z79.899 Other long term (current) drug therapy; Z95.5 Presence of coronary angioplasty implant and graft
CPT/HCPCS: 36415; 71045-TC; 72170-TC; 73502; 73552; 80048-TC; 80061-TC; 81000-TC; 82570-TC; 82962-TC; 83735-TC; 84100-TC; 84155-TC; 84300-TC; 84484-TC; 85025-TC; 85610-TC; 86850-TC; 87081-TC; 88305-TC; 88311-TC; 93307-TC; 97110-TC; 97112-TC; 97116-TC; 97530-TC; A4217; A6402; G0378; J1100; J1170; J1644; J1650; J1815; J2270; J2405; J2704; J2710; J3370; J3475; J3490; J7042; J7060; J7120

== ENCOUNTER 2019-03-26 14:06 | Emergency (ER) | payer MEDICARE, MEDICAID ==
[~2019-03-26] VITALS: Ht 175.3 cm; Wt 78.9 kg
[~2019-03-26 14:06] MED LIST changes: +HYDR-4077 PO; -HYDR-4384 PO; -LORA1TAB PO; +METF-440 PO; -METO25TA20 PO; +TRAV5DRO EACHEYE; +[UNRECOGNIZED DRUG - CODE] EACHEYE
--- NOTE | 2019-03-26 14:10 | NUR ---
BIB son sent by for ultrasound to bilateral lower extremities r/o blood clot. Patient a/ox3, son at bedside. No distress noted. WIll continue to monitor.
[2019-03-26 14:35] LABS: BASOPHILS % (AUTO) 0.3 % (0.0-2.0); EOSINOPHILS % (AUTO) 2.5 % (0.0-6.0); HEMATOCRIT 30 % (39-51); LYMPHOCYTES % (AUTO) 31.1 % (20.0-44.0); MEAN CORPUSCULAR HGB CONC 33 g/dl (31.0-36.0); MEAN CORPUSCULAR VOLUME 99 fL (80-96); MONOCYTES % (AUTO) 9.6 % (2.0-12.0); NEUTROPHILS # (AUTO) 2.6 /CMM (1.8-8.9); NEUTROPHILS % (AUTO) 56.5 % (43.0-81.0); PLATELET COUNT (AUTO) 187 /CMM (150-450); RED BLOOD CELL COUNT(AUTO) 3.03 MIL/uL (4.5-6.0); WHITE BLOOD COUNT (AUTO) 4.7 K/uL (4.3-11.0)
[2019-03-26 14:36] LABS: LYMPHOCYTES # (AUTO) 1.5 /CMM (0.8-4.8); MONOCYTES # (AUTO) 0.4 /CMM (0.1-1.30)
[2019-03-26 14:44] LABS: CALCIUM, SERUM 8.5 mg/dL (8.5-10.1); CARBON DIOXIDE 28 mmol/L (21-32); CHLORIDE 105 mmol/L (98-107); GLUCOSE 92 mg/dL (74-106); POTASSIUM 3.5 mmol/L (3.5-5.1); SODIUM SERUM 144 mmol/L (136-145); UREA NITROGEN, BLOOD 18 mg/dL (7-18)
[2019-03-26 15:03] LABS: ALANINE AMINOTRANSFERASE 29 U/L (12-78); ALBUMIN 3.5 g/dL (3.4-5.0); ALKALINE PHOSPHATASE 42 U/L (46-116); ASPARTATE AMINOTRANSFERASE 27 U/L (15-37); B-TYPE NATRIURETIC PEPTIDE 525 PG/ML (0-125); BILIRUBIN,DIRECT 0.1 mg/dL (0.0-0.2); BILIRUBIN,TOTAL 0.7 mg/dL (0.2-1.0); TOTAL PROTEIN, SERUM 7.2 g/dL (6.4-8.2)
--- NOTE | 2019-03-26 15:33 | NUR ---
Piv removed. Patient discharged to home in stable condition. Written and verbal after care instructions given. Patient verbalizes understanding of instruction.
[2019-03-26 15:34] VITALS: BP 149/70
== END 2019-03-26 15:35 | disposition home or self-care (01) ==
LOC: ER 14:12
DX: R22.42 Localized swelling, mass and lump, left lower limb (principal); I11.0 Hypertensive heart disease with heart failure; I50.9 Heart failure, unspecified; D64.9 Anemia, unspecified; E11.9 Type 2 diabetes mellitus without complications; F41.9 Anxiety disorder, unspecified; E78.00 Pure hypercholesterolemia, unspecified; Z95.0 Presence of cardiac pacemaker; Z98.890 Other specified postprocedural states; Z96.642 Presence of left artificial hip joint; Z88.6 Allergy status to analgesic agent; Z88.3 Allergy status to other anti-infective agents
CPT/HCPCS: 36415; 71045-TC; 80048-TC; 80076-TC; 83880; 84484-TC; 85025-TC; 93970-TC

== ENCOUNTER 2019-05-21 20:16 | Inpatient (IN) | payer MEDICARE, MEDICAID ==
[~2019-05-21] VITALS: Ht 172.7 cm; Wt 77.1 kg
--- NOTE | 2019-05-21 20:25 | NUR ---
BIBA FOR C/O ON AND OFF H/A FOR THE PAST TWO MONTHS
--- NOTE | 2019-05-21 20:35 | NUR ---
PICKED UP FOR CT
--- NOTE | 2019-05-21 20:43 | NUR ---
BACK FROM CT
--- NOTE | 2019-05-21 20:45 | NUR ---
NO FACIAL DROOP, NO ARM SWING, NO SLURRED SPEECH NOTED
[2019-05-21 21:30] LABS: BASOPHILS % (AUTO) 0.5 % (0.0-2.0); EOSINOPHILS % (AUTO) 1.8 % (0.0-6.0); HEMATOCRIT 30 % (39-51); HEMOGLOBIN 10.3 g/dL (13.5-17.5); LYMPHOCYTES # (AUTO) 1.3 /CMM (0.8-4.8); LYMPHOCYTES % (AUTO) 31.5 % (20.0-44.0); MEAN CORPUSCULAR HGB CONC 34 g/dl (31.0-36.0); MEAN CORPUSCULAR VOLUME 99 fL (80-96); MONOCYTES # (AUTO) 0.4 /CMM (0.1-1.30); MONOCYTES % (AUTO) 10.6 % (2.0-12.0); NEUTROPHILS # (AUTO) 2.3 /CMM (1.8-8.9); NEUTROPHILS % (AUTO) 55.6 % (43.0-81.0); PLATELET COUNT (AUTO) 159 /CMM (150-450); RED BLOOD CELL COUNT(AUTO) 3.07 MIL/uL (4.5-6.0); WHITE BLOOD COUNT (AUTO) 4.1 K/uL (4.3-11.0)
[2019-05-21 21:49] LABS: ALANINE AMINOTRANSFERASE 30 U/L (12-78); ALBUMIN 3.6 g/dL (3.4-5.0); ALKALINE PHOSPHATASE 36 U/L (46-116); ASPARTATE AMINOTRANSFERASE 25 U/L (15-37); BILIRUBIN,DIRECT 0.2 mg/dL (0.0-0.2); BILIRUBIN,TOTAL 0.9 mg/dL (0.2-1.0); CALCIUM, SERUM 9.1 mg/dL (8.5-10.1); CARBON DIOXIDE 30 mmol/L (21-32); CHLORIDE 102 mmol/L (98-107); CREATININE 1.3 mg/dL (0.6-1.3); GLUCOSE 140 mg/dL (74-106); POTASSIUM 3.4 mmol/L (3.5-5.1); SODIUM SERUM 140 mmol/L (136-145); TOTAL PROTEIN, SERUM 7.1 g/dL (6.4-8.2); UREA NITROGEN, BLOOD 23 mg/dL (7-18)
--- NOTE | 2019-05-21 22:01 | NUR ---
GOING TO [facility] BED 328-2
--- NOTE | 2019-05-21 22:05 | NUR ---
REPORT CALLED TO [facility]. WILL TRANSPORTPT VIA ACLS PROTOCOL.
--- NOTE | 2019-05-21 22:23 | NUR ---
PT WAS TRANSFERRED TO THIRD FLOOR UNDER ACLS
[2019-05-21 22:25] VITALS: BP 142/59
--- NOTE | 2019-05-21 22:25 | NUR ---
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 REPORTED DIZZINESS AND PAIN IN LEFT HIP FROM SURGICAL SITE WAS OPERATED 4 MONTHS AGO. PATIENT ALERT, ORIENTED X3, ABLE TO MAKE NEEDS KNOWN, BELONGINGS CHECK, ID BAND ON, ROOM ORIENTATION PROVIDED, DISCUSSED PLAN OF CARE. HOME MEDICATION REPORTED AND HOME MEDS TO TAKE TO PHARMACY FOR SAFETY. PATIENT SON ARYAN WAS CONTACTED AND MADE AWARE ABOUT HIS FATHER IS IN THE HOSPITAL. ORDERS ORDERE BY T[facility] BLAS, PAIN OF 3/10 AND TYLENOL TO BE GIVE, LEFT AC GAUGE 20 , VITAL SIGNS CHECKED.
[2019-05-21] MEDS ORDERED: ONDANSETRON HCL/PF 4 MG/2 ML VIAL IVP PRN (22:30)
[2019-05-21] MEDS ORDERED: DEXTROSE 50%-WATER 50 ML DISP.SYRIN IV PRN (22:30)
[2019-05-21] MEDS ORDERED: MAGNESIUM HYDROXIDE 30 ML UDC PO PRN (22:30)
[2019-05-21] MEDS ORDERED: ACETAMINOPHEN 325 MG TABLET PO PRN (22:30)
[2019-05-21] MEDS ORDERED: HYDROCODONE/APAP 10/325MG 1 EA TABLET PO PRN (22:30)
[2019-05-21] MEDS ORDERED: MAG HYDROX/AL HYDROX/SIMETH 30 ML UDC PO PRN (22:30)
[2019-05-21] MEDS ORDERED: TEMAZEPAM 15 MG CAPSULE PO PRN (22:30)
[2019-05-21] MEDS ORDERED: HYDROCODONE/APAP 5/325MG 1 EACH TABLET PO PRN (22:30)
[2019-05-21 23:07] VITALS: BP 142/59
[2019-05-22 00:31] VITALS: BP 104/41
[2019-05-22 04:19] VITALS: BP 108/45
[2019-05-22 04:38] LABS: BASOPHILS % (AUTO) 0.4 % (0.0-2.0); EOSINOPHILS % (AUTO) 2.6 % (0.0-6.0); HEMATOCRIT 30 % (39-51); HEMOGLOBIN 10.3 g/dL (13.5-17.5); LYMPHOCYTES # (AUTO) 1.5 /CMM (0.8-4.8); LYMPHOCYTES % (AUTO) 40.4 % (20.0-44.0); MEAN CORPUSCULAR HGB CONC 34 g/dl (31.0-36.0); MEAN CORPUSCULAR VOLUME 99 fL (80-96); MONOCYTES # (AUTO) 0.4 /CMM (0.1-1.30); MONOCYTES % (AUTO) 11.7 % (2.0-12.0); NEUTROPHILS # (AUTO) 1.7 /CMM (1.8-8.9); NEUTROPHILS % (AUTO) 44.9 % (43.0-81.0); PLATELET COUNT (AUTO) 153 /CMM (150-450); RED BLOOD CELL COUNT(AUTO) 3.06 MIL/uL (4.5-6.0); WHITE BLOOD COUNT (AUTO) 3.7 K/uL (4.3-11.0)
[2019-05-22 04:53] LABS: CALCIUM, SERUM 8.6 mg/dL (8.5-10.1); CARBON DIOXIDE 30 mmol/L (21-32); CHLORIDE 106 mmol/L (98-107); CREATININE 1.1 mg/dL (0.6-1.3); GLUCOSE 132 mg/dL (74-106); MAGNESIUM 1.8 mg/dL (1.8-2.4); PHOSPHORUS 3.6 mg/dL (2.5-4.9); POTASSIUM 3.2 mmol/L (3.5-5.1); SODIUM SERUM 145 mmol/L (136-145); UREA NITROGEN, BLOOD 21 mg/dL (7-18)
[2019-05-22 05:07] LABS: CHOLESTEROL 111 mg/dL (<200); HDL CHOLESTEROL 54 mg/dL (40-60); LDL 48 mg/dL (0-99); THYROID STIMULATING HORMONE 3.539 uIU/mL (0.358-3.74); TRIGLYCERIDES 58 mg/dL (30-150)
--- NOTE | 2019-05-22 05:16 | NUR ---
MS/RN NOTES LATEST LAB POTASSIUM LEVEL RECEIVED AT 3.2 LEVEL AND 2ND TROPONIN LEVEL AT 0.090h MD MADE AWARE WITH NO NEW ORDER FOR NOW.
[2019-05-22] MEDS: BLOOD SUGAR DIAGNOSTIC 1 EACH STRIP IN SCH ×4 (06:39→21:05)
--- NOTE | 2019-05-22 06:54 | NUR ---
327-2 MS/RN NOTES PATIENT CAN OPEN EYES AND RESPOND WITH SIMPLE WORDS, RESPIRATIONS EVEN AND UNLABORED, ZOFRAN GIVEN FOR VOMITING EPISODE, GTUBE RUNNING ANT LOW LEVEL 20 AND TOINCREASE 10 ML EVERY 8 HR UNTIL 50. WILL ENDORSE TO AM RN FOR ALONSO,
--- NOTE | 2019-05-22 07:30 | NUR ---
TASSEL SNIPPER OPENING NOTES RECEIVED PATIENT IN BED, ALERT AND AWAKE. ORIENTED X3. DENIES ANY C/O PAIN NOR DISCOMFORT AT THIS TIME. NO SOB OBSERVED. HOB ELEVATED. LEFT AC #18 INTACT AND PATENT. ON TELE MONITORING SR: 60. BED IN LOWEST POSITION. CALL LIGHT WITHIN REACH. BED ALARM ON. BED SIDERAIL S UP X2.
[2019-05-22] MEDS: PANTOPRAZOLE 40 MG TABLET.DR PO SCH (07:54)
[2019-05-22 08:14] VITALS: BP 92/53
[2019-05-22] MEDS: CLOPIDOGREL BISULFATE 75 MG TABLET PO SCH (08:31)
[2019-05-22] MEDS: CHOLECALCIFEROL 1,000 UNIT TABLET (VIT D3) PO SCH (08:32)
[2019-05-22] MEDS: MECLIZINE HCL 25 MG TABLET PO SCH ×5 (08:32→17:56)
--- NOTE | 2019-05-22 08:47 | NUR ---
ANDROID PLATFORM DEVELOPER NOTES PATIENT REFUSED ANTIVERT OFFERED X3, STRONGLY REFUSED, DESPITE OF RISKS AND BENEFITS EXPLAINED. PATIENT STATES, "IT DOES NOT WORK FOR ME."
--- NOTE | 2019-05-22 08:48 | NUR ---
PRESS BRAKE OPERATOR NOTES HELP BP MEDS DUE TO LOW BP 92/53.
[2019-05-22] MEDS ORDERED: BENAZEPRIL HCL 10 MG TABLET PO SCH (09:00)
[2019-05-22] MEDS ORDERED: hydrALAZINE HCL 50 MG TABLET PO SCH (09:00)
[2019-05-22] MEDS ORDERED: SODIUM CHLORIDE 5% SOLN OPHTH 15 ML BOTTLE EACHEYE SCH (09:00)
[2019-05-22] MEDS: SODIUM CHLORIDE 5% SOLN OPHTH 15 ML BOTTLE EACHEYE SCH ×4 (09:54→20:58)
[2019-05-22] MEDS ORDERED: IV NS 0.9% 1,000 ML IV PRN (10:20)
--- NOTE | 2019-05-22 10:20 | NUR ---
MS RN NOTES SEEN BY DR. NEWMAN, WITH NEW ORDERS NOTED AND CARRIED OUT. RELAYED TROP LEVEL TO DR. NEWMAN, PER MD HE IS AWARE.
--- NOTE | 2019-05-22 10:39 | NUR ---
CLINICAL ORTHOPTIST NOTES SEEN BY DONIS FROM [facility] FOR PACEMAKER CHECK, PER DONIS RESULT IS NORMAL PACER FUNCTION.
[2019-05-22] MEDS: POTASSIUM CHLORIDE 20 MEQ TAB.PRT.SR PO SCH ×3 (10:51→13:15)
--- NOTE | 2019-05-22 11:00 | NUR ---
MS RN NOTES SEEN BY DR. DIAZ, PATIENT DISCUSSED WITH MD REGARDING DIZZINESS. INFORMED DR. DIAZ THAT PATIENT HAD REFUSED HIS ANTIVERT DESPITE OF RISK AND BENEFITS EXPLAINED ALSO REGARDING EENT CONSULT. PER DR. DIAZ, HE HAD DISCUSSED WITH PATIENT RE: ANTIVERT AND HE AGREES NOW AND DR. DIAZ ALSO DISCUSSED WITH PATIENT THAT EENT CONSULT IS OUTPATIENT AND PATIENT WILL NEED TO SCHEDULE AN APPT WHEN HE GETS DISCHARGE.
--- NOTE | 2019-05-22 11:15 | NUR ---
MS RN NOTES ANTIVERT GIVEN DUE TO C/O DIZZINESS.
[2019-05-22] MEDS ORDERED: hydrALAZINE HCL 50 MG TABLET PO PRN (11:30)
[2019-05-22] MEDS: predniSONE 20 MG TABLET PO SCH (11:46)
[2019-05-22 16:02] VITALS: BP 94/60
[2019-05-22] MEDS: INSULIN REGULAR, HUMAN 100 UNIT/ML 3 ML VIAL SQ PRN ×2 (18:02→21:12)
--- NOTE | 2019-05-22 19:49 | NUR ---
MS RN CLOSING NOTES PATIENT RESTING COMFORTABLY IN BED. DENIES ANY C/O PAIN NOR DISCOMFORT AT THIS TIME. NO SOB OBSERVED. HOB ELEVATED. LEFT AC #18 INTACT AND PATENT. ABLE TO VERBALIZE NEEDS. BED IN LOWEST POSITION. CALL LIGHT WITHIN REACH. BED ALARM ON. BED SIDERAILS UP X2. FALL PRECAUTIONS OBSERVED AT ALL TIMES. REMINDED PATIENT TO USE BEDSIDE COMMODE FOR BM DUE TO DX OF VERTIGO.
--- NOTE | 2019-05-22 19:59 | NUR ---
MS/RN OPENING NOTES PATIENT IN BED, RESTING COMFORTABLY IN BED, ON OXYGEN VIA NC, RESPIRATIONS EVEN AND UNLABORED, OFFERED FLUIDS AND ABLE TO TOLERATE WELL. SKIN WARM TO TOUCH, ABLE TO VERBALIZE NEEDS AT ALL TIMES. NO GRIMACE OR GUARDING NORED. WILL CONTIUE TO MONITOR, IV ON LEFT AC PATENT. BED LOCKED CALL LIGHTS WITHIN REACH. WILL MONITOR.
[2019-05-22 20:00] VITALS: BP 92/61
[2019-05-22 20:18] VITALS: BP 92/61
[2019-05-22] MEDS ORDERED: TAMSULOSIN 0.4 MG CAP.SR.24H PO SCH (22:00)
[2019-05-22] MEDS ORDERED: TRAVOPROST (BENZALKONIUM) 2.5 ML BOTTLE OP SCH (22:00)
[2019-05-22] MEDS ORDERED: LATANOPROST EYE DROP 0.005% 2.5 ML BOTTLE EACHEYE SCH (22:00)
[2019-05-22] MEDS ORDERED: ATORVASTATIN 40 MG TABLET PO SCH (22:00)
[2019-05-23] MEDS: MECLIZINE HCL 25 MG TABLET PO SCH ×2 (01:00→09:41)
--- NOTE | 2019-05-23 02:34 | NUR ---
MS/RN NOTES PATIENT AWAKEN FROM SLEEP AND DISCUSSED CARE PATIENT REQUESTED BLOOD SUGAR CHECK AND CONCERN WHY IS STILL HIGH WHEN HE JUST HAD INSULIN BEFORE BEDTIME, DISCUSSED MEDICATION THAT CAN CAUSE ELEVATED BLOOD SUGAR BUT PATIENT STILL WANT TO KEEP BLOOD SUGAR LOW AND WOULD LIKE ORAL MEDICATIONBE USED INSTEAD THAN INSULIN ,DELILAH WORRIED PATIENT MAY NEED HELP UPON DISCHARGE THAT REQUIRE OYSTER CULTIVATOR /SOCAL WORKER , DELILAH LIVES ALONE WITH OCCASIONAL HELP FROM SON. TO FOLLOW UP.
--- NOTE | 2019-05-23 04:00 | NUR ---
MS/RN NOTES PATIENT REQUESTING INSULIN BE ADMINISTERED FOR BLOOD SUGAR AT 191 AND PREFER 4 UNIT CHARGE NURSE AND BRUSH SANDER INFORMED, AND EXHIBITING AGITATION PREFER TO HAVE IT AT THE TIME, PATIENT HAD CRANBERRY AND A CRACKERS AFTER, WILL RECHECK AGAIN BEFORE BREAKFAST,
[2019-05-23] MEDS: BLOOD SUGAR DIAGNOSTIC 1 EACH STRIP IN SCH (06:20)
[2019-05-23] MEDS: INSULIN REGULAR, HUMAN 100 UNIT/ML 3 ML VIAL SQ PRN (06:31)
--- NOTE | 2019-05-23 06:37 | NUR ---
ms/rn notes blood sugar check at 175 and sliding scale given patietn had snacks.
--- NOTE | 2019-05-23 06:58 | NUR ---
MS/RN NOTES PATIENT AWAKE, ABLE TO VERBALIZE NEEDS AT ALL TIMES, PATIENT EDUCATED REGARDING MEDICATION AND PATIENT VERBALIZE HOW HE TAKES HIS MED THAT HE WORRIE TO HAVE ELEVATED BLOOD SUGAR, PATIENT ASK FOR SNACKS AND NOTED BLOOD SUGAR WENT UP, ALSO WORRY THAT HIS VISION WILL BE LOST WITH MEDICATION OR NOT TAKING THEM, REQUIRE CONSTANT AWARENESS AND REMIINDER PATIENT REFUSE TO BE EDUCATED AND PROVIDED ASSISTANCE, ONLY MORE HIGHR NEED FOR ASSISTANCE FOR PROPER CARE NEEDED PATIENT BEHAVIOR CHANGES AND BECOME EASILY UPSET AND CAN RAISE VOICE.. WILL MONITOR.
--- NOTE | 2019-05-23 07:15 | NUR ---
MS RN OPENING NOTES RECEIVED PATIENT IN BED WITH HOB ELEVATED. NO SOB OBSERVED. DENIES ANY C/O PAIN NOR DISCOMFORT. PATIENT STATED, "I AM GOING HOME AFTER BREAKFAST." RE-EDUCATED PATIENT THAT MD WILL BE COMING TODAY AND WILL TALK TO MD REGARDING WANTING TO GO HOME. LEFT AC #18 INTACT AND PATENT. BED IN LOWEST POSITION. CALL LIGHT WITHIN REACH. BED ALARM ON.
[2019-05-23] MEDS: PANTOPRAZOLE 40 MG TABLET.DR PO SCH (07:44)
[2019-05-23 08:00] VITALS: BP 84/53
--- NOTE | 2019-05-23 08:30 | NUR ---
MS RN NOTES CALLED ARYAN AND LEFT MESSAGE ABOUT PATIENT VERBALIZING OF WANTING TO GO HOME TODAY. AWAITING FOR RESPONSE.
[2019-05-23] MEDS: SODIUM CHLORIDE 5% SOLN OPHTH 15 ML BOTTLE EACHEYE SCH (09:41)
[2019-05-23] MEDS: predniSONE 20 MG TABLET PO SCH (09:41)
[2019-05-23] MEDS: CHOLECALCIFEROL 1,000 UNIT TABLET (VIT D3) PO SCH (09:41)
[2019-05-23] MEDS: CLOPIDOGREL BISULFATE 75 MG TABLET PO SCH (09:41)
--- NOTE | 2019-05-23 09:58 | NUR ---
MS RN NOTES PATIENT SEEN BY PHYSICAL THERAPY, ALSO AMBULATED ALONG UNIT DWAINE WELL.
--- NOTE | 2019-05-23 10:00 | NUR ---
MS RN NOTES ARYAN SON CAME TO UNIT. NOTIFIED SON OF PATIENT VERBALIZING AND WANTING TO GO HOME AND AT THIS TIME WE ARE WAITING FOR DR. DIAZ.
--- NOTE | 2019-05-23 10:12 | NUR ---
MS RN NOTES DR. DIAZ CAME AND RELAYED PATIENT'S REQUEST OF GOING HOME. NOTIFIED MD THAT PATIENT DWAINE PHYSICAL THERAPY WELL WITHOUT C/O DIZZINESS, WEAKNESS NOR ANY DISCOMFORT AND AMBULATED AROUND UNIT WITH STEADY GAIT WITH WALKER
--- NOTE | 2019-05-23 12:00 | NUR ---
MS RN NOTES DR. DIAZ CAME IN TO PATIENT'S ROOM AND DISCUSSED PATIENT'S CURRENT MEDICAL CONDITION, USE OF ANTIHYPERTENSIVE MEDS. EDUCATION AND EXPLANATION OF RISKS AND BENEFITS GIVEN TO PATIENT AND SON BY DR. DIAZ AND BOTH VERBALIZES UNDERSTANDING. PATIENT WITH ORDER FOR DISCHARGE TO HOME.
--- NOTE | 2019-05-23 12:10 | NUR ---
MS RN CLOSING/DISCHARGE NOTES DISCHARGE PACKET AND INSTRUCTIONS GIVEN TO PATIENT'S SON (ARYAN) DISCHARGE EDUCATION DISCUSSED AGAIN WITH PATIENT AND SON. DISCHARGE PACKET GIVEN TO SON (ARYAN). LEFT AC SALINE LOCK REMOVED WITH CATHETER TIP INTACT WITH GAUZE DRESSING APPLIED. REMINDED PATIENT AND SON THAT EENT NEEDS TO BE SCHEDULED FOR OUTPATIENT CLINIC. HOME MEDS PICKED UP FROM PHARMACY AND GIVEN TO PATIENT. ALL BELONGINGS ACCOUNTED FOR. PATIENT DISCHARGE TO HOME WITH SON VIA PRIVATE CAR. LEFT IN STABLE CONDITION. IN NO APPARENT DISTRESS.
--- NOTE | 2019-05-23 13:14 | NUR ---
financial services sales representative consult requested by Braulio Weiss DNP because pt lives alone and assistance is needed. SW consulted with [employer] Maegan to explore placement options for pt for discharge planning. [employer] confirmed working with pt and pt family, and states that pt will be returning back home with son; pt lives in son�s guest house and receives support from family.
== END 2019-05-23 12:08 | disposition home or self-care (01) | DRG 280 ==
LOC: ER 20:16 → TELE 22:05 → MED 05-22 11:28
PROVIDERS: ADMIT Nurse Practitioner Acute Care; ATTEND Internal Medicine
DX: I95.1 Orthostatic hypotension (principal); N17.0 Acute kidney failure with tubular necrosis; I21.A1 Myocardial infarction type 2; I50.33 Acute on chronic diastolic (congestive) heart failure; I13.0 Hypertensive heart and chronic kidney disease with heart failure and stage 1 through stage 4 chronic kidney disease, or unspecified chronic kidney disease; E78.5 Hyperlipidemia, unspecified; R27.0 Ataxia, unspecified; H81.10 Benign paroxysmal vertigo, unspecified ear; I11.0 Hypertensive heart disease with heart failure; I25.10 Atherosclerotic heart disease of native coronary artery without angina pectoris; H40.9 Unspecified glaucoma; L80 Vitiligo; E11.22 Type 2 diabetes mellitus with diabetic chronic kidney disease; N18.9 Chronic kidney disease, unspecified; Z96.642 Presence of left artificial hip joint; Z95.5 Presence of coronary angioplasty implant and graft; Z95.1 Presence of aortocoronary bypass graft; Z87.440 Personal history of urinary (tract) infections; Z79.899 Other long term (current) drug therapy; Z79.84 Long term (current) use of oral hypoglycemic drugs; Z79.02 Long term (current) use of antithrombotics/antiplatelets; K21.9 Gastro-esophageal reflux disease without esophagitis; I70.0 Atherosclerosis of aorta; Z88.8 Allergy status to other drugs, medicaments and biological substances; Z95.0 Presence of cardiac pacemaker
CPT/HCPCS: 36415; 70450-TC; 80048-TC; 80061-TC; 80076-TC; 82962-TC; 83735-TC; 84100-TC; 84443-TC; 84484-TC; 85025-TC; 85730-TC; 97110-TC; 97116-TC; 97530-TC; G0378; J1815; J8597